=== PATIENT | male | born 1955 | race Caucasian/White ===

== ENCOUNTER 2019-03-13 04:02 | Inpatient (IN) | payer MEDICARE, OTHER, MEDICAID ==
[2019-03-13] MEDS ORDERED: Sodium Chloride 0.9% 10 ML Syringe FLUSH PRN (04:18)
[2019-03-13] MEDS ORDERED: Albuterol/Ipratropium 3.0-0.5 MG/3 ML Neb Soln NEB ONE (04:19)
--- NOTE | 2019-03-13 04:29 | EDM.PDOC ---
<Shay Mckenna Nilton - Last Filed: 03/13/19 06:17> ED HPI GENERAL MEDICAL PROBLEM - General Chief Complaint: Respiratory Problem Stated Complaint: [facility] Time Seen by Provider: 03/13/19 04:15 Source of Information: Reports: Patient, EMS, Long-Term Records, RN Notes Reviewed - History of Present Illness INITIAL COMMENTS - FREE TEXT/NARRATIVE: 63-year-old male has been brought by [facility] for evaluation of cough and difficulty breathing. He states he began becoming more short of breath than usual about a week ago. He has been coughing more than usual as well for about a week. His cough and breathing has worsened over the last 1-2 days and especially since last evening. He developed more severe respiratory distress early this morning and also noted to be dropping his oxygen level and increasing his heart rate. At that point EMS was called to transport patient here to the ED. On arrival to the ED he is on oxygen 6 L nasal cannula, still feeling short of breath. He states his cough is frequently productive of yellowish-green phlegm. He has no chest pain other than the sensation of difficulty breathing. No abdominal pain or vomiting. Patient will chills but no definite fever. He is insulin-dependent diabetic. He also does have history of hypertension and morbid obesity. - Related Data Allergies Allergy/AdvReac Type Severity Reaction Status Date / Time No Known Allergies Allergy Verified 03/13/19 04:15 Home Meds: Home Meds Aspirin 81 mg PO DAILY 11/08/15 [History] FLUoxetine [PROzac] 40 mg PO DAILY 11/08/15 [History] Lisinopril 20 mg PO DAILY 11/08/15 [History] Metoprolol Succinate [Toprol XL] 25 mg PO DAILY 11/08/15 [History] Rosuvastatin [Crestor] 10 mg PO DAILY 11/08/15 [History] metFORMIN HCl [Metformin HCl ER] 750 mg PO DAILY 11/08/15 [History] Exenatide Microspheres [Bydureon Pen] 2 mg SUBCUT WEEKLY 03/13/19 [History] FLUoxetine HCl [Fluoxetine HCl] 60 mg PO DAILY 03/13/19 [History] Furosemide [Lasix] 40 mg PO DAILY 03/13/19 [History] Insulin Aspart [NovoLOG] 25 unit SUBCUT TIDAC 03/13/19 [History] Insulin Glargine,Hum.Rec.Anlog [Blake Chavarria] 105 units SUBCUT DAILY [History] Insulin Lispro [Humalog Kwikpen U-100] 12 units SUBCUT DAILY 03/13/19 [History] Potassium Chloride [K-Tab ER] 20 meq PO DAILY 03/13/19 [History] busPIRone HCl [busPIRone] 30 mg PO BEDTIME 03/13/19 [History] Past Medical History HEENT History: Reports: Cataract Cardiovascular History: Reports: Hypertension Respiratory History: Reports: Sleep Apnea Genitourinary History: Reports: Urinary Incontinence Endocrine/Metabolic History: Reports: Diabetes, Type II, Obesity/BMI 30+ Dermatologic History: Reports: Cellulitis - Past Surgical History HEENT Surgical History: Reports: Cataract Surgery Social & Family History - Family History Family Medical History: Unobtainable Other HEENT Family History: Patient unsure of family medical history ED ROS GENERAL - Review of Systems Review Of Systems: See Below Constitutional: Reports: Chills. Denies: Fever HEENT: Denies: Rhinitis, Throat Pain Respiratory: Reports: Shortness of Breath, Wheezing, Cough, Sputum Cardiovascular: Denies: Chest Pain GI/Abdominal: Denies: Abdominal Pain, Vomiting Musculoskeletal: Reports: No Symptoms Skin: Denies: Rash Neurological: Reports: Dizziness ED EXAM, GENERAL - Physical Exam Exam: See Below General Appearance: Alert, Moderate Distress Eye Exam: Bilateral Eye: PERRL Throat/Mouth: Normal Inspection Head: Atraumatic Neck: Supple Respiratory/Chest: Respiratory Distress (Moderate tachypnea), Decreased Breath Sounds (Rapid shallow respirations). No: Rhonchi, Wheezing Cardiovascular: Tachycardia GI/Abdominal: Distended (Quite markedly obese). No: Guarding, Tender Back Exam: Normal Inspection Extremities: Pedal Edema (Trace bilateral) Neurological: Alert, Oriented, No Motor/Sensory Deficits Skin Exam: Warm, Dry, Normal Color EKG INTERPRETATION EKG Date: 03/13/19 Rhythm: Other (Sinus tachycardia) Rate (Beats/Min): 115 [place]: Normal P-Wave: Present QRS: Normal ST-T: Normal Course - Vital Signs Last Recorded V/S: Last Vital Signs Temp 36.4 C 03/13/19 04:11 Pulse 99 03/13/19 05:16 Resp 33 H 03/13/19 04:11 BP 102/62 03/13/19 05:16 Pulse Ox 94 L 03/13/19 04:19 - Orders/Labs/Meds Orders: Active Orders 24 hr Category Date Time Status EKG 12 Lead [EKG Documentation Completion] [] STAT Care 03/13/19 04:18 Active Oxygen Therapy [RC] ASDIRECTED Care 03/13/19 04:18 Active Peripheral IV Care [RC] . DIRECTED Care 03/13/19 04:18 Active RT Aerosol Therapy [RC] ASDIRECTED Care 03/13/19 04:19 Active CULTURE BLOOD [BC] Stat Lab 03/13/19 04:25 Received CULTURE BLOOD [BC] Stat Lab 03/13/19 05:10 Received CULTURE SPUTUM + SMEAR [] Stat Lab 03/13/19 05:50 Received Piperacillin/Tazobactam [Piperacil-Tazobact] 4.5 gm Med 03/13/19 04:53 Active Sodium Chloride 0.9% [Normal Saline] 100 ml IV ONETIME Sodium Chloride 0.9% [Saline Flush] Med 03/13/19 04:18 Active 10 ml FLUSH ASDIRECTED PRN Peripheral IV Insertion Adult [OM.PC] Stat Oth 03/13/19 04:18 Ordered Medication Orders Piperacillin Sod/Tazobactam (Sod 4.5 gm/ Sodium Chloride) 100 mls @ 25 mls/hr IV ONETIME ONE Stop: 03/13/19 08:52 Last Admin: 03/13/19 06:44 Dose: 25 mls/hr Sodium Chloride (Saline Flush) 10 ml FLUSH ASDIRECTED PRN PRN Reason: Keep Vein Open Last Admin: 03/13/19 04:33 Dose: 10 ml Labs: Laboratory Tests 03/13/19 03/13/19 03/13/19 Range/Units 04:25 04:25 04:25 WBC 11.45 H (4.23-9.07) K/mm3 RBC 5.26 (4.63-6.08) M/mm3 Hgb 14.7 (13.7-17.5) gm/L Hct 46.9 (40.1-51.0) % MCV 89.2 (79.0-92.2) fl MCH 27.9 (25.7-32.2) pg MCHC 31.3 L (32.2-35.5) g/dl RDW Std Deviation 49.7 H (35.1-43.9) fL Plt Count 205 D (163-337) K/mm3 MPV 11.2 (9.4-12.3) fl Neutrophils % (Manual) 64 H (40-60) % Band Neutrophils % 6 (0-10) % Lymphocytes % (Manual) 15 L (20-40) % Atypical Lymphs % 0 % Monocytes % (Manual) 15 H (2-10) % Eosinophils % (Manual) 0 L (0.8-7.0) % Basophils % (Manual) 0 L (0.2-1.2) Toxic Granulation 1+ slight Platelet Estimate Adequate Plt Morphology Comment See note Hypochromasia 1+ slight Anisocytosis 1+ slight RBC Morph Comment Not Reportable Sodium 140 (136-145) mEq/L Potassium 4.5 (3.5-5.1) mEq/L Chloride 104 (98-107) mEq/L Carbon Dioxide 29 (21-32) mEq/L Anion Gap 11.5 (5-15) BUN 23 H (7-18) mg/dL Creatinine 0.9 (0.7-1.3) mg/dL Est Cr Clr Drug Dosing TNP Estimated GFR (MDRD) > 60 (>60) mL/min BUN/Creatinine Ratio 25.6 H (14-18) Glucose 182 H (80-115) mg/dL Lactic Acid (0.4-2.0) mmol/L Calcium 8.9 (8.5-10.1) mg/dL Total Bilirubin 0.6 (0.2-1.0) mg/dL AST 11 L (15-37) U/L ALT 20 (16-63) U/L Alkaline Phosphatase 99 (46-116) U/L C-Reactive Protein 18.6 H* (<1.0) mg/dL NT-Pro-B Natriuret Pep (0-125) pg/mL Total Protein 7.1 (6.4-8.2) g/dl Albumin 3.1 L (3.4-5.0) g/dl Globulin 4.0 gm/dL Albumin/Globulin Ratio 0.8 L (1-2) 03/13/19 03/13/19 Range/Units 04:25 04:25 WBC (4.23-9.07) K/mm3 RBC (4.63-6.08) M/mm3 Hgb (13.7-17.5) gm/L Hct (40.1-51.0) % MCV (79.0-92.2) fl MCH (25.7-32.2) pg MCHC (32.2-35.5) g/dl RDW Std Deviation (35.1-43.9) fL Plt Count (163-337) K/mm3 MPV (9.4-12.3) fl Neutrophils % (Manual) (40-60) % Band Neutrophils % (0-10) % Lymphocytes % (Manual) (20-40) % Atypical Lymphs % % Monocytes % (Manual) (2-10) % Eosinophils % (Manual) (0.8-7.0) % Basophils % (Manual) (0.2-1.2) Toxic Granulation Platelet Estimate Plt Morphology Comment Hypochromasia Anisocytosis RBC Morph Comment Sodium (136-145) mEq/L Potassium (3.5-5.1) mEq/L Chloride (98-107) mEq/L Carbon Dioxide (21-32) mEq/L Anion Gap (5-15) BUN (7-18) mg/dL Creatinine (0.7-1.3) mg/dL Est Cr Clr Drug Dosing Estimated GFR (MDRD) (>60) mL/min BUN/Creatinine Ratio (14-18) Glucose (80-115) mg/dL Lactic Acid 1.3 (0.4-2.0) mmol/L Calcium (8.5-10.1) mg/dL Total Bilirubin (0.2-1.0) mg/dL AST (15-37) U/L ALT (16-63) U/L Alkaline Phosphatase (46-116) U/L C-Reactive Protein (<1.0) mg/dL NT-Pro-B Natriuret Pep 147 H (0-125) pg/mL Total Protein (6.4-8.2) g/dl Albumin (3.4-5.0) g/dl Globulin gm/dL Albumin/Globulin Ratio (1-2) Meds: Medications Generic Name Dose Route Start Last Admin Trade Name Freq PRN Reason Stop Dose Admin Piperacillin Sod/Tazobactam 100 mls @ 25 mls/hr 03/13/19 04:53 03/13/19 06:44 Sod 4.5 gm/ Sodium Chloride IV 03/13/19 08:52 25 mls/hr ONETIME ONE Administration Sodium Chloride 10 ml 03/13/19 04:18 03/13/19 04:33 Saline Flush FLUSH 10 ml ASDIRECTED PRN Administration Keep Vein Open Discontinued Medications Generic Name Dose Route Start Last Admin Trade Name Freq PRN Reason Stop Dose Admin Albuterol/Ipratropium 3 ml 03/13/19 04:19 03/13/19 04:25 Duoneb 3.0-0.5 Mg/3 Ml NEB 03/13/19 04:20 3 ml ONETIME ONE Administration Levofloxacin/Dextrose 750 mg/ 150 mls @ 100 mls/hr 03/13/19 04:54 03/13/19 05 :13 Premix IV 03/13/19 06:23 100 mls/hr ONETIME ONE Administration Lisinopril 20 mg 03/13/19 05:03 03/13/19 05:15 Prinivil PO 03/13/19 05:04 20 mg ONETIME ONE Administration Metoprolol Succinate 50 mg 03/13/19 05:04 03/13/19 05:16 Toprol Xl PO 03/13/19 05:05 50 mg ONETIME ONE Administration - Re-Assessments/Exams Free Text/Narrative Re-Assessment/Exam: 03/13/19 05:20. CXR shows probable infiltrate L lower lobe, mild pulmonary jessica. WBC 11,450. 64 seg, 6 band. pro BNP only 147. Have had lab draw blood cultures 2. Levaquin 750 mg IV and Zosyn 4.5 g IV has been ordered. 03/13/19 06:15 C reactive protein 18.6. antibiotics are infusing. Duoneb was done on arrival. Will give an albuterol neb at this time. Awaiting more appropriate time for admission, will transfer care to Dr Thurman at this time. Departure - Departure Disposition: Admitted As Inpatient 66 Clinical Impression: Hypoxemia Pneumonia Qualifiers: Pneumonia type: due to unspecified organism Laterality: left Lung location: lower lobe of lung Qualified Code(s): J18.1 - Lobar pneumonia, unspecified organism - Discharge Information Referrals: Samuel Hoyos MD [Primary Care Provider] - <Harjeet Thurman - Last Filed: 03/13/19 07:18> Course - Re-Assessments/Exams Free Text/Narrative Re-Assessment/Exam: 03/13/19 06:37 Assuming the care of the patient from Dr. Colleen Mckenna, for change of shift. Dr. Mckenna feels that the patient has pneumonia, and would like the patient to be admitted. I will be contacting the Hospitalist around 07:00 to make such arrangements. I examined the patient about 15 minutes ago, finding him to be seated on the side of his gurney, smiling at me. He did not appear to be in any respiratory distress. His oxygen saturation was 93% on 5 L of oxygen per nasal cannula. The patient told me that he does not ordinarily wear supplemental oxygen. On my examination, I did not hear any crackles, rhonchi, or wheezes, although the patient's lung sounds were generally diminished throughout. I note that the patient's CBC is remarkable for a WBC count elevated at 11.45 with 6% bandemia, and his CRP is elevated at 18.6. Both of these are consistent with a bacterial infection. I reviewed the portable chest x-ray, which appears to demonstrate cardiomegaly with possible mild pulmonary vascular congestion versus bilateral interstitial infiltrates. No pleural effusions are seen on this AP view. There may be some pericardiac fat at the right base. There is some hyperinflation and bilateral diaphragmatic flattening, suggestive of COPD. The patient's BNP returned relatively normal at 147, decreasing the likelihood of CHF, however, it is possible that the patient has diastolic CHF leading to both cardiomegaly and pulmonary edema, without an elevated BNP. Only an echocardiogram could make this determination, however. 03/13/19 07:[address] Quinn at 07:12. He accepted the patient to the medical -surgical floor, but requested that I order an ABG. Departure - Departure Time of Disposition: 07:17 Condition: Good - Discharge Information *PRESCRIPTION DRUG MONITORING PROGRAM REVIEWED*: Not Applicable *COPY OF PRESCRIPTION DRUG MONITORING REPORT IN PATIENT YESI: Not Applicable
[2019-03-13] MEDS ORDERED: Piperacillin/Tazobactam 4.5 GM in Sodium Chloride 0.9% 100 ML IV ONE (04:53)
[2019-03-13] MEDS ORDERED: Levofloxacin/Dextrose 5%-Water 750 MG in Premix Bag 1 BAG IV ONE (04:54)
[2019-03-13] MEDS ORDERED: Lisinopril 20 MG Tab PO ONE (05:03)
[2019-03-13] MEDS ORDERED: Metoprolol Succinate 50 MG Tab.ER PO ONE (05:04)
--- NOTE | 2019-03-13 07:06 | CR ---
Chest: Portable view of the chest was obtained. Comparison: Prior chest x-ray of 11/09/15. Heart is enlarged. Upper mediastinum is within normal limits. Slight chronic pulmonary vascular congestion is noted. Minimal atelectasis is seen within the left midlung. Impression: 1. Cardiomegaly and mild chronic pulmonary vascular congestion. Diagnostic code #3
[2019-03-13] MEDS ORDERED: Acetaminophen 325 MG Tab PO PRN (11:10)
[2019-03-13] MEDS ORDERED: Ondansetron 4 MG Tab.DIS PO PRN (11:10)
[2019-03-13] MEDS ORDERED: Non-Formulary Medication 1 Each (Exenatide Microspheres [Bydureon Pen] 2 MG) SUBCUT SCH (11:15)
[2019-03-13] MEDS: guaiFENesin 600 MG Tab.ER PO PRN (12:07)
[2019-03-13] MEDS: Insulin Lispro 100 Units/ML 3 ML Vial SUBCUT SCH ×4 (12:08→21:00)
[2019-03-13] MEDS: Piperacillin/Tazobactam 4.5 GM in Sodium Chloride 0.9% 100 ML IV SCH ×3 (13:21→21:30)
--- NOTE | 2019-03-13 14:14 | PCM.HP ---
H&P History of Present Illness - General Date of Service: 03/13/19 Admit Problem/Dx: Admission Diagnosis/Problem Admission Diagnosis/Problem Pneumonia Source of Information: Patient, Provider - History of Present Illness Initial Comments - Free Text/Narative: 63-year-old type I diabetic with morbid obesity presented to the emergency room with a 1-1/2 week history of productive cough of green sputum. He's had worsening shortness of breath over the last week. He lives at [facility] for the last year and 4 months because of not being able to perform ADLs. Patient denies any fever or chills. This morning at the [facility] was found to be more short of breath than usual. As his restaurant distress worsened this morning his oxygen saturations dropped into the 80s. He was transported to the emergency room via EMS on 6 L nasal cannula. In the emergency room he was started on antibiotics and given a breathing treatment. Chest x-ray showed a questionable left lower lobe infiltrate with mild pulmonary congestion. C-reactive protein was 18.6, white blood cell count 11, 450 with 64% segs and 6 bands. ProBNP was only 147. He was given Levaquin 750 mg IV and Zosyn 4.5 g IV and blood cultures were drawn. Patient was decreased to 5 L of oxygen per nasal cannula with oxygen saturations of 93% or higher. - Related Data Allergies/Adverse Reactions: Allergies Allergy/AdvReac Type Severity Reaction Status Date / Time No Known Allergies Allergy Verified 03/13/19 04:15 Home Medications: Home Meds Aspirin 81 mg PO DAILY 11/08/15 [History] FLUoxetine [PROzac] 60 mg PO DAILY 11/08/15 [History] Lisinopril 20 mg PO DAILY 11/08/15 [History] Metoprolol Succinate [Toprol XL] 25 mg PO DAILY 11/08/15 [History] Rosuvastatin [Crestor] 10 mg PO DAILY 11/08/15 [History] metFORMIN HCl [Metformin HCl ER] 750 mg PO DAILY 11/08/15 [History] Exenatide Microspheres [Bydureon Pen] 2 mg SUBCUT WEEKLY 03/13/19 [History] FLUoxetine HCl [Fluoxetine HCl] 60 mg PO DAILY 03/13/19 [History] Furosemide [Lasix] 40 mg PO DAILY 03/13/19 [History] Insulin Aspart [NovoLOG] 25 unit SUBCUT TIDAC 03/13/19 [History] Insulin Glargine,Hum.Rec.Anlog [Touantoineo Solostar] 105 units SUBCUT DAILY [History] Insulin Lispro [Humalog Kwikpen U-100] 25 units SUBCUT DAILY 03/13/19 [History] Nystatin 1 applic TOP BID PRN 03/13/19 [History] Potassium Chloride [K-Tab ER] 20 meq PO DAILY 03/13/19 [History] Pramoxine HCl/Calamine [Calamine Medicated Lotion] 1 applic TOP BID PRN [History] Triamcinolone Acetonide [Triamcinolone Acetonide 0.1% Crm] 1 applic TOP BID PRN 03/13/19 [History] busPIRone HCl [busPIRone] 30 mg PO BEDTIME 03/13/19 [History] guaiFENesin [Mucinex] 600 mg PO BID PRN 03/13/19 [History] Past Medical History HEENT History: Reports: Cataract Other HEENT History: Wears glasses Cardiovascular History: Reports: High Cholesterol, Hypertension Other Cardiovascular History: Cardiomegaly Respiratory History: Reports: Sleep Apnea Other Respiratory History: uses CPAP Genitourinary History: Reports: Urinary Incontinence Psychiatric History: Reports: Anxiety, Depression, Developmental Delay Endocrine/Metabolic History: Reports: Diabetes, Type II, Obesity/BMI 30+ Dermatologic History: Reports: Cellulitis, Other (See Below) Other Dermatologic History: xerosis cutis - Past Surgical History HEENT Surgical History: Reports: Cataract Surgery Cardiovascular Surgical History: Reports: None Respiratory Surgical History: Reports: None Male Surgical History: Reports: None Neurological Surgical History: Reports: None Dermatological Surgical History: Reports: None Social & Family History - Family History Family Medical History: Noncontributory Other HEENT Family History: Patient unsure of family medical history - Tobacco Use Smoking Status *Q: Never Smoker Second Hand Smoke Exposure: No - Recreational Drug Use Recreational Drug Use: No H&P Review of Systems - Review of Systems: Review Of Systems: ROS reveals no pertinent complaints other than HPI. Exam - Exam Exam: See Below - Vital Signs Vital Signs: Last Vital Signs Temp 98.1 F 03/13/19 08:28 Pulse 84 03/13/19 08:28 Resp 26 H 03/13/19 08:28 BP 104/65 03/13/19 08:28 Pulse Ox 94 L 03/13/19 11:10 Weight: 355 lb 12.8 oz - Exam Quality Assessment: Supplemental Oxygen General: Alert, Oriented, Other (Morbidly obese) HEENT: Conjunctiva Clear, Mucosa Moist & [place], Nares Patent, Posterior Pharynx Clear Neck: Supple, Trachea Midline Lungs: Normal Respiratory Effort, Decreased Breath Sounds (Due to body habitus) Cardiovascular: Regular Rate, Regular Rhythm GI/Abdominal Exam: Normal Bowel Sounds, Soft, Non-Tender, No Distention Extremities: Normal Inspection, Normal Range of Motion, No Pedal Edema, Normal Capillary Refill Skin: Warm, Dry, Intact Neurological: Cranial Nerves Intact Neuro Extensive - Mental Status: Alert, Oriented x3 Neuro Extensive - Motor, Sensory, Reflexes: CN II-XII Intact Psychiatric: Alert, Normal Affect, Normal Mood - Patient Data Lab Results Last 24 hrs: Laboratory Results - last 24 hr 03/13/19 03/13/19 03/13/19 Range/Units 04:25 04:25 04:25 WBC 11.45 H (4.23-9.07) K/mm3 RBC 5.26 (4.63-6.08) M/mm3 Hgb 14.7 (13.7-17.5) gm/L Hct 46.9 (40.1-51.0) % MCV 89.2 (79.0-92.2) fl MCH 27.9 (25.7-32.2) pg MCHC 31.3 L (32.2-35.5) g/dl RDW Std Deviation 49.7 H (35.1-43.9) fL Plt Count 205 D (163-337) K/mm3 MPV 11.2 (9.4-12.3) fl Neutrophils % (Manual) 64 H (40-60) % Band Neutrophils % 6 (0-10) % Lymphocytes % (Manual) 15 L (20-40) % Atypical Lymphs % 0 % Monocytes % (Manual) 15 H (2-10) % Eosinophils % (Manual) 0 L (0.8-7.0) % Basophils % (Manual) 0 L (0.2-1.2) Toxic Granulation 1+ slight Platelet Estimate Adequate Plt Morphology Comment See note Hypochromasia 1+ slight Anisocytosis 1+ slight RBC Morph Comment Not Reportable Puncture Site ABG pH (7.35-7.45) ABG pCO2 (35.0-45.0) mmHg ABG pO2 (80.0-100.0) mmHg ABG HCO3 (22.0-26.0) meq/L ABG O2 Saturation (96.0-97.0) % ABG Base Excess (-2-2.0) Cheo Test A-a Gradient mmHg O2 Delivery Device Oxygen Flow Rate FiO2 (21.00-100.00) % Sodium 140 (136-145) mEq/L Potassium 4.5 (3.5-5.1) mEq/L Chloride 104 (98-107) mEq/L Carbon Dioxide 29 (21-32) mEq/L Anion Gap 11.5 (5-15) BUN 23 H (7-18) mg/dL Creatinine 0.9 (0.7-1.3) mg/dL Est Cr Clr Drug Dosing TNP Estimated GFR (MDRD) > 60 (>60) mL/min BUN/Creatinine Ratio 25.6 H (14-18) Glucose 182 H (80-115) mg/dL POC Glucose (80-115) mg/dL Lactic Acid (0.4-2.0) mmol/L Calcium 8.9 (8.5-10.1) mg/dL Total Bilirubin 0.6 (0.2-1.0) mg/dL AST 11 L (15-37) U/L ALT 20 (16-63) U/L Alkaline Phosphatase 99 (46-116) U/L C-Reactive Protein 18.6 H* (<1.0) mg/dL NT-Pro-B Natriuret Pep (0-125) pg/mL Total Protein 7.1 (6.4-8.2) g/dl Albumin 3.1 L (3.4-5.0) g/dl Globulin 4.0 gm/dL Albumin/Globulin Ratio 0.8 L (1-2) MRSA (PCR) 03/13/19 03/13/19 03/13/19 Range/Units 04:25 04:25 08:16 WBC (4.23-9.07) K/mm3 RBC (4.63-6.08) M/mm3 Hgb (13.7-17.5) gm/L Hct (40.1-51.0) % MCV (79.0-92.2) fl MCH (25.7-32.2) pg MCHC (32.2-35.5) g/dl RDW Std Deviation (35.1-43.9) fL Plt Count (163-337) K/mm3 MPV (9.4-12.3) fl Neutrophils % (Manual) (40-60) % Band Neutrophils % (0-10) % Lymphocytes % (Manual) (20-40) % Atypical Lymphs % % Monocytes % (Manual) (2-10) % Eosinophils % (Manual) (0.8-7.0) % Basophils % (Manual) (0.2-1.2) Toxic Granulation Platelet Estimate Plt Morphology Comment Hypochromasia Anisocytosis RBC Morph Comment Puncture Site Lt radial ABG pH 7.37 (7.35-7.45) ABG pCO2 48.1 H (35.0-45.0) mmHg ABG pO2 77.0 L (80.0-100.0) mmHg ABG HCO3 27.2 H (22.0-26.0) meq/L ABG O2 Saturation 93.0 L (96.0-97.0) % ABG Base Excess 1.7 (-2-2.0) Cheo Test Positive A-a Gradient 119 mmHg O2 Delivery Device Nasal cannula Oxygen Flow Rate 5.0 FiO2 40.00 (21.00-100.00) % Sodium (136-145) mEq/L Potassium (3.5-5.1) mEq/L Chloride (98-107) mEq/L Carbon Dioxide (21-32) mEq/L Anion Gap (5-15) BUN (7-18) mg/dL Creatinine (0.7-1.3) mg/dL Est Cr Clr Drug Dosing Estimated GFR (MDRD) (>60) mL/min BUN/Creatinine Ratio (14-18) Glucose (80-115) mg/dL POC Glucose (80-115) mg/dL Lactic Acid 1.3 (0.4-2.0) mmol/L Calcium (8.5-10.1) mg/dL Total Bilirubin (0.2-1.0) mg/dL AST (15-37) U/L ALT (16-63) U/L Alkaline Phosphatase (46-116) U/L C-Reactive Protein (<1.0) mg/dL NT-Pro-B Natriuret Pep 147 H (0-125) pg/mL Total Protein (6.4-8.2) g/dl Albumin (3.4-5.0) g/dl Globulin gm/dL Albumin/Globulin Ratio (1-2) MRSA (PCR) 03/13/19 03/13/19 Range/Units 08:40 11:00 WBC (4.23-9.07) K/mm3 RBC (4.63-6.08) M/mm3 Hgb (13.7-17.5) gm/L Hct (40.1-51.0) % MCV (79.0-92.2) fl MCH (25.7-32.2) pg MCHC (32.2-35.5) g/dl RDW Std Deviation (35.1-43.9) fL Plt Count (163-337) K/mm3 MPV (9.4-12.3) fl Neutrophils % (Manual) (40-60) % Band Neutrophils % (0-10) % Lymphocytes % (Manual) (20-40) % Atypical Lymphs % % Monocytes % (Manual) (2-10) % Eosinophils % (Manual) (0.8-7.0) % Basophils % (Manual) (0.2-1.2) Toxic Granulation Platelet Estimate Plt Morphology Comment Hypochromasia Anisocytosis RBC Morph Comment Puncture Site ABG pH (7.35-7.45) ABG pCO2 (35.0-45.0) mmHg ABG pO2 (80.0-100.0) mmHg ABG HCO3 (22.0-26.0) meq/L ABG O2 Saturation (96.0-97.0) % ABG Base Excess (-2-2.0) Cheo Test A-a Gradient mmHg O2 Delivery Device Oxygen Flow Rate FiO2 (21.00-100.00) % Sodium (136-145) mEq/L Potassium (3.5-5.1) mEq/L Chloride (98-107) mEq/L Carbon Dioxide (21-32) mEq/L Anion Gap (5-15) BUN (7-18) mg/dL Creatinine (0.7-1.3) mg/dL Est Cr Clr Drug Dosing Estimated GFR (MDRD) (>60) mL/min BUN/Creatinine Ratio (14-18) Glucose (80-115) mg/dL POC Glucose 161 H (80-115) mg/dL Lactic Acid (0.4-2.0) mmol/L Calcium (8.5-10.1) mg/dL Total Bilirubin (0.2-1.0) mg/dL AST (15-37) U/L ALT (16-63) U/L Alkaline Phosphatase (46-116) U/L C-Reactive Protein (<1.0) mg/dL NT-Pro-B Natriuret Pep (0-125) pg/mL Total Protein (6.4-8.2) g/dl Albumin (3.4-5.0) g/dl Globulin gm/dL Albumin/Globulin Ratio (1-2) MRSA (PCR) Negative Result Diagrams: 03/13/19 04:25 03/13/19 04:25 Kyle Results Last 24 hrs: Microbiology 03/13/19 05:50 Gram Stain - Final Sputum - Expectorated - Problem List (1) Hypoxemia SNOMED Code(s): 927856790 ICD Code: R09.02 - HYPOXEMIA Status: Acute Current Visit: Yes (2) Pneumonia SNOMED Code(s): 037925141 ICD Code: J18.9 - PNEUMONIA, UNSPECIFIED ORGANISM Status: Acute Current Visit: Yes Qualifiers: Pneumonia type: due to unspecified organism Laterality: left Lung location: lower lobe of lung Qualified Code(s): J18.1 - Lobar pneumonia, unspecified organism (3) Respiratory failure with hypoxia SNOMED Code(s): 92108645657435363 ICD Code: J96.91 - RESPIRATORY FAILURE, UNSPECIFIED WITH HYPOXIA Status: Acute Current Visit: No Qualifiers: Chronicity: acute Qualified Code(s): J96.01 - Acute respiratory failure with hypoxia (4) Diabetes SNOMED Code(s): 62128510 ICD Code: E11.9 - TYPE 2 DIABETES MELLITUS WITHOUT COMPLICATIONS Status: Chronic Current Visit: No Qualifiers: Diabetes mellitus type: type 2 Diabetes mellitus complication status: with skin complications Diabetes mellitus complication detail: with dermatitis Qualified Code(s): E11.620 - Type 2 diabetes mellitus with diabetic dermatitis (5) Morbid obesity SNOMED Code(s): 033947129 ICD Code: E66.01 - MORBID (SEVERE) OBESITY DUE TO EXCESS CALORIES Status: Chronic Current Visit: No Problem List Initiated/Reviewed/Updated: Yes Orders Last 24hrs: Active Orders 24 hr Category Date Time Status Admission Status [Patient Status] [ADT] Routine ADT 03/13/19 07:32 Active Oxygen Therapy [RC] ASDIRECTED Care 03/13/19 04:18 Active Oxygen Therapy [RC] PRN Care 03/13/19 11:10 Active Peripheral IV Care [RC] . DIRECTED Care 03/13/19 04:18 Active RT Aerosol Therapy [RC] ASDIRECTED Care 03/13/19 11:12 Active Up ad Lo [RC] ASDIRECTED Care 03/13/19 11:10 Active VTE/DVT Education [RC] PER UNIT ROUTINE Care 03/13/19 11:10 Active Vital Signs [RC] Q4H Care 03/13/19 11:10 Active OT Evaluation and Treatment [CONS] Routine Cons 03/13/19 11:20 Active PT Evaluation and Treatment [CONS] Routine Cons 03/13/19 11:20 Active Regular Diet [DIET] Diet 03/13/19 Breakfast Active CBC WITH AUTO DIFF [HEME] AM Lab 03/14/19 05:11 Ordered COMPREHENSIVE METABOLIC PN,CMP [CHEM] AM Lab 03/14/19 05:11 Ordered CULTURE BLOOD [BC] Stat Lab 03/13/19 04:25 Received CULTURE BLOOD [BC] Stat Lab 03/13/19 05:10 Received CULTURE SPUTUM + SMEAR [RM] Stat Lab 03/13/19 05:50 Results LEGIONELLA ANTIGEN [MREF] Routine Lab 03/13/19 11:20 Ordered MAGNESIUM [CHEM] AM Lab 03/14/19 05:11 Ordered STREP PNEUMONIAE ANTIGEN [MREF] Routine Lab 03/13/19 11:20 Ordered Acetaminophen [Tylenol] Med 03/13/19 11:10 Active 650 mg PO Q4H PRN Albuterol/Ipratropium [DuoNeb 3.0-0.5 MG/3 ML] Med 03/13/19 11:10 Active 3 ml NEB Q4H PRN Aspirin Med 03/14/19 09:00 Active 81 mg PO DAILY Enoxaparin [Lovenox] Med 03/14/19 09:00 Active 40 mg SUBCUT DAILY FLUoxetine [PROzac] Med 03/14/19 09:00 Active 60 mg PO DAILY Furosemide [Lasix] Med 03/14/19 09:00 Active 40 mg PO DAILY Insulin Glarg,Human.Rec.Analog [LantUS] Med 03/13/19 21:00 Ordered 60 unit SUBCUT BEDTIME Insulin Lispro [HumaLOG] Med 03/13/19 17:00 Ordered 20 unit SUBCUT TIDAC Insulin Lispro [HumaLOG] Med 03/13/19 11:00 Active See Protocol SUBCUT QIDACANDBED Lisinopril [Prinivil] Med 03/14/19 09:00 Active 20 mg PO DAILY Metoprolol Succinate [Toprol XL] Med 03/14/19 09:00 Active 25 mg PO DAILY Ondansetron [Zofran ODT] Med 03/13/19 11:10 Active 4 mg PO Q4H PRN Piperacillin/Tazobactam [Piperacil-Tazobact] 4.5 gm Med 03/13/19 14:30 Active Sodium Chloride 0.9% [Normal Saline] 100 ml IV Q8H Potassium Chloride [Klor-Con M20] Med 03/14/19 09:00 Active 20 meq PO DAILY Rosuvastatin [Crestor] Med 03/14/19 09:00 Active 10 mg PO DAILY Sodium Chloride 0.9% [Saline Flush] Med 03/13/19 04:18 Active 10 ml FLUSH ASDIRECTED PRN busPIRone [Buspar] Med 03/13/19 21:00 Active 30 mg PO BEDTIME guaiFENesin [Mucinex] Med 03/13/19 11:12 Active 600 mg PO BID PRN levoFLOXacin [Levaquin] Med 03/14/19 09:00 Active 750 mg PO Q24H metFORMIN [Glucophage] Med 03/14/19 09:00 Active 750 mg PO DAILY Peripheral IV Insertion Adult [OM.PC] Stat Oth 03/13/19 04:18 Ordered Resuscitation Status Routine Resus Stat 03/13/19 08:38 Ordered Medication Orders Acetaminophen (Tylenol) 650 mg PO Q4H PRN PRN Reason: Pain (Mild 1-3)/fever Albuterol/Ipratropium (Duoneb 3.0-0.5 Mg/3 Ml) 3 ml NEB Q4H PRN PRN Reason: Shortness Of Breath/wheezing Aspirin (Aspirin) 81 mg PO DAILY LUZ ELENA Buspirone HCl (Buspar) 30 mg PO BEDTIME LUZ ELENA Enoxaparin Sodium (Lovenox) 40 mg SUBCUT DAILY [facility] Fluoxetine HCl (Prozac) 60 mg PO DAILY [facility] Furosemide (Lasix) 40 mg PO DAILY LUZ ELENA Guaifenesin (Mucinex) 600 mg PO BID PRN PRN Reason: Cough Last Admin: 03/13/19 12:07 Dose: 600 mg Piperacillin Sod/Tazobactam (Sod 4.5 gm/ Sodium Chloride) 100 mls @ 25 mls/hr IV Q8H LUZ ELENA Last Admin: 03/13/19 13:42 Dose: Admin: 03/13/19 13:21 Dose: 25 mls/hr Insulin Glargine (Lantus) 60 unit SUBCUT BEDTIME [facility] Insulin Human Lispro (Humalog) 0 unit SUBCUT QIDACANDBED [facility]; Protocol Last Admin: 03/13/19 12:08 Dose: 2 units Insulin Human Lispro (Humalog) 20 unit SUBCUT TIDAC [facility] Levofloxacin (Levaquin) 750 mg PO Q24H [facility] Lisinopril (Prinivil) 20 mg PO DAILY [facility] Metformin HCl (Glucophage) 750 mg PO DAILY [facility] Metoprolol Succinate (Toprol Xl) 25 mg PO DAILY [facility] Ondansetron HCl (Zofran Odt) 4 mg PO Q4H PRN PRN Reason: nausea, able to take PO Potassium Chloride (Klor-Con M20) 20 meq PO DAILY [facility]Z ELENA Rosuvastatin Calcium (Crestor) 10 mg PO DAILY [facility] Sodium Chloride (Saline Flush) 10 ml FLUSH ASDIRECTED PRN PRN Reason: Keep Vein Open Last Admin: 03/13/19 04:33 Dose: 10 ml Assessment/Plan Comment:: Pneumonia * White count of 14,000 with elevated C-reactive protein of 18.6 and 6% bandemia * Continue Levaquin 750 mg daily and Zosyn 4.5 mg every 6. * Incentive spirometry and albuterol/ipratropium bromide every 4 hours when necessary * Follow CBC and C-reactive protein in the morning Diabetes * From the patient's home medications appears he is very insulin resistant. * Decrease his home insulin by 20%. * Follow fingerstick blood sugars very closely secondary to Levaquin hypoglycemic potential Hypoxemia * FiO2 to keep oxygen saturations above 90%. * ABG did demonstrate slight elevation of his PCO2 at 48 and decreasing his PaO2 of 77%. * Continue home CPAP Order physical therapy and occupational therapy to keep him ambulating. VTE prophylaxis with Lovenox Anticipated late of stay 3 days.
[2019-03-13] MEDS: Albuterol/Ipratropium 3.0-0.5 MG/3 ML Neb Soln NEB PRN (14:15)
[2019-03-13] MEDS ORDERED: Insulin Lispro 100 Units/ML 3 ML Vial SUBCUT SCH (17:00)
[2019-03-13] MEDS: busPIRone 15 MG Tab PO SCH (20:59)
[2019-03-13] MEDS ORDERED: Insulin Glarg,Human.Rec.Analog 100 UNIT/ML ML SUBCUT SCH ×2 (21:00)
[2019-03-14] MEDS: guaiFENesin 600 MG Tab.ER PO PRN ×2 (01:21→08:06)
[2019-03-14] MEDS: Piperacillin/Tazobactam 4.5 GM in Sodium Chloride 0.9% 100 ML IV SCH ×3 (06:53→23:39)
[2019-03-14] MEDS: Insulin Lispro 100 Units/ML 3 ML Vial SUBCUT SCH ×8 (06:54→21:14)
[2019-03-14] MEDS: Potassium Chloride 20 MEQ Tab.ER PO SCH (08:06)
[2019-03-14] MEDS: Furosemide 40 MG Tab PO SCH (08:06)
[2019-03-14] MEDS: Aspirin 81 MG Tab.Chew PO SCH (08:06)
[2019-03-14] MEDS: FLUoxetine 20 MG Cap PO SCH (08:06)
[2019-03-14] MEDS: Metoprolol Succinate 25 MG Tab.ER PO SCH (08:07)
[2019-03-14] MEDS: metFORMIN 500 MG Tab PO SCH (08:07)
[2019-03-14] MEDS: Lisinopril 20 MG Tab PO SCH (08:07)
[2019-03-14] MEDS: Enoxaparin 40 MG/0.4 ML Syringe SUBCUT SCH (08:08)
[2019-03-14] MEDS: Rosuvastatin 10 MG Tab PO SCH (08:08)
[2019-03-14] MEDS: Levofloxacin 750 MG Tab PO SCH (08:08)
[2019-03-14] MEDS ORDERED: Insulin Glarg,Human.Rec.Analog 100 UNIT/ML ML SUBCUT SCH (09:00)
--- NOTE | 2019-03-14 10:40 | CR ---
Chest: Portable view of the chest is obtained. Comparison: Previous chest x-ray of 03/13/19. Heart is mildly enlarged. Pulmonary vessels are mildly congested which appear stable from previous exam. Very slight areas of atelectasis are seen within the right mid and lower lung. Lungs otherwise are clear. Bony structures are grossly intact. Pressure: 1. Mild areas of atelectasis within right mid and lower lung. 2. Stable cardiomegaly and mild chronic pulmonary vascular congestion. Diagnostic code #3
--- NOTE | 2019-03-14 13:16 | PCM.PN ---
- General Info Date of Service: 03/14/19 Admission Dx/Problem (Free Text): Admission Diagnosis/Problem Admission Diagnosis/Problem Pneumonia Subjective Update: March 14, 2019 Patient had an uneventful night. He is afebrile and has been weaned to 4 L nasal cannula from 5. He is on 2-1/2 L at home both of the day and at night. White count decreased to 9000. Functional Status: Reports: Pain Controlled - Review of Systems General: Reports: No Symptoms HEENT: Reports: No Symptoms Pulmonary: Reports: Shortness of Breath Cardiovascular: Denies: Chest Pain, Dyspnea on Exertion Gastrointestinal: Denies: Abdominal Pain - Patient Data Vitals - Most Recent: Last Vital Signs Temp 98.2 F 03/14/19 11:42 Pulse 78 03/14/19 11:42 Resp 16 03/14/19 11:42 BP 132/98 H 03/14/19 11:42 Pulse Ox 93 L 03/14/19 11:42 Weight - Most Recent: 350 lb 12.8 oz I&O - Last 24 Hours: Intake & Output 03/13/19 03/14/19 03/14/19 22:59 06:59 14:59 Intake Total 800 1148 180 Output Total 700 400 Balance 100 748 180 Lab Results Last 24 Hours: Laboratory Results - last 24 hr 03/13/19 03/13/19 03/14/19 Range/Units 17:15 20:47 05:20 WBC 9.29 H (4.23-9.07) K/mm3 RBC 5.04 (4.63-6.08) M/mm3 Hgb 14.4 (13.7-17.5) gm/L Hct 45.3 (40.1-51.0) % MCV 89.9 (79.0-92.2) fl MCH 28.6 (25.7-32.2) pg MCHC 31.8 L (32.2-35.5) g/dl RDW Std Deviation 49.2 H (35.1-43.9) fL Plt Count 180 (163-337) K/mm3 MPV 11.7 (9.4-12.3) fl Neut % (Auto) 68.5 H (34.0-67.9) % Lymph % (Auto) 15.4 L (21.8-53.1) % [place] % (Auto) 14.5 H (5.3-12.2) % Eos % (Auto) 1.2 (0.8-7.0) Baso % (Auto) 0.1 (0.1-1.2) % Neut # (Auto) 6.36 H (1.78-5.38) K/mm3 Lymph # (Auto) 1.43 (1.32-3.57) K/mm3 [place] # (Auto) 1.35 H (0.30-0.82) K/mm3 Eos # (Auto) 0.11 (0.04-0.54) K/mm3 Baso # (Auto) 0.01 (0.01-0.08) K/mm3 Sodium (136-145) mEq/L Potassium (3.5-5.1) mEq/L Chloride (98-107) mEq/L Carbon Dioxide (21-32) mEq/L Anion Gap (5-15) BUN (7-18) mg/dL Creatinine (0.7-1.3) mg/dL Est Cr Clr Drug Dosing mL/min Estimated GFR (MDRD) (>60) mL/min BUN/Creatinine Ratio (14-18) Glucose (80-115) mg/dL POC Glucose 128 H 169 H (80-115) mg/dL Calcium (8.5-10.1) mg/dL Magnesium (1.8-2.4) mg/dl Total Bilirubin (0.2-1.0) mg/dL AST (15-37) U/L ALT (16-63) U/L Alkaline Phosphatase (46-116) U/L Total Protein (6.4-8.2) g/dl Albumin (3.4-5.0) g/dl Globulin gm/dL Albumin/Globulin Ratio (1-2) 03/14/19 03/14/19 03/14/19 Range/Units 05:20 05:47 11:06 WBC (4.23-9.07) K/mm3 RBC (4.63-6.08) M/mm3 Hgb (13.7-17.5) gm/L Hct (40.1-51.0) % MCV (79.0-92.2) fl MCH (25.7-32.2) pg MCHC (32.2-35.5) g/dl RDW Std Deviation (35.1-43.9) fL Plt Count (163-337) K/mm3 MPV (9.4-12.3) fl Neut % (Auto) (34.0-67.9) % Lymph % (Auto) (21.8-53.1) % [place] % (Auto) (5.3-12.2) % Eos % (Auto) (0.8-7.0) Baso % (Auto) (0.1-1.2) % Neut # (Auto) (1.78-5.38) K/mm3 Lymph # (Auto) (1.32-3.57) K/mm3 [place] # (Auto) (0.30-0.82) K/mm3 Eos # (Auto) (0.04-0.54) K/mm3 Baso # (Auto) (0.01-0.08) K/mm3 Sodium 143 (136-145) mEq/L Potassium 4.1 (3.5-5.1) mEq/L Chloride 105 (98-107) mEq/L Carbon Dioxide 30 (21-32) mEq/L Anion Gap 12.1 (5-15) BUN 27 H (7-18) mg/dL Creatinine 0.8 (0.7-1.3) mg/dL Est Cr Clr Drug Dosing 97.59 mL/min Estimated GFR (MDRD) > 60 (>60) mL/min BUN/Creatinine Ratio 33.8 H (14-18) Glucose 101 (80-115) mg/dL POC Glucose 126 H 111 (80-115) mg/dL Calcium 8.8 (8.5-10.1) mg/dL Magnesium 2.2 (1.8-2.4) mg/dl Total Bilirubin 0.6 (0.2-1.0) mg/dL AST 10 L (15-37) U/L ALT 17 (16-63) U/L Alkaline Phosphatase 84 (46-116) U/L Total Protein 6.5 (6.4-8.2) g/dl Albumin 2.6 L (3.4-5.0) g/dl Globulin 3.9 gm/dL Albumin/Globulin Ratio 0.7 L (1-2) Kyle Results Last 24 Hours: Microbiology 03/13/19 05:50 Gram Stain - Final Sputum - Expectorated Sputum Culture - Preliminary 03/13/19 05:10 Aerobic Blood Culture - Preliminary Blood NO GROWTH AFTER 1 DAY Anaerobic Blood Culture - Preliminary NO GROWTH AFTER 1 DAY 03/13/19 04:25 Aerobic Blood Culture - Preliminary Blood NO GROWTH AFTER 1 DAY Anaerobic Blood Culture - Preliminary NO GROWTH AFTER 1 DAY Med Orders - Current: Current Medications Acetaminophen (Tylenol) 650 mg PO Q4H PRN PRN Reason: Pain (Mild 1-3)/fever Albuterol/Ipratropium (Duoneb 3.0-0.5 Mg/3 Ml) 3 ml NEB Q4H PRN PRN Reason: Shortness Of Breath/wheezing Last Admin: 03/13/19 14:15 Dose: 3 ml Aspirin (Aspirin) 81 mg PO DAILY [facility] Last Admin: 03/14/19 08:06 Dose: 81 mg Buspirone HCl (Buspar) 30 mg PO BEDTIME [facility] Last Admin: 03/13/19 20:59 Dose: 30 mg Enoxaparin Sodium (Lovenox) 40 mg SUBCUT DAILY [facility] Last Admin: 03/14/19 08:08 Dose: 40 mg Fluoxetine HCl (Prozac) 60 mg PO DAILY [facility] Last Admin: 03/14/19 08:06 Dose: 60 mg Furosemide (Lasix) 40 mg PO DAILY [facility] Last Admin: 03/14/19 08:06 Dose: 40 mg Guaifenesin (Mucinex) 600 mg PO BID PRN PRN Reason: Cough Last Admin: 03/14/19 08:06 Dose: 600 mg Piperacillin Sod/Tazobactam (Sod 4.5 gm/ Sodium Chloride) 100 mls @ 25 mls/hr IV Q8H [facility] Last Admin: 03/14/19 06:53 Dose: 25 mls/hr Insulin Glargine (Lantus) 60 unit SUBCUT BEDTIME [facility] Last Admin: 03/13/19 20:59 Dose: 60 units Insulin Human Lispro (Humalog) 0 unit SUBCUT QIDACANDBED [facility]; Protocol Last Admin: 03/14/19 11:32 Dose: Not Given Insulin Human Lispro (Humalog) 20 unit SUBCUT TIDAC [facility] Last Admin: 03/14/19 11:32 Dose: 20 units Levofloxacin (Levaquin) 750 mg PO Q24H [facility] Last Admin: 03/14/19 08:08 Dose: 750 mg Lisinopril (Prinivil) 20 mg PO DAILY [facility] Last Admin: 03/14/19 08:07 Dose: 20 mg Metformin HCl (Glucophage) 750 mg PO DAILY [facility] Last Admin: 03/14/19 08:07 Dose: 750 mg Metoprolol Succinate (Toprol Xl) 25 mg PO DAILY [facility] Last Admin: 03/14/19 08:07 Dose: 25 mg Ondansetron HCl (Zofran Odt) 4 mg PO Q4H PRN PRN Reason: nausea, able to take PO Potassium Chloride (Klor-Con M20) 20 meq PO DAILY [facility] Last Admin: 03/14/19 08:06 Dose: 20 meq Rosuvastatin Calcium (Crestor) 10 mg PO DAILY [facility] Last Admin: 03/14/19 08:08 Dose: 10 mg Sodium Chloride (Saline Flush) 10 ml FLUSH ASDIRECTED PRN PRN Reason: Keep Vein Open Last Admin: 03/13/19 04:33 Dose: 10 ml Discontinued Medications Albuterol/Ipratropium (Duoneb 3.0-0.5 Mg/3 Ml) 3 ml NEB ONETIME ONE Stop: 03/13/19 04:20 Last Admin: 03/13/19 04:25 Dose: 3 ml Piperacillin Sod/Tazobactam (Sod 4.5 gm/ Sodium Chloride) 100 mls @ 25 mls/hr IV ONETIME ONE Stop: 03/13/19 08:52 Last Admin: 03/13/19 06:44 Dose: 25 mls/hr Levofloxacin/Dextrose 750 mg/ (Premix) 150 mls @ 100 mls/hr IV ONETIME ONE Stop: 03/13/19 06:23 Last Admin: 03/13/19 05:13 Dose: 100 mls/hr Insulin Glargine (Lantus) 84 unit SUBCUT DAILY [facility] Insulin Glargine (Lantus) 80 unit SUBCUT BEDTIME [facility] Insulin Human Lispro (Humalog) 25 unit SUBCUT TIDAC [facility] Lisinopril (Prinivil) 20 mg PO ONETIME ONE Stop: 03/13/19 05:04 Last Admin: 03/13/19 05:15 Dose: 20 mg Metoprolol Succinate (Toprol Xl) 50 mg PO ONETIME ONE Stop: 03/13/19 05:05 Last Admin: 03/13/19 05:16 Dose: 50 mg Non-Formulary Medication (Exenatide Microspheres [Bydureon Pen]) 2 mg SUBCUT WEEKLY [facility] - Exam Quality Assessment: Supplemental Oxygen General: Alert, Oriented HEENT: Pupils Equal Neck: Supple Lungs: Normal Respiratory Effort, Decreased Breath Sounds. No: Rales Cardiovascular: Regular Rate, Regular Rhythm GI/Abdominal Exam: Normal Bowel Sounds, Soft, Non-Tender, No Distention Extremities: Non-Tender, Pedal Edema Skin: Warm, Dry, Intact - Problem List & Annotations (1) Hypoxemia SNOMED Code(s): 387350847 Code(s): R09.02 - HYPOXEMIA Status: Acute Current Visit: Yes (2) Pneumonia SNOMED Code(s): 815502278 Code(s): J18.9 - PNEUMONIA, UNSPECIFIED ORGANISM Status: Acute Current Visit: Yes Qualifiers: Pneumonia type: due to unspecified organism Laterality: left Lung location: lower lobe of lung Qualified Code(s): J18.1 - Lobar pneumonia, unspecified organism (3) Respiratory failure with hypoxia SNOMED Code(s): 98297736909565529 Code(s): J96.91 - RESPIRATORY FAILURE, UNSPECIFIED WITH HYPOXIA Status: Acute Current Visit: No Qualifiers: Chronicity: acute Qualified Code(s): J96.01 - Acute respiratory failure with hypoxia (4) Diabetes SNOMED Code(s): 05774225 Code(s): E11.9 - TYPE 2 DIABETES MELLITUS WITHOUT COMPLICATIONS Status: Chronic Current Visit: No Qualifiers: Diabetes mellitus type: type 2 Diabetes mellitus complication status: with skin complications Diabetes mellitus complication detail: with dermatitis Qualified Code(s): E11.620 - Type 2 diabetes mellitus with diabetic dermatitis (5) Morbid obesity SNOMED Code(s): 977138877 Code(s): E66.01 - MORBID (SEVERE) OBESITY DUE TO EXCESS CALORIES Status: Chronic Current Visit: No - Problem List Review Problem List Initiated/Reviewed/Updated: Yes - My Orders Last 24 Hours: My Active Orders 03/13/19 14:21 RT Incentive Spirometry [RC] ASDIRECTED 03/13/19 14:30 Piperacillin/Tazobactam [Piperacil-Tazobact] 4.5 gm Sodium Chloride 0.9% [ Normal Saline] 100 ml IV Q8H 03/13/19 14:45 RESPIRATORY PANEL Routine 03/13/19 16:03 LEGIONELLA ANTIGEN [MREF] Routine STREP PNEUMONIAE ANTIGEN [MREF] Routine 03/13/19 17:00 Insulin Lispro [HumaLOG] 20 unit SUBCUT TIDAC 03/13/19 21:00 Insulin Glarg,Human.Rec.Analog [LantUS] 60 unit SUBCUT BEDTIME busPIRone [Buspar] 30 mg PO BEDTIME 03/13/19 23:34 RT BiPAP/CPAP [RC] ASDIRECTED 03/14/19 09:00 Aspirin 81 mg PO DAILY Enoxaparin [Lovenox] 40 mg SUBCUT DAILY FLUoxetine [PROzac] 60 mg PO DAILY Furosemide [Lasix] 40 mg PO DAILY Lisinopril [Prinivil] 20 mg PO DAILY Metoprolol Succinate [Toprol XL] 25 mg PO DAILY Potassium Chloride [Klor-Con M20] 20 meq PO DAILY Rosuvastatin [Crestor] 10 mg PO DAILY levoFLOXacin [Levaquin] 750 mg PO Q24H metFORMIN [Glucophage] 750 mg PO DAILY 03/15/19 05:11 C-REACTIVE PROTEIN [CHEM] AM CBC WITH AUTO DIFF [HEME] AM CMP [COMPREHENSIVE METABOLIC PN,CMP] [CHEM] AM MAGNESIUM [CHEM] AM - Plan Plan:: Pneumonia * White count decreased to 9000. * Continue Levaquin 750 mg daily and Zosyn 4.5 mg every 6. * Incentive spirometry and albuterol/ipratropium bromide every 4 hours when necessary * Follow CBC and C-reactive protein in the morning Diabetes * From the patient's home medications appears he is very insulin resistant. * Decrease his home insulin by 20%. * Blood sugars are well-controlled * Follow fingerstick blood sugars very closely secondary to Levaquin hypoglycemic potential Hypoxemia * FiO2 to keep oxygen saturations above 90%. * ABG on admission did demonstrate slight elevation of his PCO2 at 48 and decreasing his PaO2 of 77%. * Continue home CPAP Order physical therapy and occupational therapy to keep him ambulating. VTE prophylaxis with Lovenox Anticipated late of stay 3 days.
[2019-03-14] MEDS: busPIRone 15 MG Tab PO SCH (20:55)
[2019-03-14] MEDS: Insulin Glarg,Human.Rec.Analog 100 UNIT/ML ML SUBCUT SCH (22:28)
[2019-03-15] MEDS: Piperacillin/Tazobactam 4.5 GM in Sodium Chloride 0.9% 100 ML IV SCH ×3 (06:14→22:38)
[2019-03-15] MEDS: Insulin Lispro 100 Units/ML 3 ML Vial SUBCUT SCH ×6 (08:36→18:13)
[2019-03-15] MEDS: Metoprolol Succinate 25 MG Tab.ER PO SCH (08:37)
[2019-03-15] MEDS: FLUoxetine 20 MG Cap PO SCH (08:38)
[2019-03-15] MEDS: Levofloxacin 750 MG Tab PO SCH (08:38)
[2019-03-15] MEDS: Potassium Chloride 20 MEQ Tab.ER PO SCH (08:38)
[2019-03-15] MEDS: metFORMIN 500 MG Tab PO SCH (08:39)
[2019-03-15] MEDS: Rosuvastatin 10 MG Tab PO SCH (08:39)
[2019-03-15] MEDS: Furosemide 40 MG Tab PO SCH (08:39)
[2019-03-15] MEDS: Enoxaparin 40 MG/0.4 ML Syringe SUBCUT SCH (08:45)
[2019-03-15] MEDS: Lisinopril 20 MG Tab PO SCH (08:45)
[2019-03-15] MEDS: Aspirin 81 MG Tab.Chew PO SCH (08:46)
--- NOTE | 2019-03-15 09:36 | PCM.PN ---
- General Info Date of Service: 03/15/19 Admission Dx/Problem (Free Text): Admission Diagnosis/Problem Admission Diagnosis/Problem Pneumonia Subjective Update: March 14, 2019 Patient had an uneventful night. He is afebrile and has been weaned to 4 L nasal cannula from 5. He is on 2-1/2 L at home both of the day and at night. White count decreased to 9000. March 15, 2019 Patient had an uneventful night. He is still on 4 L, but this morning on 4 L he was 99%. Nursing will wean FiO2 today. His baseline is 2.5 liters per minute. Patient was afebrile overnight. White count is 9000. He did have one episode of hypoglycemia down to 60. Patient had his insulin decreased. Functional Status: Reports: Pain Controlled - Review of Systems General: Reports: No Symptoms HEENT: Reports: No Symptoms Pulmonary: Reports: Shortness of Breath, Cough Cardiovascular: Reports: No Symptoms, Edema. Denies: Chest Pain Gastrointestinal: Reports: No Symptoms - Patient Data Vitals - Most Recent: Last Vital Signs Temp 98.4 F 03/15/19 07:17 Pulse 85 03/15/19 08:37 Resp 22 H 03/15/19 07:17 BP 116/65 03/15/19 08:45 Pulse Ox 90 L 03/15/19 03:00 Weight - Most Recent: 350 lb 12.8 oz I&O - Last 24 Hours: Intake & Output 03/14/19 03/15/19 03/15/19 22:59 06:59 14:59 Intake Total 1080 700 Output Total 200 Balance 880 700 Lab Results Last 24 Hours: Laboratory Results - last 24 hr 03/13/19 03/14/19 03/14/19 Range/Units 14:45 11:06 16:53 WBC (4.23-9.07) K/mm3 RBC (4.63-6.08) M/mm3 Hgb (13.7-17.5) gm/L Hct (40.1-51.0) % MCV (79.0-92.2) fl MCH (25.7-32.2) pg MCHC (32.2-35.5) g/dl RDW Std Deviation (35.1-43.9) fL Plt Count (163-337) K/mm3 MPV (9.4-12.3) fl Neut % (Auto) (34.0-67.9) % Lymph % (Auto) (21.8-53.1) % [place] % (Auto) (5.3-12.2) % Eos % (Auto) (0.8-7.0) Baso % (Auto) (0.1-1.2) % Neut # (Auto) (1.78-5.38) K/mm3 Lymph # (Auto) (1.32-3.57) K/mm3 [place] # (Auto) (0.30-0.82) K/mm3 Eos # (Auto) (0.04-0.54) K/mm3 Baso # (Auto) (0.01-0.08) K/mm3 Manual Slide Review Sodium (136-145) mEq/L Potassium (3.5-5.1) mEq/L Chloride (98-107) mEq/L Carbon Dioxide (21-32) mEq/L Anion Gap (5-15) BUN (7-18) mg/dL Creatinine (0.7-1.3) mg/dL Est Cr Clr Drug Dosing mL/min Estimated GFR (MDRD) (>60) mL/min BUN/Creatinine Ratio (14-18) Glucose (80-115) mg/dL POC Glucose 111 91 (80-115) mg/dL Calcium (8.5-10.1) mg/dL Magnesium (1.8-2.4) mg/dl Total Bilirubin (0.2-1.0) mg/dL AST (15-37) U/L ALT (16-63) U/L Alkaline Phosphatase (46-116) U/L C-Reactive Protein (<1.0) mg/dL Total Protein (6.4-8.2) g/dl Albumin (3.4-5.0) g/dl Globulin gm/dL Albumin/Globulin Ratio (1-2) Adenovirus (PCR) Not detected (Not Detected) B. pertussis DNA (PCR) Not detected (Not Detected) B.parapertussis DNA PCR Not detected (Not Detected) C. pneumoniae DNA (PCR) Not detected (Not Detected) Coronavirus (PCR) Not detected (Not Detected) Human Metapneumovir PCR Not detected (Not Detected) Influenza A (RT-PCR) Not detected (Not Detected) Influenza B (RT-PCR) Not detected (Not Detected) M. pneumoniae (PCR) Not detected (Not Detected) Parainfluen 1,2,3,4 PCR Not detected (Not Detected) RSV (PCR) Not detected (Not Detected) Entero/Rhino (PCR) Not detected (Not Detected) 03/14/19 03/14/19 03/14/19 Range/Units 20:50 21:19 22:27 WBC (4.23-9.07) K/mm3 RBC (4.63-6.08) M/mm3 Hgb (13.7-17.5) gm/L Hct (40.1-51.0) % MCV (79.0-92.2) fl MCH (25.7-32.2) pg MCHC (32.2-35.5) g/dl RDW Std Deviation (35.1-43.9) fL Plt Count (163-337) K/mm3 MPV (9.4-12.3) fl Neut % (Auto) (34.0-67.9) % Lymph % (Auto) (21.8-53.1) % [place] % (Auto) (5.3-12.2) % Eos % (Auto) (0.8-7.0) Baso % (Auto) (0.1-1.2) % Neut # (Auto) (1.78-5.38) K/mm3 Lymph # (Auto) (1.32-3.57) K/mm3 [place] # (Auto) (0.30-0.82) K/mm3 Eos # (Auto) (0.04-0.54) K/mm3 Baso # (Auto) (0.01-0.08) K/mm3 Manual Slide Review Sodium (136-145) mEq/L Potassium (3.5-5.1) mEq/L Chloride (98-107) mEq/L Carbon Dioxide (21-32) mEq/L Anion Gap (5-15) BUN (7-18) mg/dL Creatinine (0.7-1.3) mg/dL Est Cr Clr Drug Dosing mL/min Estimated GFR (MDRD) (>60) mL/min BUN/Creatinine Ratio (14-18) Glucose (80-115) mg/dL POC Glucose 66 L 81 133 H (80-115) mg/dL Calcium (8.5-10.1) mg/dL Magnesium (1.8-2.4) mg/dl Total Bilirubin (0.2-1.0) mg/dL AST (15-37) U/L ALT (16-63) U/L Alkaline Phosphatase (46-116) U/L C-Reactive Protein (<1.0) mg/dL Total Protein (6.4-8.2) g/dl Albumin (3.4-5.0) g/dl Globulin gm/dL Albumin/Globulin Ratio (1-2) Adenovirus (PCR) (Not Detected) B. pertussis DNA (PCR) (Not Detected) B.parapertussis DNA PCR (Not Detected) C. pneumoniae DNA (PCR) (Not Detected) Coronavirus (PCR) (Not Detected) Human Metapneumovir PCR (Not Detected) Influenza A (RT-PCR) (Not Detected) Influenza B (RT-PCR) (Not Detected) M. pneumoniae (PCR) (Not Detected) Parainfluen 1,2,3,4 PCR (Not Detected) RSV (PCR) (Not Detected) Entero/Rhino (PCR) (Not Detected) 03/15/19 03/15/19 03/15/19 Range/Units 05:00 05:00 06:17 WBC 8.96 (4.23-9.07) K/mm3 RBC 4.86 (4.63-6.08) M/mm3 Hgb 13.8 (13.7-17.5) gm/L Hct 44.1 (40.1-51.0) % MCV 90.7 (79.0-92.2) fl MCH 28.4 (25.7-32.2) pg MCHC 31.3 L (32.2-35.5) g/dl RDW Std Deviation 49.9 H (35.1-43.9) fL Plt Count 228 (163-337) K/mm3 MPV 11.3 (9.4-12.3) fl Neut % (Auto) 65.7 (34.0-67.9) % Lymph % (Auto) 15.8 L (21.8-53.1) % [place] % (Auto) 16.1 H (5.3-12.2) % Eos % (Auto) 1.9 (0.8-7.0) Baso % (Auto) 0.2 (0.1-1.2) % Neut # (Auto) 5.88 H (1.78-5.38) K/mm3 Lymph # (Auto) 1.42 (1.32-3.57) K/mm3 [place] # (Auto) 1.44 H (0.30-0.82) K/mm3 Eos # (Auto) 0.17 (0.04-0.54) K/mm3 Baso # (Auto) 0.02 (0.01-0.08) K/mm3 Manual Slide Review Normal smear Sodium 141 (136-145) mEq/L Potassium 4.2 (3.5-5.1) mEq/L Chloride 103 (98-107) mEq/L Carbon Dioxide 28 (21-32) mEq/L Anion Gap 14.2 (5-15) BUN 27 H (7-18) mg/dL Creatinine 0.8 (0.7-1.3) mg/dL Est Cr Clr Drug Dosing 97.59 mL/min Estimated GFR (MDRD) > 60 (>60) mL/min BUN/Creatinine Ratio 33.8 H (14-18) Glucose 97 (80-115) mg/dL POC Glucose 133 H (80-115) mg/dL Calcium 9.1 (8.5-10.1) mg/dL Magnesium 2.0 (1.8-2.4) mg/dl Total Bilirubin 0.5 (0.2-1.0) mg/dL AST 15 (15-37) U/L ALT 21 (16-63) U/L Alkaline Phosphatase 87 (46-116) U/L C-Reactive Protein 11.1 H* (<1.0) mg/dL Total Protein 6.8 (6.4-8.2) g/dl Albumin 2.6 L (3.4-5.0) g/dl Globulin 4.2 gm/dL Albumin/Globulin Ratio 0.6 L (1-2) Adenovirus (PCR) (Not Detected) B. pertussis DNA (PCR) (Not Detected) B.parapertussis DNA PCR (Not Detected) C. pneumoniae DNA (PCR) (Not Detected) Coronavirus (PCR) (Not Detected) Human Metapneumovir PCR (Not Detected) Influenza A (RT-PCR) (Not Detected) Influenza B (RT-PCR) (Not Detected) M. pneumoniae (PCR) (Not Detected) Parainfluen 1,2,3,4 PCR (Not Detected) RSV (PCR) (Not Detected) Entero/Rhino (PCR) (Not Detected) Kyle Results Last 24 Hours: Microbiology 03/13/19 05:10 Aerobic Blood Culture - Preliminary Blood NO GROWTH AFTER 2 DAYS Anaerobic Blood Culture - Preliminary NO GROWTH AFTER 2 DAYS 03/13/19 04:25 Aerobic Blood Culture - Preliminary Blood NO GROWTH AFTER 2 DAYS Anaerobic Blood Culture - Preliminary NO GROWTH AFTER 2 DAYS 03/13/19 05:50 Gram Stain - Final Sputum - Expectorated Sputum Culture - Preliminary Med Orders - Current: Current Medications Acetaminophen (Tylenol) 650 mg PO Q4H PRN PRN Reason: Pain (Mild 1-3)/fever Albuterol/Ipratropium (Duoneb 3.0-0.5 Mg/3 Ml) 3 ml NEB Q4H PRN PRN Reason: Shortness Of Breath/wheezing Last Admin: 03/13/19 14:15 Dose: 3 ml Aspirin (Aspirin) 81 mg PO DAILY [facility] Last Admin: 03/15/19 08:46 Dose: 81 mg Buspirone HCl (Buspar) 30 mg PO BEDTIME [facility] Last Admin: 03/14/19 20:55 Dose: 30 mg Enoxaparin Sodium (Lovenox) 40 mg SUBCUT DAILY [facility] Last Admin: 03/15/19 08:45 Dose: 40 mg Fluoxetine HCl (Prozac) 60 mg PO DAILY [facility] Last Admin: 03/15/19 08:38 Dose: 60 mg Furosemide (Lasix) 40 mg PO DAILY [facility] Last Admin: 03/15/19 08:39 Dose: 40 mg Guaifenesin (Mucinex) 600 mg PO BID PRN PRN Reason: Cough Last Admin: 03/14/19 08:06 Dose: 600 mg Piperacillin Sod/Tazobactam (Sod 4.5 gm/ Sodium Chloride) 100 mls @ 25 mls/hr IV Q8H [facility] Last Admin: 03/15/19 06:14 Dose: 25 mls/hr Insulin Glargine (Lantus) 50 unit SUBCUT BEDTIME [facility] Last Admin: 03/14/19 22:28 Dose: 50 units Insulin Human Lispro (Humalog) 15 unit SUBCUT TIDAC [facility] Last Admin: 03/15/19 08:36 Dose: 15 units Insulin Human Lispro (Humalog) 0 unit SUBCUT QIDACANDBED [facility]; Protocol Last Admin: 03/15/19 08:37 Dose: Not Given Levofloxacin (Levaquin) 750 mg PO Q24H [facility] Last Admin: 03/15/19 08:38 Dose: 750 mg Lisinopril (Prinivil) 20 mg PO DAILY [facility] Last Admin: 03/15/19 08:45 Dose: 20 mg Metformin HCl (Glucophage) 750 mg PO DAILY [facility] Last Admin: 03/15/19 08:39 Dose: 750 mg Metoprolol Succinate (Toprol Xl) 25 mg PO DAILY [facility] Last Admin: 03/15/19 08:37 Dose: 25 mg Ondansetron HCl (Zofran Odt) 4 mg PO Q4H PRN PRN Reason: nausea, able to take PO Potassium Chloride (Klor-Con M20) 20 meq PO DAILY [facility] Last Admin: 03/15/19 08:38 Dose: 20 meq Rosuvastatin Calcium (Crestor) 10 mg PO DAILY [facility] Last Admin: 03/15/19 08:39 Dose: 10 mg Sodium Chloride (Saline Flush) 10 ml FLUSH ASDIRECTED PRN PRN Reason: Keep Vein Open Last Admin: 03/13/19 04:33 Dose: 10 ml Discontinued Medications Albuterol/Ipratropium (Duoneb 3.0-0.5 Mg/3 Ml) 3 ml NEB ONETIME ONE Stop: 03/13/19 04:20 Last Admin: 03/13/19 04:25 Dose: 3 ml Piperacillin Sod/Tazobactam (Sod 4.5 gm/ Sodium Chloride) 100 mls @ 25 mls/hr IV ONETIME ONE Stop: 03/13/19 08:52 Last Admin: 03/13/19 06:44 Dose: 25 mls/hr Levofloxacin/Dextrose 750 mg/ (Premix) 150 mls @ 100 mls/hr IV ONETIME ONE Stop: 03/13/19 06:23 Last Admin: 03/13/19 05:13 Dose: 100 mls/hr Insulin Glargine (Lantus) 84 unit SUBCUT DAILY [facility] Insulin Glargine (Lantus) 80 unit SUBCUT BEDTIME [facility] Insulin Glargine (Lantus) 60 unit SUBCUT BEDTIME [facility] Last Admin: 03/13/19 20:59 Dose: 60 units Insulin Human Lispro (Humalog) 0 unit SUBCUT QIDACANDBED [facility]; Protocol Last Admin: 03/14/19 17:09 Dose: Not Given Insulin Human Lispro (Humalog) 25 unit SUBCUT TIDAC [facility] Insulin Human Lispro (Humalog) 20 unit SUBCUT TIDAC [facility] Last Admin: 03/14/19 17:09 Dose: Not Given Lisinopril (Prinivil) 20 mg PO ONETIME ONE Stop: 03/13/19 05:04 Last Admin: 03/13/19 05:15 Dose: 20 mg Metoprolol Succinate (Toprol Xl) 50 mg PO ONETIME ONE Stop: 03/13/19 05:05 Last Admin: 03/13/19 05:16 Dose: 50 mg Non-Formulary Medication (Exenatide Microspheres [Bydureon Pen]) 2 mg SUBCUT WEEKLY [facility] - Exam Quality Assessment: Supplemental Oxygen General: Alert, Oriented HEENT: Pupils Equal, Pupils Reactive Neck: Supple Lungs: Normal Respiratory Effort, Decreased Breath Sounds Cardiovascular: Regular Rate, Regular Rhythm GI/Abdominal Exam: Normal Bowel Sounds, Soft, Non-Tender, No Distention Extremities: Pedal Edema Skin: Warm, Dry, Intact Neurological: No New Focal Deficit Psy/Mental Status: Alert, Normal Affect, Normal Mood - Problem List & Annotations (1) Hypoxemia SNOMED Code(s): 248796957 Code(s): R09.02 - HYPOXEMIA Status: Acute Current Visit: Yes (2) Pneumonia SNOMED Code(s): 575108324 Code(s): J18.9 - PNEUMONIA, UNSPECIFIED ORGANISM Status: Acute Current Visit: Yes Qualifiers: Pneumonia type: due to unspecified organism Laterality: left Lung location: lower lobe of lung Qualified Code(s): J18.1 - Lobar pneumonia, unspecified organism (3) Respiratory failure with hypoxia SNOMED Code(s): 52580369320053057 Code(s): J96.91 - RESPIRATORY FAILURE, UNSPECIFIED WITH HYPOXIA Status: Acute Current Visit: No Qualifiers: Chronicity: acute Qualified Code(s): J96.01 - Acute respiratory failure with hypoxia (4) Diabetes SNOMED Code(s): 24384856 Code(s): E11.9 - TYPE 2 DIABETES MELLITUS WITHOUT COMPLICATIONS Status: Chronic Current Visit: No Qualifiers: Diabetes mellitus type: type 2 Diabetes mellitus complication status: with skin complications Diabetes mellitus complication detail: with dermatitis Qualified Code(s): E11.620 - Type 2 diabetes mellitus with diabetic dermatitis (5) Morbid obesity SNOMED Code(s): 120020936 Code(s): E66.01 - MORBID (SEVERE) OBESITY DUE TO EXCESS CALORIES Status: Chronic Current Visit: No - Problem List Review Problem List Initiated/Reviewed/Updated: Yes - My Orders Last 24 Hours: My Active Orders 03/14/19 09:00 Aspirin 81 mg PO DAILY Enoxaparin [Lovenox] 40 mg SUBCUT DAILY FLUoxetine [PROzac] 60 mg PO DAILY Furosemide [Lasix] 40 mg PO DAILY Lisinopril [Prinivil] 20 mg PO DAILY Metoprolol Succinate [Toprol XL] 25 mg PO DAILY Potassium Chloride [Klor-Con M20] 20 meq PO DAILY Rosuvastatin [Crestor] 10 mg PO DAILY levoFLOXacin [Levaquin] 750 mg PO Q24H metFORMIN [Glucophage] 750 mg PO DAILY 03/14/19 21:00 Insulin Glarg,Human.Rec.Analog [LantUS] 50 unit SUBCUT BEDTIME 03/14/19 22:00 Insulin Lispro [HumaLOG] See Protocol SUBCUT QIDACANDBED 03/15/19 07:00 Insulin Lispro [HumaLOG] 15 unit SUBCUT TIDAC - Plan Plan:: Pneumonia * White count decreased to 9000. * Continue Levaquin 750 mg daily and Zosyn 4.5 mg every 6. * Incentive spirometry and albuterol/ipratropium bromide every 4 hours when necessary * Follow CBC and C-reactive protein in the morning Diabetes * From the patient's home medications appears he is very insulin resistant. * One episode of hypoglycemia last night * Decrease both basal and prandial insulin * Follow fingerstick blood sugars very closely secondary to Levaquin hypoglycemic potential Hypoxemia * FiO2 to keep oxygen saturations above 90%. * Baseline FiO2 is 2.5 L * ABG on admission did demonstrate slight elevation of his PCO2 at 48 and decreasing his PaO2 of 77%. * Continue home CPAP Order physical therapy and occupational therapy to keep him ambulating. VTE prophylaxis with Lovenox Anticipated late of stay 3 days.
[2019-03-15] MEDS: Albuterol/Ipratropium 3.0-0.5 MG/3 ML Neb Soln NEB PRN (16:21)
[2019-03-15] MEDS: Sodium Chloride 0.9% 100 ML ONE ×2 (18:13→18:15)
[2019-03-15] MEDS: Insulin Glarg,Human.Rec.Analog 100 UNIT/ML ML SUBCUT SCH (21:30)
[2019-03-15] MEDS: busPIRone 15 MG Tab PO SCH (21:31)
[2019-03-15] MEDS: guaiFENesin 600 MG Tab.ER PO PRN (21:31)
[2019-03-16] MEDS: Insulin Lispro 100 Units/ML 3 ML Vial SUBCUT SCH ×8 (00:06→21:33)
[2019-03-16 07:31] LABS: HEMOGLOBIN A1C 7.3 % (4.50-6.20)
[2019-03-16] MEDS: Rosuvastatin 10 MG Tab PO SCH (08:44)
[2019-03-16] MEDS: Furosemide 40 MG Tab PO SCH (08:48)
[2019-03-16] MEDS: Potassium Chloride 20 MEQ Tab.ER PO SCH (08:49)
[2019-03-16] MEDS: Aspirin 81 MG Tab.Chew PO SCH (08:50)
[2019-03-16] MEDS: FLUoxetine 20 MG Cap PO SCH (08:51)
[2019-03-16] MEDS: Levofloxacin 750 MG Tab PO SCH (08:51)
[2019-03-16] MEDS: metFORMIN 500 MG Tab PO SCH (08:51)
[2019-03-16] MEDS: Enoxaparin 40 MG/0.4 ML Syringe SUBCUT SCH (08:52)
[2019-03-16] MEDS: Metoprolol Succinate 25 MG Tab.ER PO SCH (08:56)
[2019-03-16] MEDS: Lisinopril 20 MG Tab PO SCH (08:57)
[2019-03-16] MEDS: Piperacillin/Tazobactam 4.5 GM in Sodium Chloride 0.9% 100 ML IV SCH (09:27)
--- NOTE | 2019-03-16 12:44 | PCM.PN ---
- General Info Date of Service: 03/16/19 Admission Dx/Problem (Free Text): Admission Diagnosis/Problem Admission Diagnosis/Problem Pneumonia Subjective Update: March 14, 2019 Patient had an uneventful night. He is afebrile and has been weaned to 4 L nasal cannula from 5. He is on 2-1/2 L at home both of the day and at night. White count decreased to 9000. March 15, 2019 Patient had an uneventful night. He is still on 4 L, but this morning on 4 L he was 99%. Nursing will wean FiO2 today. His baseline is 2.5 liters per minute. Patient was afebrile overnight. White count is 9000. He did have one episode of hypoglycemia down to 60. Patient had his insulin decreased. Functional Status: Reports: Pain Controlled - Review of Systems General: Reports: No Symptoms HEENT: Reports: No Symptoms Pulmonary: Reports: Shortness of Breath, Cough Cardiovascular: Reports: No Symptoms Gastrointestinal: Reports: No Symptoms Neurological: Reports: No Symptoms - Patient Data Vitals - Most Recent: Last Vital Signs Temp 98.8 F 03/16/19 08:49 Pulse 88 03/16/19 08:56 Resp 18 03/16/19 08:49 BP 116/67 03/16/19 08:57 Pulse Ox 92 L 03/16/19 08:49 Weight - Most Recent: 348 lb 14.4 oz I&O - Last 24 Hours: Intake & Output 03/15/19 03/16/19 03/16/19 22:59 06:59 14:59 Intake Total 1500 1117 180 Output Total 600 Balance 1500 517 180 Lab Results Last 24 Hours: Laboratory Results - last 24 hr 03/15/19 03/15/19 03/16/19 Range/Units 17:00 21:18 05:25 WBC 7.35 (4.23-9.07) K/mm3 RBC 4.99 (4.63-6.08) M/mm3 Hgb 14.2 (13.7-17.5) gm/L Hct 44.7 (40.1-51.0) % MCV 89.6 (79.0-92.2) fl MCH 28.5 (25.7-32.2) pg MCHC 31.8 L (32.2-35.5) g/dl RDW Std Deviation 49.0 H (35.1-43.9) fL Plt Count 233 (163-337) K/mm3 MPV 11.3 (9.4-12.3) fl Neut % (Auto) 66.3 (34.0-67.9) % Lymph % (Auto) 18.2 L (21.8-53.1) % [place] % (Auto) 13.2 H (5.3-12.2) % Eos % (Auto) 1.9 (0.8-7.0) Baso % (Auto) 0.4 (0.1-1.2) % Neut # (Auto) 4.87 (1.78-5.38) K/mm3 Lymph # (Auto) 1.34 (1.32-3.57) K/mm3 [place] # (Auto) 0.97 H (0.30-0.82) K/mm3 Eos # (Auto) 0.14 (0.04-0.54) K/mm3 Baso # (Auto) 0.03 (0.01-0.08) K/mm3 Sodium (136-145) mEq/L Potassium (3.5-5.1) mEq/L Chloride (98-107) mEq/L Carbon Dioxide (21-32) mEq/L Anion Gap (5-15) BUN (7-18) mg/dL Creatinine (0.7-1.3) mg/dL Est Cr Clr Drug Dosing mL/min Estimated GFR (MDRD) (>60) mL/min BUN/Creatinine Ratio (14-18) Glucose (80-115) mg/dL POC Glucose 131 H 157 H (80-115) mg/dL Hemoglobin A1c (4.50-6.20) % Calcium (8.5-10.1) mg/dL Magnesium (1.8-2.4) mg/dl Total Bilirubin (0.2-1.0) mg/dL AST (15-37) U/L ALT (16-63) U/L Alkaline Phosphatase (46-116) U/L C-Reactive Protein (<1.0) mg/dL Total Protein (6.4-8.2) g/dl Albumin (3.4-5.0) g/dl Globulin gm/dL Albumin/Globulin Ratio (1-2) Triglycerides (<150) mg/dL Cholesterol (<200) mg/dL LDL Cholesterol Direct (<100) mg/dL HDL Cholesterol (40-59) mg/dL 03/16/19 03/16/19 03/16/19 Range/Units 05:25 05:25 06:30 WBC (4.23-9.07) K/mm3 RBC (4.63-6.08) M/mm3 Hgb (13.7-17.5) gm/L Hct (40.1-51.0) % MCV (79.0-92.2) fl MCH (25.7-32.2) pg MCHC (32.2-35.5) g/dl RDW Std Deviation (35.1-43.9) fL Plt Count (163-337) K/mm3 MPV (9.4-12.3) fl Neut % (Auto) (34.0-67.9) % Lymph % (Auto) (21.8-53.1) % [place] % (Auto) (5.3-12.2) % Eos % (Auto) (0.8-7.0) Baso % (Auto) (0.1-1.2) % Neut # (Auto) (1.78-5.38) K/mm3 Lymph # (Auto) (1.32-3.57) K/mm3 [place] # (Auto) (0.30-0.82) K/mm3 Eos # (Auto) (0.04-0.54) K/mm3 Baso # (Auto) (0.01-0.08) K/mm3 Sodium 142 (136-145) mEq/L Potassium 4.2 (3.5-5.1) mEq/L Chloride 105 (98-107) mEq/L Carbon Dioxide 29 (21-32) mEq/L Anion Gap 12.2 (5-15) BUN 24 H (7-18) mg/dL Creatinine 0.8 (0.7-1.3) mg/dL Est Cr Clr Drug Dosing 97.59 mL/min Estimated GFR (MDRD) > 60 (>60) mL/min BUN/Creatinine Ratio 30.0 H (14-18) Glucose 117 H (80-115) mg/dL POC Glucose 121 H (80-115) mg/dL Hemoglobin A1c 7.30 H (4.50-6.20) % Calcium 9.0 (8.5-10.1) mg/dL Magnesium 1.8 (1.8-2.4) mg/dl Total Bilirubin 0.4 (0.2-1.0) mg/dL AST 14 L (15-37) U/L ALT 20 (16-63) U/L Alkaline Phosphatase 81 (46-116) U/L C-Reactive Protein 5.5 H* (<1.0) mg/dL Total Protein 6.6 (6.4-8.2) g/dl Albumin 2.6 L (3.4-5.0) g/dl Globulin 4.0 gm/dL Albumin/Globulin Ratio 0.7 L (1-2) Triglycerides 66 (<150) mg/dL Cholesterol 129 (<200) mg/dL LDL Cholesterol Direct 81 (<100) mg/dL HDL Cholesterol 35.0 L (40-59) mg/dL 03/16/19 Range/Units 11:18 WBC (4.23-9.07) K/mm3 RBC (4.63-6.08) M/mm3 Hgb (13.7-17.5) gm/L Hct (40.1-51.0) % MCV (79.0-92.2) fl MCH (25.7-32.2) pg MCHC (32.2-35.5) g/dl RDW Std Deviation (35.1-43.9) fL Plt Count (163-337) K/mm3 MPV (9.4-12.3) fl Neut % (Auto) (34.0-67.9) % Lymph % (Auto) (21.8-53.1) % [place] % (Auto) (5.3-12.2) % Eos % (Auto) (0.8-7.0) Baso % (Auto) (0.1-1.2) % Neut # (Auto) (1.78-5.38) K/mm3 Lymph # (Auto) (1.32-3.57) K/mm3 [place] # (Auto) (0.30-0.82) K/mm3 Eos # (Auto) (0.04-0.54) K/mm3 Baso # (Auto) (0.01-0.08) K/mm3 Sodium (136-145) mEq/L Potassium (3.5-5.1) mEq/L Chloride (98-107) mEq/L Carbon Dioxide (21-32) mEq/L Anion Gap (5-15) BUN (7-18) mg/dL Creatinine (0.7-1.3) mg/dL Est Cr Clr Drug Dosing mL/min Estimated GFR (MDRD) (>60) mL/min BUN/Creatinine Ratio (14-18) Glucose (80-115) mg/dL POC Glucose 118 H (80-115) mg/dL Hemoglobin A1c (4.50-6.20) % Calcium (8.5-10.1) mg/dL Magnesium (1.8-2.4) mg/dl Total Bilirubin (0.2-1.0) mg/dL AST (15-37) U/L ALT (16-63) U/L Alkaline Phosphatase (46-116) U/L C-Reactive Protein (<1.0) mg/dL Total Protein (6.4-8.2) g/dl Albumin (3.4-5.0) g/dl Globulin gm/dL Albumin/Globulin Ratio (1-2) Triglycerides (<150) mg/dL Cholesterol (<200) mg/dL LDL Cholesterol Direct (<100) mg/dL HDL Cholesterol (40-59) mg/dL Kyle Results Last 24 Hours: Microbiology 03/13/19 05:50 Gram Stain - Final Sputum - Expectorated Sputum Culture - Final Haemophilus Influenzae Blessing Albicans 03/13/19 05:10 Aerobic Blood Culture - Preliminary Blood NO GROWTH AFTER 3 DAYS Anaerobic Blood Culture - Preliminary NO GROWTH AFTER 3 DAYS 03/13/19 04:25 Aerobic Blood Culture - Preliminary Blood NO GROWTH AFTER 3 DAYS Anaerobic Blood Culture - Preliminary NO GROWTH AFTER 3 DAYS Med Orders - Current: Current Medications Acetaminophen (Tylenol) 650 mg PO Q4H PRN PRN Reason: Pain (Mild 1-3)/fever Albuterol/Ipratropium (Duoneb 3.0-0.5 Mg/3 Ml) 3 ml NEB Q4H PRN PRN Reason: Shortness Of Breath/wheezing Last Admin: 03/15/19 16:21 Dose: 3 ml Aspirin (Aspirin) 81 mg PO DAILY [facility] Last Admin: 03/16/19 08:50 Dose: 81 mg Buspirone HCl (Buspar) 30 mg PO BEDTIME [facility] Last Admin: 03/15/19 21:31 Dose: 30 mg Enoxaparin Sodium (Lovenox) 40 mg SUBCUT DAILY [facility] Last Admin: 03/16/19 08:52 Dose: 40 mg Fluoxetine HCl (Prozac) 60 mg PO DAILY [facility] Last Admin: 03/16/19 08:51 Dose: 60 mg Furosemide (Lasix) 40 mg PO DAILY [facility] Last Admin: 03/16/19 08:48 Dose: 40 mg Guaifenesin (Mucinex) 600 mg PO BID PRN PRN Reason: Cough Last Admin: 03/15/19 21:31 Dose: 600 mg Insulin Glargine (Lantus) 50 unit SUBCUT BEDTIME [facility] Last Admin: 03/15/19 21:30 Dose: 50 units Insulin Human Lispro (Humalog) 15 unit SUBCUT TIDAC [facility] Last Admin: 03/16/19 12:22 Dose: 15 units Insulin Human Lispro (Humalog) 0 unit SUBCUT QIDACANDBED [facility]; Protocol Last Admin: 03/16/19 11:24 Dose: Not Given Levofloxacin (Levaquin) 750 mg PO Q24H [facility] Stop: 03/17/19 11:00 Last Admin: 03/16/19 08:51 Dose: 750 mg Lisinopril (Prinivil) 20 mg PO DAILY [facility] Last Admin: 03/16/19 08:57 Dose: 20 mg Metformin HCl (Glucophage) 750 mg PO DAILY [facility] Last Admin: 03/16/19 08:51 Dose: 750 mg Metoprolol Succinate (Toprol Xl) 25 mg PO DAILY [facility] Last Admin: 03/16/19 08:56 Dose: 25 mg Nystatin (Nystatin Oral Syringe) 500,000 unit PO QID [facility] Ondansetron HCl (Zofran Odt) 4 mg PO Q4H PRN PRN Reason: nausea, able to take PO Potassium Chloride (Klor-Con M20) 20 meq PO DAILY [facility] Last Admin: 03/16/19 08:49 Dose: 20 meq Rosuvastatin Calcium (Crestor) 10 mg PO DAILY [facility] Last Admin: 03/16/19 08:44 Dose: 10 mg Sodium Chloride (Saline Flush) 10 ml FLUSH ASDIRECTED PRN PRN Reason: Keep Vein Open Last Admin: 03/13/19 04:33 Dose: 10 ml Discontinued Medications Albuterol/Ipratropium (Duoneb 3.0-0.5 Mg/3 Ml) 3 ml NEB ONETIME ONE Stop: 03/13/19 04:20 Last Admin: 03/13/19 04:25 Dose: 3 ml Piperacillin Sod/Tazobactam (Sod 4.5 gm/ Sodium Chloride) 100 mls @ 25 mls/hr IV ONETIME ONE Stop: 03/13/19 08:52 Last Admin: 03/13/19 06:44 Dose: 25 mls/hr Levofloxacin/Dextrose 750 mg/ (Premix) 150 mls @ 100 mls/hr IV ONETIME ONE Stop: 03/13/19 06:23 Last Admin: 03/13/19 05:13 Dose: 100 mls/hr Piperacillin Sod/Tazobactam (Sod 4.5 gm/ Sodium Chloride) 100 mls @ 25 mls/hr IV Q8H [facility] Last Admin: 03/16/19 09:27 Dose: Not Given Sodium Chloride (Normal Saline) Confirm Administered Dose 100 mls @ as directed .ROUTE .STK-MED ONE Stop: 03/15/19 15:40 Last Admin: 03/15/19 18:15 Dose: Not Given Insulin Glargine (Lantus) 84 unit SUBCUT DAILY [facility] Insulin Glargine (Lantus) 80 unit SUBCUT BEDTIME [facility] Insulin Glargine (Lantus) 60 unit SUBCUT BEDTIME [facility] Last Admin: 03/13/19 20:59 Dose: 60 units Insulin Human Lispro (Humalog) 0 unit SUBCUT QIDACANDBED [facility]; Protocol Last Admin: 03/14/19 17:09 Dose: Not Given Insulin Human Lispro (Humalog) 25 unit SUBCUT TIDAC [facility] Insulin Human Lispro (Humalog) 20 unit SUBCUT TIDAC [facility] Last Admin: 03/14/19 17:09 Dose: Not Given Lisinopril (Prinivil) 20 mg PO ONETIME ONE Stop: 03/13/19 05:04 Last Admin: 03/13/19 05:15 Dose: 20 mg Metoprolol Succinate (Toprol Xl) 50 mg PO ONETIME ONE Stop: 03/13/19 05:05 Last Admin: 03/13/19 05:16 Dose: 50 mg Non-Formulary Medication (Exenatide Microspheres [Bydureon Pen]) 2 mg SUBCUT WEEKLY [facility] - Exam Quality Assessment: Supplemental Oxygen General: Alert, Oriented HEENT: Pupils Equal, Pupils Reactive Lungs: Clear to Auscultation, Normal Respiratory Effort Cardiovascular: Regular Rate, Regular Rhythm GI/Abdominal Exam: Normal Bowel Sounds, Soft, Non-Tender, No Organomegaly, No Mass Extremities: Normal Inspection, Pedal Edema Skin: Warm, Dry, Intact - Problem List & Annotations (1) Hypoxemia SNOMED Code(s): 525839690 Code(s): R09.02 - HYPOXEMIA Status: Acute Current Visit: Yes (2) Pneumonia SNOMED Code(s): 467907254 Code(s): J18.9 - PNEUMONIA, UNSPECIFIED ORGANISM Status: Acute Current Visit: Yes Qualifiers: Pneumonia type: due to Haemophilus influenzae Laterality: left Lung location: lower lobe of lung Qualified Code(s): J14 - Pneumonia due to Hemophilus influenzae (3) Respiratory failure with hypoxia SNOMED Code(s): 48441453260819738 Code(s): J96.91 - RESPIRATORY FAILURE, UNSPECIFIED WITH HYPOXIA Status: Acute Current Visit: No Qualifiers: Chronicity: acute Qualified Code(s): J96.01 - Acute respiratory failure with hypoxia (4) Diabetes SNOMED Code(s): 86950287 Code(s): E11.9 - TYPE 2 DIABETES MELLITUS WITHOUT COMPLICATIONS Status: Chronic Current Visit: No Qualifiers: Diabetes mellitus type: type 2 Diabetes mellitus complication status: with skin complications Diabetes mellitus complication detail: with dermatitis Qualified Code(s): E11.620 - Type 2 diabetes mellitus with diabetic dermatitis (5) Morbid obesity SNOMED Code(s): 637170097 Code(s): E66.01 - MORBID (SEVERE) OBESITY DUE TO EXCESS CALORIES Status: Chronic Current Visit: No - Problem List Review Problem List Initiated/Reviewed/Updated: Yes - My Orders Last 24 Hours: My Active Orders 03/16/19 13:00 Nystatin [Nystatin Oral Syringe] 500,000 unit PO QID - Plan Plan:: Pneumonia due to Haemophilus * sputum culture came back growing Haemophilus influenza sensitive to Levaquin. * Sputum also demonstrated Blessing albicans * White count decreased to 7000 * Continue Levaquin 750 mg daily and stop Zosyn . * Incentive spirometry and albuterol/ipratropium bromide every 4 hours when necessary * nystatin swish and swallow for oral yeast. Diabetes * From the patient's home medications appears he is very insulin resistant. * No episodes of hypoglycemia over last 24 hours * Decrease both basal and prandial insulin yesterday * Follow fingerstick blood sugars very closely secondary to Levaquin hypoglycemic potential Hypoxemia * FiO2 to keep oxygen saturations above 90%. * Baseline FiO2 is 2.5 L * ABG on admission did demonstrate slight elevation of his PCO2 at 48 and decreasing his PaO2 of 77%. * Continue home CPAP Order physical therapy and occupational therapy to keep him ambulating.. Length of stay greater than 96 hours. This is 2/2 slow resolution of his hypoxemia and now due to the residential not having oxygen or a bariatric walker. They should have both on Tuesday, March 19, 2019.
[2019-03-16] MEDS: Nystatin Susp 100,000 Unit/ML 5 ML Oral Syringe PO SCH ×3 (13:25→21:33)
[2019-03-16] MEDS: busPIRone 15 MG Tab PO SCH (21:31)
[2019-03-16] MEDS: Insulin Glarg,Human.Rec.Analog 100 UNIT/ML ML SUBCUT SCH (21:32)
[2019-03-17] MEDS: Metoprolol Succinate 25 MG Tab.ER PO SCH (08:10)
[2019-03-17] MEDS: Levofloxacin 750 MG Tab PO SCH (08:10)
[2019-03-17] MEDS: Rosuvastatin 10 MG Tab PO SCH (08:10)
[2019-03-17] MEDS: Furosemide 40 MG Tab PO SCH (08:10)
[2019-03-17] MEDS: Lisinopril 20 MG Tab PO SCH (08:10)
[2019-03-17] MEDS: FLUoxetine 20 MG Cap PO SCH (08:10)
[2019-03-17] MEDS: metFORMIN 500 MG Tab PO SCH (08:11)
[2019-03-17] MEDS: Insulin Lispro 100 Units/ML 3 ML Vial SUBCUT SCH ×7 (08:11→21:10)
[2019-03-17] MEDS: Aspirin 81 MG Tab.Chew PO SCH (08:11)
[2019-03-17] MEDS: Nystatin Susp 100,000 Unit/ML 5 ML Oral Syringe PO SCH ×4 (08:11→21:09)
[2019-03-17] MEDS: Potassium Chloride 20 MEQ Tab.ER PO SCH (08:11)
[2019-03-17] MEDS: Enoxaparin 40 MG/0.4 ML Syringe SUBCUT SCH (08:12)
--- NOTE | 2019-03-17 10:00 | PCM.PN ---
- General Info Date of Service: 03/17/19 Admission Dx/Problem (Free Text): Admission Diagnosis/Problem Admission Diagnosis/Problem Pneumonia Subjective Update: March 14, 2019 Patient had an uneventful night. He is afebrile and has been weaned to 4 L nasal cannula from 5. He is on 2-1/2 L at home both of the day and at night. White count decreased to 9000. March 15, 2019 Patient had an uneventful night. He is still on 4 L, but this morning on 4 L he was 99%. Nursing will wean FiO2 today. His baseline is 2.5 liters per minute. Patient was afebrile overnight. White count is 9000. He did have one episode of hypoglycemia down to 60. Patient had his insulin decreased. March 17, 2019 Patient has been weaned to 2 L nasal cannula. Blood sugars have been stable and patient is doing well overall. Patient is unable to return to [facility] because of availability of oxygen and bariatric walker. Functional Status: Reports: Pain Controlled - Review of Systems General: Reports: No Symptoms. Denies: Fever HEENT: Reports: No Symptoms Pulmonary: Reports: No Symptoms. Denies: Shortness of Breath, Cough Cardiovascular: Reports: No Symptoms. Denies: Chest Pain, Dyspnea on Exertion Gastrointestinal: Reports: No Symptoms - Patient Data Vitals - Most Recent: Last Vital Signs Temp 98.1 F 03/17/19 07:58 Pulse 83 03/17/19 08:10 Resp 20 03/17/19 07:58 BP 130/61 03/17/19 08:10 Pulse Ox 92 L 03/17/19 07:58 Weight - Most Recent: 348 lb 1.6 oz I&O - Last 24 Hours: Intake & Output 03/16/19 03/17/19 03/17/19 22:59 06:59 14:59 Intake Total 1020 400 Output Total 1400 700 Balance -380 -300 Lab Results Last 24 Hours: Laboratory Results - last 24 hr 03/16/19 03/16/19 03/16/19 Range/Units 11:18 16:50 20:20 POC Glucose 118 H 147 H 158 H (80-115) mg/dL Kyle Results Last 24 Hours: Microbiology 03/13/19 05:10 Aerobic Blood Culture - Preliminary Blood NO GROWTH AFTER 4 DAYS Anaerobic Blood Culture - Preliminary NO GROWTH AFTER 4 DAYS 03/13/19 04:25 Aerobic Blood Culture - Preliminary Blood NO GROWTH AFTER 4 DAYS Anaerobic Blood Culture - Preliminary NO GROWTH AFTER 4 DAYS 03/13/19 05:50 Gram Stain - Final Sputum - Expectorated Sputum Culture - Final Haemophilus Influenzae Blessing Albicans Med Orders - Current: Current Medications Acetaminophen (Tylenol) 650 mg PO Q4H PRN PRN Reason: Pain (Mild 1-3)/fever Albuterol/Ipratropium (Duoneb 3.0-0.5 Mg/3 Ml) 3 ml NEB Q4H PRN PRN Reason: Shortness Of Breath/wheezing Last Admin: 03/15/19 16:21 Dose: 3 ml Aspirin (Aspirin) 81 mg PO DAILY [facility] Last Admin: 03/17/19 08:11 Dose: 81 mg Buspirone HCl (Buspar) 30 mg PO BEDTIME [facility] Last Admin: 03/16/19 21:31 Dose: 30 mg Enoxaparin Sodium (Lovenox) 40 mg SUBCUT DAILY [facility] Last Admin: 03/17/19 08:12 Dose: 40 mg Fluoxetine HCl (Prozac) 60 mg PO DAILY [facility] Last Admin: 03/17/19 08:10 Dose: 60 mg Furosemide (Lasix) 40 mg PO DAILY [facility] Last Admin: 03/17/19 08:10 Dose: 40 mg Guaifenesin (Mucinex) 600 mg PO BID PRN PRN Reason: Cough Last Admin: 03/15/19 21:31 Dose: 600 mg Insulin Glargine (Lantus) 50 unit SUBCUT BEDTIME [facility] Last Admin: 03/16/19 21:32 Dose: 50 units Insulin Human Lispro (Humalog) 15 unit SUBCUT TIDAC [facility] Last Admin: 03/17/19 08:11 Dose: 15 units Insulin Human Lispro (Humalog) 0 unit SUBCUT QIDACANDBED [facility]; Protocol Last Admin: 03/17/19 08:12 Dose: Not Given Levofloxacin (Levaquin) 750 mg PO Q24H [facility] Stop: 03/17/19 11:00 Last Admin: 03/17/19 08:10 Dose: 750 mg Lisinopril (Prinivil) 20 mg PO DAILY [facility] Last Admin: 03/17/19 08:10 Dose: 20 mg Metformin HCl (Glucophage) 750 mg PO DAILY [facility] Last Admin: 03/17/19 08:11 Dose: 750 mg Metoprolol Succinate (Toprol Xl) 25 mg PO DAILY [facility] Last Admin: 03/17/19 08:10 Dose: 25 mg Nystatin (Nystatin Oral Syringe) 500,000 unit PO QID [facility] Last Admin: 03/17/19 08:11 Dose: 500,000 unit Ondansetron HCl (Zofran Odt) 4 mg PO Q4H PRN PRN Reason: nausea, able to take PO Potassium Chloride (Klor-Con M20) 20 meq PO DAILY [facility] Last Admin: 03/17/19 08:11 Dose: 20 meq Rosuvastatin Calcium (Crestor) 10 mg PO DAILY [facility] Last Admin: 03/17/19 08:10 Dose: 10 mg Sodium Chloride (Saline Flush) 10 ml FLUSH ASDIRECTED PRN PRN Reason: Keep Vein Open Last Admin: 03/13/19 04:33 Dose: 10 ml Discontinued Medications Albuterol/Ipratropium (Duoneb 3.0-0.5 Mg/3 Ml) 3 ml NEB ONETIME ONE Stop: 03/13/19 04:20 Last Admin: 03/13/19 04:25 Dose: 3 ml Piperacillin Sod/Tazobactam (Sod 4.5 gm/ Sodium Chloride) 100 mls @ 25 mls/hr IV ONETIME ONE Stop: 03/13/19 08:52 Last Admin: 03/13/19 06:44 Dose: 25 mls/hr Levofloxacin/Dextrose 750 mg/ (Premix) 150 mls @ 100 mls/hr IV ONETIME ONE Stop: 03/13/19 06:23 Last Admin: 03/13/19 05:13 Dose: 100 mls/hr Piperacillin Sod/Tazobactam (Sod 4.5 gm/ Sodium Chloride) 100 mls @ 25 mls/hr IV Q8H [facility] Last Admin: 03/16/19 09:27 Dose: Not Given Sodium Chloride (Normal Saline) Confirm Administered Dose 100 mls @ as directed .ROUTE .STK-MED ONE Stop: 03/15/19 15:40 Last Admin: 03/15/19 18:15 Dose: Not Given Insulin Glargine (Lantus) 84 unit SUBCUT DAILY [facility] Insulin Glargine (Lantus) 80 unit SUBCUT BEDTIME [facility] Insulin Glargine (Lantus) 60 unit SUBCUT BEDTIME [facility] Last Admin: 03/13/19 20:59 Dose: 60 units Insulin Human Lispro (Humalog) 0 unit SUBCUT QIDACANDBED [facility]; Protocol Last Admin: 03/14/19 17:09 Dose: Not Given Insulin Human Lispro (Humalog) 25 unit SUBCUT TIDAC [facility] Insulin Human Lispro (Humalog) 20 unit SUBCUT TIDAC [facility] Last Admin: 03/14/19 17:09 Dose: Not Given Lisinopril (Prinivil) 20 mg PO ONETIME ONE Stop: 03/13/19 05:04 Last Admin: 03/13/19 05:15 Dose: 20 mg Metoprolol Succinate (Toprol Xl) 50 mg PO ONETIME ONE Stop: 03/13/19 05:05 Last Admin: 03/13/19 05:16 Dose: 50 mg Non-Formulary Medication (Exenatide Microspheres [Bydureon Pen]) 2 mg SUBCUT WEEKLY [facility] - Exam Quality Assessment: Supplemental Oxygen General: Alert, Oriented HEENT: Pupils Equal, Pupils Reactive Neck: Supple Lungs: Clear to Auscultation, Normal Respiratory Effort Cardiovascular: Regular Rate, Regular Rhythm GI/Abdominal Exam: Normal Bowel Sounds, No Distention - Problem List & Annotations (1) Hypoxemia SNOMED Code(s): 175922644 Code(s): R09.02 - HYPOXEMIA Status: Acute Current Visit: Yes (2) Pneumonia SNOMED Code(s): 429520348 Code(s): J18.9 - PNEUMONIA, UNSPECIFIED ORGANISM Status: Acute Current Visit: Yes Qualifiers: Pneumonia type: due to Haemophilus influenzae Laterality: left Lung location: lower lobe of lung Qualified Code(s): J14 - Pneumonia due to Hemophilus influenzae (3) Respiratory failure with hypoxia SNOMED Code(s): 40972564895226198 Code(s): J96.91 - RESPIRATORY FAILURE, UNSPECIFIED WITH HYPOXIA Status: Acute Current Visit: No Qualifiers: Chronicity: acute Qualified Code(s): J96.01 - Acute respiratory failure with hypoxia (4) Diabetes SNOMED Code(s): 49497921 Code(s): E11.9 - TYPE 2 DIABETES MELLITUS WITHOUT COMPLICATIONS Status: Chronic Current Visit: No Qualifiers: Diabetes mellitus type: type 2 Diabetes mellitus complication status: with skin complications Diabetes mellitus complication detail: with dermatitis Qualified Code(s): E11.620 - Type 2 diabetes mellitus with diabetic dermatitis (5) Morbid obesity SNOMED Code(s): 408203295 Code(s): E66.01 - MORBID (SEVERE) OBESITY DUE TO EXCESS CALORIES Status: Chronic Current Visit: No - Problem List Review Problem List Initiated/Reviewed/Updated: Yes - My Orders Last 24 Hours: My Active Orders 03/16/19 13:00 Nystatin [Nystatin Oral Syringe] 500,000 unit PO QID 03/17/19 07:14 Blood Glucose Check, Bedside [RC] QIDACANDBED - Plan Plan:: Pneumonia due to Haemophilus * sputum culture came back growing Haemophilus influenza sensitive to Levaquin. * Finish last dose of Levaquin today. Adrián 5 total days. * Sputum also demonstrated Blessing albicans * White count decreased to 7000 * Incentive spirometry and albuterol/ipratropium bromide every 4 hours when necessary * nystatin swish and swallow for oral yeast. Diabetes * From the patient's home medications appears he is very insulin resistant. * No episodes of hypoglycemia over last 24 hours * Decrease both basal and prandial insulin yesterday * Follow fingerstick blood sugars very closely secondary to Levaquin hypoglycemic potential Hypoxemia * FiO2 to keep oxygen saturations above 90%. * Baseline FiO2 is 2.5 L * ABG on admission did demonstrate slight elevation of his PCO2 at 48 and decreasing his PaO2 of 77%. * Continue home CPAP Order physical therapy and occupational therapy to keep him ambulating.. Length of stay greater than 96 hours. This is 2/2 slow resolution of his hypoxemia and now due to the group home not having oxygen or a bariatric walker. They should have both on Tuesday, March 19, 2019.
[2019-03-17] MEDS ORDERED: Piperacillin/Tazobactam 4.5 GM in Sodium Chloride 0.9% 100 ML IV SCH (10:45)
[2019-03-17] MEDS: Piperacillin/Tazobactam 4.5 GM in Sodium Chloride 0.9% 100 ML IV SCH (17:25)
[2019-03-17] MEDS: Insulin Glarg,Human.Rec.Analog 100 UNIT/ML ML SUBCUT SCH (21:08)
[2019-03-17] MEDS: busPIRone 15 MG Tab PO SCH (21:08)
[2019-03-18] MEDS: Piperacillin/Tazobactam 4.5 GM in Sodium Chloride 0.9% 100 ML IV SCH ×4 (02:21→17:21)
[2019-03-18] MEDS: Insulin Lispro 100 Units/ML 3 ML Vial SUBCUT SCH ×7 (08:36→21:52)
[2019-03-18] MEDS: FLUoxetine 20 MG Cap PO SCH (10:52)
[2019-03-18] MEDS: metFORMIN 500 MG Tab PO SCH (10:53)
[2019-03-18] MEDS: Furosemide 40 MG Tab PO SCH (10:54)
[2019-03-18] MEDS: Aspirin 81 MG Tab.Chew PO SCH (10:54)
[2019-03-18] MEDS: Metoprolol Succinate 25 MG Tab.ER PO SCH (10:55)
[2019-03-18] MEDS: Potassium Chloride 20 MEQ Tab.ER PO SCH (10:55)
[2019-03-18] MEDS: Rosuvastatin 10 MG Tab PO SCH (10:55)
[2019-03-18] MEDS: Enoxaparin 40 MG/0.4 ML Syringe SUBCUT SCH (10:59)
[2019-03-18] MEDS: Nystatin Susp 100,000 Unit/ML 5 ML Oral Syringe PO SCH ×4 (10:59→20:44)
[2019-03-18] MEDS: Lisinopril 20 MG Tab PO SCH (10:59)
--- NOTE | 2019-03-18 11:48 | PCM.PN ---
- General Info Date of Service: 03/18/19 Admission Dx/Problem (Free Text): Admission Diagnosis/Problem Admission Diagnosis/Problem Pneumonia Subjective Update: March 14, 2019 Patient had an uneventful night. He is afebrile and has been weaned to 4 L nasal cannula from 5. He is on 2-1/2 L at home both of the day and at night. White count decreased to 9000. March 15, 2019 Patient had an uneventful night. He is still on 4 L, but this morning on 4 L he was 99%. Nursing will wean FiO2 today. His baseline is 2.5 liters per minute. Patient was afebrile overnight. White count is 9000. He did have one episode of hypoglycemia down to 60. Patient had his insulin decreased. March 17, 2019 Patient has been weaned to 2 L nasal cannula. Blood sugars have been stable and patient is doing well overall. Patient is unable to return to [facility] because of availability of oxygen and bariatric walker. March 18, 2019 Patient was afebrile overnight. White count went up slightly. Anaerobic branching gram-positive rods were obtained from his blood culture. Patient was restarted on Zosyn. Patient also has a small area on the right lower abdomen that is indurated and we started warm compresses. Functional Status: Reports: Pain Controlled - Review of Systems General: Reports: No Symptoms. Denies: Fever HEENT: Reports: No Symptoms Pulmonary: Reports: No Symptoms. Denies: Shortness of Breath, Cough Cardiovascular: Reports: No Symptoms. Denies: Chest Pain, Dyspnea on Exertion Gastrointestinal: Reports: No Symptoms. Denies: Abdominal Pain - Patient Data Vitals - Most Recent: Last Vital Signs Temp 98.2 F 03/18/19 02:17 Pulse 76 03/18/19 10:55 Resp 20 03/18/19 02:17 BP 117/64 03/18/19 10:59 Pulse Ox 90 L 03/18/19 09:50 Weight - Most Recent: 346 lb 4.8 oz I&O - Last 24 Hours: Intake & Output 03/17/19 03/18/19 03/18/19 22:59 06:59 14:59 Intake Total 960 900 100 Output Total 900 900 Balance 60 0 100 Lab Results Last 24 Hours: Laboratory Results - last 24 hr 06/15/19 06/15/19 06/15/19 Range/Units 07:21 11:53 17:11 WBC (4.23-9.07) K/mm3 RBC (4.63-6.08) M/mm3 Hgb (13.7-17.5) gm/L Hct (40.1-51.0) % MCV (79.0-92.2) fl MCH (25.7-32.2) pg MCHC (32.2-35.5) g/dl RDW Std Deviation (35.1-43.9) fL Plt Count (163-337) K/mm3 MPV (9.4-12.3) fl Neut % (Auto) (34.0-67.9) % Lymph % (Auto) (21.8-53.1) % Sanders % (Auto) (5.3-12.2) % Eos % (Auto) (0.8-7.0) Baso % (Auto) (0.1-1.2) % Neut # (Auto) (1.78-5.38) K/mm3 Lymph # (Auto) (1.32-3.57) K/mm3 Sanders # (Auto) (0.30-0.82) K/mm3 Eos # (Auto) (0.04-0.54) K/mm3 Baso # (Auto) (0.01-0.08) K/mm3 Sodium (136-145) mEq/L Potassium (3.5-5.1) mEq/L Chloride (98-107) mEq/L Carbon Dioxide (21-32) mEq/L Anion Gap (5-15) BUN (7-18) mg/dL Creatinine (0.7-1.3) mg/dL Est Cr Clr Drug Dosing mL/min Estimated GFR (MDRD) (>60) mL/min BUN/Creatinine Ratio (14-18) Glucose (80-115) mg/dL POC Glucose 139 H 118 H 149 H (80-115) mg/dL Calcium (8.5-10.1) mg/dL C-Reactive Protein (<1.0) mg/dL 03/17/19 03/18/19 03/18/19 Range/Units 21:07 04:40 04:40 WBC 10.19 H (4.23-9.07) K/mm3 RBC 5.01 (4.63-6.08) M/mm3 Hgb 13.8 (13.7-17.5) gm/L Hct 44.8 (40.1-51.0) % MCV 89.4 (79.0-92.2) fl MCH 27.5 (25.7-32.2) pg MCHC 30.8 L (32.2-35.5) g/dl RDW Std Deviation 48.6 H (35.1-43.9) fL Plt Count 241 (163-337) K/mm3 MPV 11.1 (9.4-12.3) fl Neut % (Auto) 72.9 H (34.0-67.9) % Lymph % (Auto) 13.7 L (21.8-53.1) % Sanders % (Auto) 11.7 (5.3-12.2) % Eos % (Auto) 1.2 (0.8-7.0) Baso % (Auto) 0.2 (0.1-1.2) % Neut # (Auto) 7.43 H (1.78-5.38) K/mm3 Lymph # (Auto) 1.40 (1.32-3.57) K/mm3 Sanders # (Auto) 1.19 H (0.30-0.82) K/mm3 Eos # (Auto) 0.12 (0.04-0.54) K/mm3 Baso # (Auto) 0.02 (0.01-0.08) K/mm3 Sodium 142 (136-145) mEq/L Potassium 4.1 (3.5-5.1) mEq/L Chloride 104 (98-107) mEq/L Carbon Dioxide 31 (21-32) mEq/L Anion Gap 11.1 (5-15) BUN 18 (7-18) mg/dL Creatinine 0.7 (0.7-1.3) mg/dL Est Cr Clr Drug Dosing 111.53 mL/min Estimated GFR (MDRD) > 60 (>60) mL/min BUN/Creatinine Ratio 25.7 H (14-18) Glucose 137 H (80-115) mg/dL POC Glucose 161 H (80-115) mg/dL Calcium 9.7 (8.5-10.1) mg/dL C-Reactive Protein 2.2 H* (<1.0) mg/dL 03/18/19 Range/Units 07:15 WBC (4.23-9.07) K/mm3 RBC (4.63-6.08) M/mm3 Hgb (13.7-17.5) gm/L Hct (40.1-51.0) % MCV (79.0-92.2) fl MCH (25.7-32.2) pg MCHC (32.2-35.5) g/dl RDW Std Deviation (35.1-43.9) fL Plt Count (163-337) K/mm3 MPV (9.4-12.3) fl Neut % (Auto) (34.0-67.9) % Lymph % (Auto) (21.8-53.1) % Sanders % (Auto) (5.3-12.2) % Eos % (Auto) (0.8-7.0) Baso % (Auto) (0.1-1.2) % Neut # (Auto) (1.78-5.38) K/mm3 Lymph # (Auto) (1.32-3.57) K/mm3 Sanders # (Auto) (0.30-0.82) K/mm3 Eos # (Auto) (0.04-0.54) K/mm3 Baso # (Auto) (0.01-0.08) K/mm3 Sodium (136-145) mEq/L Potassium (3.5-5.1) mEq/L Chloride (98-107) mEq/L Carbon Dioxide (21-32) mEq/L Anion Gap (5-15) BUN (7-18) mg/dL Creatinine (0.7-1.3) mg/dL Est Cr Clr Drug Dosing mL/min Estimated GFR (MDRD) (>60) mL/min BUN/Creatinine Ratio (14-18) Glucose (80-115) mg/dL POC Glucose 140 H (80-115) mg/dL Calcium (8.5-10.1) mg/dL C-Reactive Protein (<1.0) mg/dL Kyle Results Last 24 Hours: Microbiology 03/13/19 04:25 Aerobic Blood Culture - Preliminary Blood NO GROWTH AFTER 5 DAYS Anaerobic Blood Culture - Preliminary Gram Positive Rods 03/13/19 05:10 Aerobic Blood Culture - Preliminary Blood NO GROWTH AFTER 5 DAYS Anaerobic Blood Culture - Preliminary NO GROWTH AFTER 5 DAYS Med Orders - Current: Current Medications Acetaminophen (Tylenol) 650 mg PO Q4H PRN PRN Reason: Pain (Mild 1-3)/fever Albuterol/Ipratropium (Duoneb 3.0-0.5 Mg/3 Ml) 3 ml NEB Q4H PRN PRN Reason: Shortness Of Breath/wheezing Last Admin: 03/15/19 16:21 Dose: 3 ml Aspirin (Aspirin) [address] [facility] Last Admin: 03/18/19 10:54 Dose: 81 mg Buspirone HCl (Buspar) [address] [facility] Last Admin: 03/17/19 21:08 Dose: 30 mg Enoxaparin Sodium (Lovenox) [address] [facility] Last Admin: 03/18/19 10:59 Dose: 40 mg Fluoxetine HCl (Prozac) [address] [facility] Last Admin: 03/18/19 10:52 Dose: 60 mg Furosemide (Lasix) [address] [facility] Last Admin: 03/18/19 10:54 Dose: 40 mg Guaifenesin (Mucinex) 600 mg PO BID PRN PRN Reason: Cough Last Admin: 03/15/19 21:31 Dose: 600 mg Piperacillin Sod/Tazobactam (Sod 4.5 gm/ Sodium Chloride) 100 mls @ 25 mls/hr IV Q6H [facility] Last Admin: 03/18/19 07:19 Dose: 25 mls/hr Insulin Glargine (Lantus) [address] [facility] Last Admin: 03/17/19 21:08 Dose: 50 units Insulin Human Lispro (Humalog) [address] [facility] Last Admin: 03/18/19 11:00 Dose: 15 units Insulin Human Lispro (Humalog) [address] [facility]; Protocol Last Admin: 03/18/19 11:04 Dose: Not Given Lisinopril (Prinivil) [address] [facility] Last Admin: 03/18/19 10:59 Dose: 20 mg Metformin HCl (Glucophage) [address] [facility] Last Admin: 03/18/19 10:53 Dose: 750 mg Metoprolol Succinate (Toprol Xl) [address] [facility] Last Admin: 03/18/19 10:55 Dose: 25 mg Nystatin (Nystatin Oral Syringe) 500,[address] [facility] Last Admin: 03/18/19 10:59 Dose: 500,000 unit Ondansetron HCl (Zofran Odt) 4 mg PO Q4H PRN PRN Reason: nausea, able to take PO Potassium Chloride (Klor-Con M20) [address] [facility] Last Admin: 03/18/19 10:55 Dose: 20 meq Rosuvastatin Calcium (Crestor) [address] [facility] Last Admin: 03/18/19 10:55 Dose: 10 mg Sodium Chloride (Saline Flush) 10 ml FLUSH ASDIRECTED PRN PRN Reason: Keep Vein Open Last Admin: 03/13/19 04:33 Dose: 10 ml Discontinued Medications Albuterol/Ipratropium (Duoneb 3.0-0.5 Mg/3 Ml) 3 ml NEB ONETIME ONE Stop: 03/13/19 04:20 Last Admin: 03/13/19 04:25 Dose: 3 ml Piperacillin Sod/Tazobactam (Sod 4.5 gm/ Sodium Chloride) 100 mls @ 25 mls/hr IV ONETIME ONE Stop: 03/13/19 08:52 Last Admin: 03/13/19 06:44 Dose: 25 mls/hr Levofloxacin/Dextrose 750 mg/ (Premix) 150 mls @ 100 mls/hr IV ONETIME ONE Stop: 03/13/19 06:23 Last Admin: 03/13/19 05:13 Dose: 100 mls/hr Piperacillin Sod/Tazobactam (Sod 4.5 gm/ Sodium Chloride) 100 mls @ 25 mls/hr IV Q8H [facility] Last Admin: 03/16/19 09:27 Dose: Not Given Sodium Chloride (Normal Saline) Confirm Administered Dose 100 mls @ as directed .ROUTE .STK-MED ONE Stop: 03/15/19 15:40 Last Admin: 03/15/19 18:15 Dose: Not Given Piperacillin Sod/Tazobactam (Sod 4.5 gm/ Sodium Chloride) 100 mls @ 25 mls/hr IV Q6H [facility] Last Admin: 03/17/19 12:04 Dose: 25 mls/hr Insulin Glargine (Lantus) [address] [facility] Insulin Glargine (Lantus) [address] [facility] Insulin Glargine (Lantus) [address] [facility] Last Admin: 03/13/19 20:59 Dose: 60 units Insulin Human Lispro (Humalog) [address] [facility]; Protocol Last Admin: 03/14/19 17:09 Dose: Not Given Insulin Human Lispro (Humalog) [address] [facility] Insulin Human Lispro (Humalog) [address] [facility] Last Admin: 03/14/19 17:09 Dose: Not Given Levofloxacin (Levaquin) [address] [facility] Stop: 03/17/19 11:00 Last Admin: 03/17/19 08:10 Dose: 750 mg Lisinopril (Prinivil) 20 mg PO ONETIME ONE Stop: 03/13/19 05:04 Last Admin: 03/13/19 05:15 Dose: 20 mg Metoprolol Succinate (Toprol Xl) 50 mg PO ONETIME ONE Stop: 03/13/19 05:05 Last Admin: 03/13/19 05:16 Dose: 50 mg Non-Formulary Medication (Exenatide Microspheres [Bydureon Pen]) [address] [facility] - Exam Quality Assessment: Supplemental Oxygen General: Alert, Oriented HEENT: Pupils Equal, Pupils Reactive Neck: Supple Lungs: Clear to Auscultation, Normal Respiratory Effort Cardiovascular: Regular Rate, Regular Rhythm GI/Abdominal Exam: Normal Bowel Sounds, Soft, Non-Tender, No Distention, Other ( Small circular area on the right lower abdomen that is slightly red and indurated. Nontender.) Extremities: Normal Capillary Refill, Pedal Edema Skin: Warm, Dry, Intact Neurological: No New Focal Deficit Psy/Mental Status: Alert, Normal Affect, Normal Mood - Problem List & Annotations (1) Hypoxemia SNOMED Code(s): 438818813 Code(s): R09.02 - HYPOXEMIA Status: Acute Current Visit: Yes (2) Pneumonia SNOMED Code(s): 575600762 Code(s): J18.9 - PNEUMONIA, UNSPECIFIED ORGANISM Status: Acute Current Visit: Yes Qualifiers: Pneumonia type: due to Haemophilus influenzae Laterality: left Lung location: lower lobe of lung Qualified Code(s): J14 - Pneumonia due to Hemophilus influenzae (3) Respiratory failure with hypoxia SNOMED Code(s): 29827788611813220 Code(s): J96.91 - RESPIRATORY FAILURE, UNSPECIFIED WITH HYPOXIA Status: Acute Current Visit: No Qualifiers: Chronicity: acute Qualified Code(s): J96.01 - Acute respiratory failure with hypoxia (4) Diabetes SNOMED Code(s): 95439751 Code(s): E11.9 - TYPE 2 DIABETES MELLITUS WITHOUT COMPLICATIONS Status: Chronic Current Visit: No Qualifiers: Diabetes mellitus type: type 2 Diabetes mellitus complication status: with skin complications Diabetes mellitus complication detail: with dermatitis Qualified Code(s): E11.620 - Type 2 diabetes mellitus with diabetic dermatitis (5) Morbid obesity SNOMED Code(s): 736377199 Code(s): E66.01 - MORBID (SEVERE) OBESITY DUE TO EXCESS CALORIES Status: Chronic Current Visit: No - Problem List Review Problem List Initiated/Reviewed/Updated: Yes - My Orders Last 24 Hours: My Active Orders 03/17/19 18:00 Piperacillin/Tazobactam [Piperacil-Tazobact] 4.5 gm Sodium Chloride 0.9% [ Normal Saline] 100 ml IV Q6H 03/17/19 21:00 Communication Order [RC] DAILY - Plan Plan:: Anaerobic bacteremia * Restart Zosyn * Await sensitivity results and final cultures * Follow CBC and C-reactive protein * CBC did increase to 10,000, but C-reactive protein continues to decrease. Pneumonia due to Haemophilus * sputum culture came back growing Haemophilus influenza sensitive to Levaquin. * Finished 5 days of Levaquin. Last dose last night. * Sputum also demonstrated Blessing albicans * White count increased to 10,000 * Incentive spirometry and albuterol/ipratropium bromide every 4 hours when necessary * nystatin swish and swallow for oral yeast. Diabetes * From the patient's home medications appears he is very insulin resistant. * No episodes of hypoglycemia over last 24 hours * Decrease both basal and prandial insulin yesterday * Follow fingerstick blood sugars very closely secondary to Levaquin hypoglycemic potential Hypoxemia * FiO2 to keep oxygen saturations above 90%. * Baseline FiO2 is 2.5 L * ABG on admission did demonstrate slight elevation of his PCO2 at 48 and decreasing his PaO2 of 77%. * Continue home CPAP New area of induration right lower abdomen * Continue warm compresses and no injections into that area. * Follow up in the morning. Order physical therapy and occupational therapy to keep him ambulating.. Length of stay greater than 96 hours. This is 2/2 slow resolution of his hypoxemia and now due to the snf not having oxygen or a bariatric walker. Now patient has positive blood cultures for anaerobic gram-positive rods.
[2019-03-18] MEDS: Insulin Glarg,Human.Rec.Analog 100 UNIT/ML ML SUBCUT SCH (20:44)
[2019-03-18] MEDS: busPIRone 15 MG Tab PO SCH (20:44)
[2019-03-19] MEDS: Piperacillin/Tazobactam 4.5 GM in Sodium Chloride 0.9% 100 ML IV SCH ×4 (00:30→20:18)
[2019-03-19] MEDS: Insulin Lispro 100 Units/ML 3 ML Vial SUBCUT SCH ×7 (08:10→21:23)
[2019-03-19] MEDS: Enoxaparin 40 MG/0.4 ML Syringe SUBCUT SCH (08:55)
[2019-03-19] MEDS: metFORMIN 500 MG Tab PO SCH (08:56)
[2019-03-19] MEDS: Potassium Chloride 20 MEQ Tab.ER PO SCH (08:56)
[2019-03-19] MEDS: FLUoxetine 20 MG Cap PO SCH (08:58)
[2019-03-19] MEDS: Aspirin 81 MG Tab.Chew PO SCH (08:59)
[2019-03-19] MEDS: Lisinopril 20 MG Tab PO SCH (08:59)
[2019-03-19] MEDS: Metoprolol Succinate 25 MG Tab.ER PO SCH (09:01)
[2019-03-19] MEDS: Rosuvastatin 10 MG Tab PO SCH (09:01)
[2019-03-19] MEDS: Furosemide 40 MG Tab PO SCH (09:02)
[2019-03-19] MEDS: Nystatin Susp 100,000 Unit/ML 5 ML Oral Syringe PO SCH ×4 (09:03→20:17)
--- NOTE | 2019-03-19 12:32 | PCM.PN ---
- General Info Date of Service: 03/19/19 Admission Dx/Problem (Free Text): Admission Diagnosis/Problem Admission Diagnosis/Problem Pneumonia Subjective Update: March 14, 2019 Patient had an uneventful night. He is afebrile and has been weaned to 4 L nasal cannula from 5. He is on 2-1/2 L at home both of the day and at night. White count decreased to 9000. March 15, 2019 Patient had an uneventful night. He is still on 4 L, but this morning on 4 L he was 99%. Nursing will wean FiO2 today. His baseline is 2.5 liters per minute. Patient was afebrile overnight. White count is 9000. He did have one episode of hypoglycemia down to 60. Patient had his insulin decreased. March 17, 2019 Patient has been weaned to 2 L nasal cannula. Blood sugars have been stable and patient is doing well overall. Patient is unable to return to [facility] because of availability of oxygen and bariatric walker. March 18, 2019 Patient was afebrile overnight. White count went up slightly. Anaerobic branching gram-positive rods were obtained from his blood culture. Patient was restarted on Zosyn. Patient also has a small area on the right lower abdomen that is indurated and we started warm compresses. March 19, 2019 Patient continues to be afebrile. White count has increased slightly again to 11 ,000. Culture and sensitivity has not been finished. Patient is continuing on Zosyn and O2. Functional Status: Reports: Pain Controlled - Review of Systems General: Reports: No Symptoms HEENT: Reports: No Symptoms Pulmonary: Reports: No Symptoms. Denies: Shortness of Breath, Cough Cardiovascular: Reports: No Symptoms Gastrointestinal: Reports: No Symptoms - Patient Data Vitals - Most Recent: Last Vital Signs Temp 98.4 F 03/19/19 08:08 Pulse 78 03/19/19 09:01 Resp 24 H 03/19/19 08:08 BP 123/94 H 03/19/19 09:01 Pulse Ox 95 03/19/19 08:08 Weight - Most Recent: 343 lb 9.6 oz I&O - Last 24 Hours: Intake & Output 03/18/19 03/19/19 03/19/19 22:59 06:59 14:59 Intake Total 1240 520 180 Balance 1240 520 180 Lab Results Last 24 Hours: Laboratory Results - last 24 hr 03/18/19 03/18/19 03/18/19 Range/Units 10:40 17:06 20:36 WBC (4.23-9.07) K/mm3 RBC (4.63-6.08) M/mm3 Hgb (13.7-17.5) gm/L Hct (40.1-51.0) % MCV (79.0-92.2) fl MCH (25.7-32.2) pg MCHC (32.2-35.5) g/dl RDW Std Deviation (35.1-43.9) fL Plt Count (163-337) K/mm3 MPV (9.4-12.3) fl Neut % (Auto) (34.0-67.9) % Lymph % (Auto) (21.8-53.1) % [place] % (Auto) (5.3-12.2) % Eos % (Auto) (0.8-7.0) Baso % (Auto) (0.1-1.2) % Neut # (Auto) (1.78-5.38) K/mm3 Lymph # (Auto) (1.32-3.57) K/mm3 [place]ry # (Auto) (0.30-0.82) K/mm3 Eos # (Auto) (0.04-0.54) K/mm3 Baso # (Auto) (0.01-0.08) K/mm3 POC Glucose 150 H 133 H 133 H (80-115) mg/dL C-Reactive Protein (<1.0) mg/dL 03/19/19 03/19/19 03/19/19 Range/Units 04:45 04:45 06:07 WBC 11.05 H (4.23-9.07) K/mm3 RBC 5.05 (4.63-6.08) M/mm3 Hgb 14.2 (13.7-17.5) gm/L Hct 44.8 (40.1-51.0) % MCV 88.7 (79.0-92.2) fl MCH 28.1 (25.7-32.2) pg MCHC 31.7 L (32.2-35.5) g/dl RDW Std Deviation 47.8 H (35.1-43.9) fL Plt Count 249 (163-337) K/mm3 MPV 11.0 (9.4-12.3) fl Neut % (Auto) 73.5 H (34.0-67.9) % Lymph % (Auto) 14.8 L (21.8-53.1) % [place] % (Auto) 10.0 (5.3-12.2) % Eos % (Auto) 1.2 (0.8-7.0) Baso % (Auto) 0.2 (0.1-1.2) % Neut # (Auto) 8.13 H (1.78-5.38) K/mm3 Lymph # (Auto) 1.63 (1.32-3.57) K/mm3 [place] # (Auto) 1.11 H (0.30-0.82) K/mm3 Eos # (Auto) 0.13 (0.04-0.54) K/mm3 Baso # (Auto) 0.02 (0.01-0.08) K/mm3 POC Glucose 140 H (80-115) mg/dL C-Reactive Protein 1.8 H* (<1.0) mg/dL 03/19/19 Range/Units 11:21 WBC (4.23-9.07) K/mm3 RBC (4.63-6.08) M/mm3 Hgb (13.7-17.5) gm/L Hct (40.1-51.0) % MCV (79.0-92.2) fl MCH (25.7-32.2) pg MCHC (32.2-35.5) g/dl RDW Std Deviation (35.1-43.9) fL Plt Count (163-337) K/mm3 MPV (9.4-12.3) fl Neut % (Auto) (34.0-67.9) % Lymph % (Auto) (21.8-53.1) % [place] % (Auto) (5.3-12.2) % Eos % (Auto) (0.8-7.0) Baso % (Auto) (0.1-1.2) % Neut # (Auto) (1.78-5.38) K/mm3 Lymph # (Auto) (1.32-3.57) K/mm3 [place] # (Auto) (0.30-0.82) K/mm3 Eos # (Auto) (0.04-0.54) K/mm3 Baso # (Auto) (0.01-0.08) K/mm3 POC Glucose 107 (80-115) mg/dL C-Reactive Protein (<1.0) mg/dL Kyle Results Last 24 Hours: Microbiology 03/13/19 04:25 Aerobic Blood Culture - Preliminary Blood NO GROWTH AFTER 6 DAYS Anaerobic Blood Culture - Preliminary Gram Positive Rods 03/13/19 05:10 Aerobic Blood Culture - Preliminary Blood NO GROWTH AFTER 6 DAYS Anaerobic Blood Culture - Preliminary NO GROWTH AFTER 6 DAYS Med Orders - Current: Current Medications Acetaminophen (Tylenol) 650 mg PO Q4H PRN PRN Reason: Pain (Mild 1-3)/fever Albuterol/Ipratropium (Duoneb 3.0-0.5 Mg/3 Ml) 3 ml NEB Q4H PRN PRN Reason: Shortness Of Breath/wheezing Last Admin: 03/15/19 16:21 Dose: 3 ml Aspirin (Aspirin) 81 mg PO DAILY [facility] Last Admin: 03/19/19 08:59 Dose: 81 mg Buspirone HCl (Buspar) 30 mg PO BEDTIME [facility] Last Admin: 03/18/19 20:44 Dose: 30 mg Enoxaparin Sodium (Lovenox) 40 mg SUBCUT DAILY [facility] Last Admin: 03/19/19 08:55 Dose: 40 mg Fluoxetine HCl (Prozac) 60 mg PO DAILY [facility] Last Admin: 03/19/19 08:58 Dose: 60 mg Furosemide (Lasix) 40 mg PO DAILY [facility] Last Admin: 03/19/19 09:02 Dose: 40 mg Guaifenesin (Mucinex) 600 mg PO BID PRN PRN Reason: Cough Last Admin: 03/15/19 21:31 Dose: 600 mg Piperacillin Sod/Tazobactam (Sod 4.5 gm/ Sodium Chloride) 100 mls @ 25 mls/hr IV Q6H [facility] Last Admin: 03/19/19 12:21 Dose: 25 mls/hr Insulin Glargine (Lantus) 50 unit SUBCUT BEDTIME [facility] Last Admin: 03/18/19 20:44 Dose: 50 units Insulin Human Lispro (Humalog) 15 unit SUBCUT TIDAC [facility] Last Admin: 03/19/19 12:21 Dose: 15 units Insulin Human Lispro (Humalog) 0 unit SUBCUT QIDACANDBED [facility]; Protocol Last Admin: 03/19/19 12:22 Dose: Not Given Lisinopril (Prinivil) 20 mg PO DAILY [facility] Last Admin: 03/19/19 08:59 Dose: 20 mg Metformin HCl (Glucophage) 750 mg PO DAILY [facility] Last Admin: 03/19/19 08:56 Dose: 750 mg Metoprolol Succinate (Toprol Xl) 25 mg PO DAILY [facility] Last Admin: 03/19/19 09:01 Dose: 25 mg Nystatin (Nystatin Oral Syringe) 500,000 unit PO QID [facility] Last Admin: 03/19/19 12:22 Dose: 500,000 unit Ondansetron HCl (Zofran Odt) 4 mg PO Q4H PRN PRN Reason: nausea, able to take PO Potassium Chloride (Klor-Con M20) 20 meq PO DAILY [facility] Last Admin: 03/19/19 08:56 Dose: 20 meq Rosuvastatin Calcium (Crestor) 10 mg PO DAILY [facility] Last Admin: 03/19/19 09:01 Dose: 10 mg Sodium Chloride (Saline Flush) 10 ml FLUSH ASDIRECTED PRN PRN Reason: Keep Vein Open Last Admin: 03/13/19 04:33 Dose: 10 ml Discontinued Medications Albuterol/Ipratropium (Duoneb 3.0-0.5 Mg/3 Ml) 3 ml NEB ONETIME ONE Stop: 03/13/19 04:20 Last Admin: 03/13/19 04:25 Dose: 3 ml Piperacillin Sod/Tazobactam (Sod 4.5 gm/ Sodium Chloride) 100 mls @ 25 mls/hr IV ONETIME ONE Stop: 03/13/19 08:52 Last Admin: 03/13/19 06:44 Dose: 25 mls/hr Levofloxacin/Dextrose 750 mg/ (Premix) 150 mls @ 100 mls/hr IV ONETIME ONE Stop: 03/13/19 06:23 Last Admin: 03/13/19 05:13 Dose: 100 mls/hr Piperacillin Sod/Tazobactam (Sod 4.5 gm/ Sodium Chloride) 100 mls @ 25 mls/hr IV Q8H [facility] Last Admin: 03/16/19 09:27 Dose: Not Given Sodium Chloride (Normal Saline) Confirm Administered Dose 100 mls @ as directed .ROUTE .STK-MED ONE Stop: 03/15/19 15:40 Last Admin: 03/15/19 18:15 Dose: Not Given Piperacillin Sod/Tazobactam (Sod 4.5 gm/ Sodium Chloride) 100 mls @ 25 mls/hr IV Q6H [facility] Last Admin: 03/17/19 12:04 Dose: 25 mls/hr Insulin Glargine (Lantus) 84 unit SUBCUT DAILY [facility] Insulin Glargine (Lantus) 80 unit SUBCUT BEDTIME [facility] Insulin Glargine (Lantus) 60 unit SUBCUT BEDTIME [facility] Last Admin: 03/13/19 20:59 Dose: 60 units Insulin Human Lispro (Humalog) 0 unit SUBCUT QIDACANDBED [facility]; Protocol Last Admin: 03/14/19 17:09 Dose: Not Given Insulin Human Lispro (Humalog) 25 unit SUBCUT TIDAC [facility] Insulin Human Lispro (Humalog) 20 unit SUBCUT TIDAC [facility] Last Admin: 03/14/19 17:09 Dose: Not Given Levofloxacin (Levaquin) 750 mg PO Q24H [facility] Stop: 03/17/19 11:00 Last Admin: 03/17/19 08:10 Dose: 750 mg Lisinopril (Prinivil) 20 mg PO ONETIME ONE Stop: 03/13/19 05:04 Last Admin: 03/13/19 05:15 Dose: 20 mg Metoprolol Succinate (Toprol Xl) 50 mg PO ONETIME ONE Stop: 03/13/19 05:05 Last Admin: 03/13/19 05:16 Dose: 50 mg Non-Formulary Medication (Exenatide Microspheres [Bydureon Pen]) 2 mg SUBCUT WEEKLY [facility] - Exam Quality Assessment: Supplemental Oxygen General: Alert, Oriented HEENT: Pupils Equal, Pupils Reactive, EOMI, Mucous Membr. Moist/[place] Neck: Supple Lungs: Clear to Auscultation, Normal Respiratory Effort Cardiovascular: Regular Rate, Regular Rhythm GI/Abdominal Exam: Normal Bowel Sounds, Soft, Non-Tender, No Organomegaly, No Distention Extremities: Normal Inspection, Normal Range of Motion, Non-Tender, No Pedal Edema Skin: Warm, Other (quarter sized area of redness and induration of the right lower abdomen with no significant increased warmth) - Problem List & Annotations (1) Hypoxemia SNOMED Code(s): 003104852 Code(s): R09.02 - HYPOXEMIA Status: Acute Current Visit: Yes (2) Pneumonia SNOMED Code(s): 053581876 Code(s): J18.9 - PNEUMONIA, UNSPECIFIED ORGANISM Status: Acute Current Visit: Yes Qualifiers: Pneumonia type: due to Haemophilus influenzae Laterality: left Lung location: lower lobe of lung Qualified Code(s): J14 - Pneumonia due to Hemophilus influenzae (3) Respiratory failure with hypoxia SNOMED Code(s): 29401281921630980 Code(s): J96.91 - RESPIRATORY FAILURE, UNSPECIFIED WITH HYPOXIA Status: Acute Current Visit: No Qualifiers: Chronicity: acute Qualified Code(s): J96.01 - Acute respiratory failure with hypoxia (4) Diabetes SNOMED Code(s): 03927183 Code(s): E11.9 - TYPE 2 DIABETES MELLITUS WITHOUT COMPLICATIONS Status: Chronic Current Visit: No Qualifiers: Diabetes mellitus type: type 2 Diabetes mellitus complication status: with skin complications Diabetes mellitus complication detail: with dermatitis Qualified Code(s): E11.620 - Type 2 diabetes mellitus with diabetic dermatitis (5) Morbid obesity SNOMED Code(s): 120435488 Code(s): E66.01 - MORBID (SEVERE) OBESITY DUE TO EXCESS CALORIES Status: Chronic Current Visit: No - Problem List Review Problem List Initiated/Reviewed/Updated: Yes - Plan Plan:: Anaerobic bacteremia * Restart Zosyn * Await sensitivity results and final cultures * Follow CBC and C-reactive protein * CBC did increase to 11,000, but C-reactive protein continues to decrease , 1.8. Pneumonia due to Haemophilus * sputum culture came back growing Haemophilus influenza sensitive to Levaquin. * Finished 5 days of Levaquin. Last dose last night. * Sputum also demonstrated Blessing albicans * White count increased to 11,000 * Incentive spirometry and albuterol/ipratropium bromide every 4 hours when necessary * nystatin swish and swallow for oral yeast. Diabetes * From the patient's home medications appears he is very insulin resistant. * No episodes of hypoglycemia over last 24 hours * Decrease both basal and prandial insulin yesterday * Follow fingerstick blood sugars very closely secondary to Levaquin hypoglycemic potential Hypoxemia * FiO2 to keep oxygen saturations above 90%. * Baseline FiO2 is 2.5 L * ABG on admission did demonstrate slight elevation of his PCO2 at 48 and decreasing his PaO2 of 77%. * Continue home CPAP New area of induration right lower abdomen * Continue warm compresses and no injections into that area. * no significant change and is nontender Order physical therapy and occupational therapy to keep him ambulating.. Length of stay greater than 96 hours. This is 2/2 slow resolution of his hypoxemia and now due to the [facility] not having oxygen or a bariatric walker. Now patient has positive blood cultures for anaerobic gram-positive rods.
[2019-03-19] MEDS: busPIRone 15 MG Tab PO SCH (20:17)
[2019-03-19] MEDS: Insulin Glarg,Human.Rec.Analog 100 UNIT/ML ML SUBCUT SCH (21:29)
[2019-03-20] MEDS: Piperacillin/Tazobactam 4.5 GM in Sodium Chloride 0.9% 100 ML IV SCH (03:30)
[2019-03-20] MEDS: Insulin Lispro 100 Units/ML 3 ML Vial SUBCUT SCH ×4 (07:33→11:45)
[2019-03-20] MEDS: Enoxaparin 40 MG/0.4 ML Syringe SUBCUT SCH (09:01)
[2019-03-20] MEDS: metFORMIN 500 MG Tab PO SCH (09:02)
[2019-03-20] MEDS: Potassium Chloride 20 MEQ Tab.ER PO SCH (09:02)
[2019-03-20] MEDS: FLUoxetine 20 MG Cap PO SCH (09:03)
[2019-03-20] MEDS: Rosuvastatin 10 MG Tab PO SCH (09:04)
[2019-03-20] MEDS: Furosemide 40 MG Tab PO SCH (09:04)
[2019-03-20] MEDS: Lisinopril 20 MG Tab PO SCH (09:04)
[2019-03-20] MEDS: Aspirin 81 MG Tab.Chew PO SCH (09:05)
[2019-03-20] MEDS: Metoprolol Succinate 25 MG Tab.ER PO SCH (09:05)
[2019-03-20 09:06] VITALS: BP 120/67
[2019-03-20] MEDS: Nystatin Susp 100,000 Unit/ML 5 ML Oral Syringe PO SCH ×2 (09:06→12:00)
--- NOTE | 2019-03-20 10:29 | PCM.DCSUM1 ---
Discharge Summary - Hospital Course HPI Initial Comments: 63-year-old insulin dependant type 2 diabetic with morbid obesity presented to the emergency room with a 1-1/2 week history of productive cough of green sputum. He's had worsening shortness of breath over the last week. He lives at [facility] for the last year and 4 months because of not being able to perform ADLs. Patient denies any fever or chills. This morning at the [facility] was found to be more short of breath than usual. As his restaurant distress worsened this morning his oxygen saturations dropped into the 80s. He was transported to the emergency room via EMS on 6 L nasal cannula. In the emergency room he was started on antibiotics and given a breathing treatment. Chest x-ray showed a questionable left lower lobe infiltrate with mild pulmonary congestion. C-reactive protein was 18.6, white blood cell count 11,450 with 64% segs and 6 bands. ProBNP was only 147. He was given Levaquin 750 mg IV and Zosyn 4.5 g IV and blood cultures were drawn. Patient was decreased to 5 L of oxygen per nasal cannula with oxygen saturations of 93% or higher. Diagnosis: Stroke: No - Discharge Data Discharge Date: 03/20/19 Discharge Disposition: DC/Tfer to SNF 03 Condition: Good - Discharge Diagnosis/Problem(s) (1) Hypoxemia SNOMED Code(s): 396098052 ICD Code: R09.02 - HYPOXEMIA Status: Acute Current Visit: Yes (2) Pneumonia SNOMED Code(s): 710319643 ICD Code: J18.9 - PNEUMONIA, UNSPECIFIED ORGANISM Status: Acute Current Visit: Yes Qualifiers: Pneumonia type: due to Haemophilus influenzae Laterality: left Lung location: lower lobe of lung Qualified Code(s): J14 - Pneumonia due to Hemophilus influenzae (3) Respiratory failure with hypoxia SNOMED Code(s): 79747595467427214 ICD Code: J96.91 - RESPIRATORY FAILURE, UNSPECIFIED WITH HYPOXIA Status: Acute Current Visit: No Qualifiers: Chronicity: acute Qualified Code(s): J96.01 - Acute respiratory failure with hypoxia (4) Diabetes SNOMED Code(s): 62316282 ICD Code: E11.9 - TYPE 2 DIABETES MELLITUS WITHOUT COMPLICATIONS Status: Chronic Current Visit: No Qualifiers: Diabetes mellitus type: type 2 Diabetes mellitus complication status: with skin complications Diabetes mellitus complication detail: with dermatitis Qualified Code(s): E11.620 - Type 2 diabetes mellitus with diabetic dermatitis (5) Morbid obesity SNOMED Code(s): 095118763 ICD Code: E66.01 - MORBID (SEVERE) OBESITY DUE TO EXCESS CALORIES Status: Chronic Current Visit: No - Patient Summary/Data Consults: Consultations 03/13/19 11:20 OT Evaluation and Treatment [CONS] Routine PT Evaluation and Treatment [CONS] Routine - Patient Instructions Diet: Diabetic Diet Driving: Do Not Drive Showering/Bathing: May Shower Notify Provider of: Fever Other/Special Instructions: You are going home on a lower dose of insulin than when you were admitted. You may need to increase your insulin dose (with the help of your provider) if your blood sugars go up. - Discharge Plan *PRESCRIPTION DRUG MONITORING PROGRAM REVIEWED*: Not Applicable *COPY OF PRESCRIPTION DRUG MONITORING REPORT IN PATIENT YESI: Not Applicable Prescriptions/Med Rec: Albuterol/Ipratropium [DuoNeb 3.0-0.5 MG/3 ML] 3 ml NEB Q4H PRN #120 neb PRN Reason: Shortness Of Breath/wheezing Nystatin [Nystatin Oral Syringe] 500,000 unit PO QID #20 syringe Home Medications: Home Meds Aspirin 81 mg PO DAILY 11/08/15 [History] FLUoxetine [PROzac] 60 mg PO DAILY 11/08/15 [History] Lisinopril 20 mg PO DAILY 11/08/15 [History] Metoprolol Succinate [Toprol XL] 25 mg PO DAILY 11/08/15 [History] Rosuvastatin [Crestor] 10 mg PO DAILY 11/08/15 [History] metFORMIN HCl [Metformin HCl ER] 750 mg PO DAILY 11/08/15 [History] Exenatide Microspheres [Bydureon Pen] 2 mg SUBCUT WEEKLY 03/13/19 [History] FLUoxetine HCl [Fluoxetine HCl] 60 mg PO DAILY 03/13/19 [History] Furosemide [Lasix] 40 mg PO DAILY 03/13/19 [History] Nystatin 1 applic TOP BID PRN 03/13/19 [History] Potassium Chloride [K-Tab ER] 20 meq PO DAILY 03/13/19 [History] Pramoxine HCl/Calamine [Calamine Medicated Lotion] 1 applic TOP BID PRN [History] Triamcinolone Acetonide [Triamcinolone Acetonide 0.1% Crm] 1 applic TOP BID PRN 03/13/19 [History] busPIRone HCl [busPIRone] 30 mg PO BEDTIME 03/13/19 [History] guaiFENesin [Mucinex] 600 mg PO BID PRN 03/13/19 [History] Albuterol/Ipratropium [DuoNeb 3.0-0.5 MG/3 ML] 3 ml NEB Q4H PRN #120 neb [Rx] Insulin Glarg,Human.Rec.Analog [Lantus] 50 unit SUBCUT BEDTIME ml 03/20/19 [Rx] Insulin Lispro [HumaLOG] 0 unit SUBCUT QIDACANDBED vial 03/20/19 [Rx] Insulin Lispro [HumaLOG] 15 unit SUBCUT TIDAC vial 03/20/19 [Rx] Nystatin [Nystatin Oral Syringe] 500,000 unit PO QID #20 syringe 03/20/19 [Rx] Patient Handouts: Bacteremia, Community-Acquired Pneumonia, Adult, [id number] Referrals: Samuel Hoyos MD [Primary Care Provider] - 03/27/19 4:30 pm (Please follow-up with Dr. Hoyos on March 27 at 4:30pm. ) - Discharge Summary/Plan Comment DC Time >30 min.: Yes Discharge Summary/Plan Comment: Admitted with H. influenza pneumonia with hypoxemia. He received 5 days for Levaquin and 8 days of Zosyn. Zosyn was stopped for approximately 12 hours and restarted secondary to positive blood cultures just over 96 hours. Final culture results were positive for Propionibacterium acnes, a likely sink contaminate. Zosyn will be stopped and he with return to [facility] on 2 L NC and as needed DuoNeb. - General Info Date of Service: 03/20/19 Admission Dx/Problem (Free Text: Admission Diagnosis/Problem Admission Diagnosis/Problem Pneumonia Subjective Update: March 14, 2019 Patient had an uneventful night. He is afebrile and has been weaned to 4 L nasal cannula from 5. He is on 2-1/2 L at home both of the day and at night. White count decreased to 9000. March 15, 2019 Patient had an uneventful night. He is still on 4 L, but this morning on 4 L he was 99%. Nursing will wean FiO2 today. His baseline is 2.5 liters per minute. Patient was afebrile overnight. White count is 9000. He did have one episode of hypoglycemia down to 60. Patient had his insulin decreased. March 17, 2019 Patient has been weaned to 2 L nasal cannula. Blood sugars have been stable and patient is doing well overall. Patient is unable to return to [facility] because of availability of oxygen and bariatric walker. March 18, 2019 Patient was afebrile overnight. White count went up slightly. Anaerobic branching gram-positive rods were obtained from his blood culture. Patient was restarted on Zosyn. Patient also has a small area on the right lower abdomen that is indurated and we started warm compresses. March 19, 2019 Patient continues to be afebrile. White count has increased slightly again to 11 ,000. Culture and sensitivity has not been finished. Patient is continuing on Zosyn and O2. March 20, 2019 Blood culture results returned with Propionibacterium acnes which is likely contaminant. IV Zosyn has been stopped. Patient continues to have improvement in symptoms, but continues to be oxygen dependent at 2 L nasal cannula. Patient denies any fever or chills and states he's feeling well. Functional Status: Reports: Pain Controlled - Review of Systems General: Reports: No Symptoms HEENT: Reports: No Symptoms Pulmonary: Reports: No Symptoms Cardiovascular: Reports: No Symptoms Gastrointestinal: Reports: No Symptoms Musculoskeletal: Reports: No Symptoms - Patient Data Vitals - Most Recent: Last Vital Signs Temp 97.5 F 03/20/19 08:59 Pulse 86 03/20/19 09:05 Resp 18 03/20/19 08:59 BP 120/67 03/20/19 09:05 Pulse Ox 95 03/20/19 08:59 Weight - Most Recent: 343 lb 1.6 oz I&O - Last 24 hours: Intake & Output 03/19/19 03/20/19 03/20/19 22:59 06:59 14:59 Intake Total 990 400 180 Balance 990 400 180 Lab Results - Last 24 hrs: Laboratory Results - last 24 hr 03/19/19 03/19/19 03/19/19 Range/Units 11:21 17:08 20:39 WBC (4.23-9.07) K/mm3 RBC (4.63-6.08) M/mm3 Hgb (13.7-17.5) gm/L Hct (40.1-51.0) % MCV (79.0-92.2) fl MCH (25.7-32.2) pg MCHC (32.2-35.5) g/dl RDW Std Deviation (35.1-43.9) fL Plt Count (163-337) K/mm3 MPV (9.4-12.3) fl Neut % (Auto) (34.0-67.9) % Lymph % (Auto) (21.8-53.1) % Trego % (Auto) (5.3-12.2) % Eos % (Auto) (0.8-7.0) Baso % (Auto) (0.1-1.2) % Neut # (Auto) (1.78-5.38) K/mm3 Lymph # (Auto) (1.32-3.57) K/mm3 Trego # (Auto) (0.30-0.82) K/mm3 Eos # (Auto) (0.04-0.54) K/mm3 Baso # (Auto) (0.01-0.08) K/mm3 Sodium (136-145) mEq/L Potassium (3.5-5.1) mEq/L Chloride (98-107) mEq/L Carbon Dioxide (21-32) mEq/L Anion Gap (5-15) BUN (7-18) mg/dL Creatinine (0.7-1.3) mg/dL Est Cr Clr Drug Dosing mL/min Estimated GFR (MDRD) (>60) mL/min BUN/Creatinine Ratio (14-18) Glucose (80-115) mg/dL POC Glucose 107 143 H 143 H (80-115) mg/dL Calcium (8.5-10.1) mg/dL Magnesium (1.8-2.4) mg/dl C-Reactive Protein (<1.0) mg/dL 03/20/19 03/20/19 Range/Units 05:38 05:38 WBC 10.00 H (4.23-9.07) K/mm3 RBC 5.09 (4.63-6.08) M/mm3 Hgb 14.2 (13.7-17.5) gm/L Hct 45.4 (40.1-51.0) % MCV 89.2 (79.0-92.2) fl MCH 27.9 (25.7-32.2) pg MCHC 31.3 L (32.2-35.5) g/dl RDW Std Deviation 48.2 H (35.1-43.9) fL Plt Count 253 (163-337) K/mm3 MPV 10.9 (9.4-12.3) fl Neut % (Auto) 71.5 H (34.0-67.9) % Lymph % (Auto) 16.4 L (21.8-53.1) % Trego % (Auto) 10.3 (5.3-12.2) % Eos % (Auto) 1.4 (0.8-7.0) Baso % (Auto) 0.2 (0.1-1.2) % Neut # (Auto) 7.15 H (1.78-5.38) K/mm3 Lymph # (Auto) 1.64 (1.32-3.57) K/mm3 Trego # (Auto) 1.03 H (0.30-0.82) K/mm3 Eos # (Auto) 0.14 (0.04-0.54) K/mm3 Baso # (Auto) 0.02 (0.01-0.08) K/mm3 Sodium 141 (136-145) mEq/L Potassium 4.3 (3.5-5.1) mEq/L Chloride 103 (98-107) mEq/L Carbon Dioxide 33 H (21-32) mEq/L Anion Gap 9.3 (5-15) BUN 18 (7-18) mg/dL Creatinine 0.8 (0.7-1.3) mg/dL Est Cr Clr Drug Dosing 97.59 mL/min Estimated GFR (MDRD) > 60 (>60) mL/min BUN/Creatinine Ratio 22.5 H (14-18) Glucose 125 H (80-115) mg/dL POC Glucose (80-115) mg/dL Calcium 9.3 (8.5-10.1) mg/dL Magnesium 2.0 (1.8-2.4) mg/dl C-Reactive Protein 1.7 H* (<1.0) mg/dL AYE Results - Last 24 hrs: Microbiology 03/13/19 05:10 Aerobic Blood Culture - Final Blood NO GROWTH AFTER 7 DAYS Anaerobic Blood Culture - Final NO GROWTH AFTER 7 DAYS 03/13/19 04:25 Aerobic Blood Culture - Final Blood NO GROWTH AFTER 7 DAYS Anaerobic Blood Culture - Preliminary Propionibacterium Acnes 03/13/19 16:03 Legionella Urinary Antigen - Final Urine 03/13/19 16:03 Streptococcus pneumoniae Antigen (M - Final Urine Med Orders - Current: Current Medications Acetaminophen (Tylenol) 650 mg PO Q4H PRN PRN Reason: Pain (Mild 1-3)/fever Albuterol/Ipratropium (Duoneb 3.0-0.5 Mg/3 Ml) 3 ml NEB Q4H PRN PRN Reason: Shortness Of Breath/wheezing Last Admin: 03/15/19 16:21 Dose: 3 ml Aspirin (Aspirin) 81 mg PO DAILY [facility] Last Admin: 03/20/19 09:05 Dose: 81 mg Buspirone HCl (Buspar) 30 mg PO BEDTIME [facility] Last Admin: 03/19/19 20:17 Dose: 30 mg Enoxaparin Sodium (Lovenox) 40 mg SUBCUT DAILY [facility] Last Admin: 03/20/19 09:01 Dose: 40 mg Fluoxetine HCl (Prozac) 60 mg PO DAILY [facility] Last Admin: 03/20/19 09:03 Dose: 60 mg Furosemide (Lasix) 40 mg PO DAILY [facility] Last Admin: 03/20/19 09:04 Dose: 40 mg Guaifenesin (Mucinex) 600 mg PO BID PRN PRN Reason: Cough Last Admin: 03/15/19 21:31 Dose: 600 mg Insulin Glargine (Lantus) 50 unit SUBCUT BEDTIME [facility] Last Admin: 03/19/19 21:29 Dose: 50 units Insulin Human Lispro (Humalog) 15 unit SUBCUT TIDAC [facility] Last Admin: 03/20/19 08:57 Dose: 15 units Insulin Human Lispro (Humalog) 0 unit SUBCUT QIDACANDBED [facility]; Protocol Last Admin: 03/20/19 07:33 Dose: Not Given Lisinopril (Prinivil) 20 mg PO DAILY [facility] Last Admin: 03/20/19 09:04 Dose: 20 mg Metformin HCl (Glucophage) 750 mg PO DAILY [facility] Last Admin: 03/20/19 09:02 Dose: 750 mg Metoprolol Succinate (Toprol Xl) 25 mg PO DAILY [facility] Last Admin: 03/20/19 09:05 Dose: 25 mg Nystatin (Nystatin Oral Syringe) 500,000 unit PO QID [facility] Last Admin: 03/20/19 09:06 Dose: 500,000 unit Ondansetron HCl (Zofran Odt) 4 mg PO Q4H PRN PRN Reason: nausea, able to take PO Potassium Chloride (Klor-Con M20) 20 meq PO DAILY [facility] Last Admin: 03/20/19 09:02 Dose: 20 meq Rosuvastatin Calcium (Crestor) 10 mg PO DAILY [facility] Last Admin: 03/20/19 09:04 Dose: 10 mg Sodium Chloride (Saline Flush) 10 ml FLUSH ASDIRECTED PRN PRN Reason: Keep Vein Open Last Admin: 03/13/19 04:33 Dose: 10 ml Discontinued Medications Albuterol/Ipratropium (Duoneb 3.0-0.5 Mg/3 Ml) 3 ml NEB ONETIME ONE Stop: 03/13/19 04:20 Last Admin: 03/13/19 04:25 Dose: 3 ml Piperacillin Sod/Tazobactam (Sod 4.5 gm/ Sodium Chloride) 100 mls @ 25 mls/hr IV ONETIME ONE Stop: 03/13/19 08:52 Last Admin: 03/13/19 06:44 Dose: 25 mls/hr Levofloxacin/Dextrose 750 mg/ (Premix) 150 mls @ 100 mls/hr IV ONETIME ONE Stop: 03/13/19 06:23 Last Admin: 03/13/19 05:13 Dose: 100 mls/hr Piperacillin Sod/Tazobactam (Sod 4.5 gm/ Sodium Chloride) 100 mls @ 25 mls/hr IV Q8H [facility] Last Admin: 03/16/19 09:27 Dose: Not Given Sodium Chloride (Normal Saline) Confirm Administered Dose 100 mls @ as directed .ROUTE .STK-MED ONE Stop: 03/15/19 15:40 Last Admin: 03/15/19 18:15 Dose: Not Given Piperacillin Sod/Tazobactam (Sod 4.5 gm/ Sodium Chloride) 100 mls @ 25 mls/hr IV Q6H [facility] Last Admin: 03/17/19 12:04 Dose: 25 mls/hr Piperacillin Sod/Tazobactam (Sod 4.5 gm/ Sodium Chloride) 100 mls @ 25 mls/hr IV Q6H [facility] Stop: 03/19/19 16:00 Last Admin: 03/19/19 12:21 Dose: 25 mls/hr Piperacillin Sod/Tazobactam (Sod 4.5 gm/ Sodium Chloride) 100 mls @ 25 mls/hr IV Q8H [facility] Last Admin: 03/20/19 03:30 Dose: 25 mls/hr Insulin Glargine (Lantus) 84 unit SUBCUT DAILY [facility] Insulin Glargine (Lantus) 80 unit SUBCUT BEDTIME [facility] Insulin Glargine (Lantus) 60 unit SUBCUT BEDTIME [facility] Last Admin: 03/13/19 20:59 Dose: 60 units Insulin Human Lispro (Humalog) 0 unit SUBCUT QIDACANDBED [facility]; Protocol Last Admin: 03/14/19 17:09 Dose: Not Given Insulin Human Lispro (Humalog) 25 unit SUBCUT TIDAC [facility] Insulin Human Lispro (Humalog) 20 unit SUBCUT TIDAC [facility] Last Admin: 03/14/19 17:09 Dose: Not Given Levofloxacin (Levaquin) 750 mg PO Q24H [facility] Stop: 03/17/19 11:00 Last Admin: 03/17/19 08:10 Dose: 750 mg Lisinopril (Prinivil) 20 mg PO ONETIME ONE Stop: 03/13/19 05:04 Last Admin: 03/13/19 05:15 Dose: 20 mg Metoprolol Succinate (Toprol Xl) 50 mg PO ONETIME ONE Stop: 03/13/19 05:05 Last Admin: 03/13/19 05:16 Dose: 50 mg Non-Formulary Medication (Exenatide Microspheres [Bydureon Pen]) 2 mg SUBCUT WEEKLY LUZ ELENA - Exam Quality Assessment: Reports: Supplemental Oxygen General: Reports: Alert, Oriented HEENT: Reports: Pupils Equal, Pupils Reactive Neck: Reports: Supple Lungs: Reports: Normal Respiratory Effort, Decreased Breath Sounds Cardiovascular: Reports: Regular Rate, Regular Rhythm GI/Abdominal Exam: Normal Bowel Sounds, Soft, Non-Tender, No Organomegaly, Other (morbidly obese) Extremities: Normal Inspection, Pedal Edema Skin: Reports: Warm, Dry, Intact Neurological: Reports: No New Focal Deficit Psy/Mental Status: Reports: Alert, Normal Affect, Normal Mood
== END 2019-03-20 12:54 | DRG 193 ==
LOC: JD.ED 04:02 → JD.MS 07:36
PROVIDERS: ADMIT Family Medicine; ATTEND Family Medicine
DX: J14 Pneumonia due to Hemophilus influenzae (principal); J96.01 Acute respiratory failure with hypoxia; Z68.42 Body mass index [BMI] 45.0-49.9, adult; R05 Cough; E78.00 Pure hypercholesterolemia, unspecified; R06.02 Shortness of breath; F41.9 Anxiety disorder, unspecified; R62.50 Unspecified lack of expected normal physiological development in childhood; F32.9 Major depressive disorder, single episode, unspecified; E11.620 Type 2 diabetes mellitus with diabetic dermatitis; E11.649 Type 2 diabetes mellitus with hypoglycemia without coma; E66.01 Morbid (severe) obesity due to excess calories; E11.9 Type 2 diabetes mellitus without complications; I10 Essential (primary) hypertension; Z98.49 Cataract extraction status, unspecified eye; Z79.4 Long term (current) use of insulin; Z79.82 Long term (current) use of aspirin; Z79.899 Other long term (current) drug therapy; G47.30 Sleep apnea, unspecified; R32 Unspecified urinary incontinence; R06.2 Wheezing; R42 Dizziness and giddiness; R06.82 Tachypnea, not elsewhere classified; R06.03 Acute respiratory distress; R60.9 Edema, unspecified; R09.02 Hypoxemia; J18.1 Lobar pneumonia, unspecified organism
CPT/HCPCS: 36415; 36600; 71045; 80053; 83605; 83880; 85007; 85027; 86140; 87040 ×2; 87070; 87076; 87077; 87106; 87184; 87205; 93005; 94640; 96365; 96367; 99285; A9270 ×2; J1956; J2543; J7030; 80048; 80061; 82803; 82962; 83036; 83735; 85025; 87486; 87581; 87632; 87641; 87798; 87899; 93010; 94760; 94761; 97116-GP; 97162-GP; 97165-GO; 97530-GP; 99283; J1650; J1815-GY; J7620-GY

== ENCOUNTER 2019-07-29 17:18 | Inpatient (IN) | payer MEDICARE, OTHER, MEDICAID ==
[~2019-07-29 17:18] MED LIST: Succinylcholine 200 MG/10 ML MDV ONE
--- NOTE | 2019-07-29 17:23 | EDM.PDOC ---
ED HPI GENERAL MEDICAL PROBLEM - General Chief Complaint: Respiratory Problem Stated Complaint: [facility] Time Seen by Provider: 07/29/19 17:23 Source of Information: Reports: Patient, EMS, Long Term Records History Limitations: Reports: No Limitations, Respiratory Distress - History of Present Illness INITIAL COMMENTS - FREE TEXT/NARRATIVE: 62-year-old very morbidly obese male presents the ED due to shortness of breath. Apparently he is a resident at the [facility] [place]. Staff identified that he had very low O2 sats this afternoon in spite of oxygen therapy. Sats were in the low 80s. He is normally on 2 L/m by nasal prongs. Patient was placed on a nonrebreather at 8-10 L/min en route to [place] per philosophy professor. They achieved O2 sats of around 89%. Patient is alert oriented and able to answer questions appropriately. He is in moderate respiratory distress. He has a history of congestive heart failure and sleep apnea. Type 2 diabets controlled with oral med s and insulin. He reports medications were changed around about 2 weeks ago but he doesn't know what was changed. He states some medicines were taken away and others were introduced. Very warm to palpation suggesting an underlying febrile illness. He states he started to develop shortness of breath last night and was up all night long due to dyspnea. Denies any obvious chills. Patient is a type II diabetic controlled with insulin and oral medications. He denies any sputum production. He is a full code Apparently is mentally challenged and could not look after himself on his own any longer and this is the primary reason that he was admitted to the [facility]. He is unmarried and his sister has power of lead former. Onset: Gradual Onset Date: 07/28/19 Duration: Hour(s): (Last evening became more short of breath which worsened overnight.), Getting Worse Location: Reports: Chest (Increasing dyspnea with associated hypoxia.) Quality: Reports: Other Severity: Severe (Shortness of breath) Improves with: Reports: Other (Improves with oxygen supplementation.) Worsens with: Reports: Movement Context: Reports: Other (Came on spontaneously.). Denies: Activity, Exercise, Lifting, Sick Contact, Trauma Associated Symptoms: Reports: Diaphoresis, Fever/Chills, Malaise. Denies: No Other Symptoms, Confusion, Chest Pain, Cough, cough w sputum Treatments PHOTO FINISHER: Reports: Other (see below) (None.) - Related Data Allergies Allergy/AdvReac Type Severity Reaction Status Date / Time No Known Allergies Allergy Verified 07/29/19 17:27 Home Meds: Home Meds Aspirin 81 mg PO DAILY 11/08/15 [History] FLUoxetine [PROzac] 60 mg PO DAILY 11/08/15 [History] Metoprolol Succinate [Toprol XL] 25 mg PO DAILY 11/08/15 [History] Rosuvastatin [Crestor] 10 mg PO DAILY 11/08/15 [History] metFORMIN HCl [Metformin HCl ER] 2,000 mg PO DAILY 11/08/15 [History] Furosemide [Lasix] 40 mg PO DAILY 03/13/19 [History] Nystatin 1 applic TOP BID PRN 03/13/19 [History] Potassium Chloride [K-Tab ER] 20 meq PO DAILY 03/13/19 [History] Triamcinolone Acetonide [Triamcinolone Acetonide 0.1% Crm] 1 applic TOP BID PRN 03/13/19 [History] busPIRone HCl [busPIRone] 30 mg PO BEDTIME 03/13/19 [History] Albuterol/Ipratropium [DuoNeb 3.0-0.5 MG/3 ML] 3 ml NEB Q4H PRN #120 neb [Rx] Insulin Lispro [HumaLOG] 0 unit SUBCUT QIDACANDBED vial 03/20/19 [Rx] Insulin Lispro [HumaLOG] 15 unit SUBCUT TIDAC vial 03/20/19 [Rx] Nystatin [Nystatin Oral Syringe] 500,000 unit PO QID #20 syringe 03/20/19 [Rx] Insulin Glarg,Human.Rec.Analog [Lantus] 55 unit SUBCUT BEDTIME 07/29/19 [History ] OXcarbazepine [Trileptal] 300 mg PO BID 07/29/19 [History] Past Medical History HEENT History: Reports: Cataract Other HEENT History: Wears glasses Cardiovascular History: Reports: Heart Failure, Hypertension Other Cardiovascular History: Cardiomegaly Respiratory History: Reports: COPD, Sleep Apnea Other Respiratory History: uses CPAP Genitourinary History: Reports: Urinary Incontinence Neurological History: Reports: Seizure (He is on Trileptal 300 mg twice a day.) Psychiatric History: Reports: Anxiety, Depression, Developmental Delay Endocrine/Metabolic History: Reports: Diabetes, Type II (Controlled with oral medications and insulin.), Obesity/BMI 30+ Dermatologic History: Reports: Cellulitis Other Dermatologic History: xerosis cutis - Past Surgical History HEENT Surgical History: Reports: Cataract Surgery Social & Family History - Family History Family Medical History: Unobtainable Other HEENT Family History: Patient unsure of family medical history - Living Situation & Occupation Living situation: Reports: Extended Care Facility (Lives in [facility].) Occupation: Disabled ED ROS GENERAL - Review of Systems Review Of Systems: See Below Constitutional: Reports: Fever (Patient definitely feels febrile to me. He was not aware of fever and denies any chills. Temperature), Malaise, Weakness ( is recorded at 37.7 but he feels warmer than this.), Fatigue, Decreased Appetite HEENT: Reports: No Symptoms Respiratory: Reports: Shortness of Breath, Other (Hypoxic with sats of 82% on room air.). Denies: Wheezing, Pleuritic Chest Pain, Cough, Sputum, Hemoptysis Cardiovascular: Reports: Blood Pressure Problem, Dyspnea on Exertion ( Chronically), Edema (Chronically in both lower extremities.), Lightheadedness, Orthopnea. Denies: Chest Pain, Claudication Endocrine: Reports: Fatigue, High Glucose GI/Abdominal: Reports: No Symptoms : Reports: Frequency, Incontinence (Apparently is incontinent of urine.) Musculoskeletal: Reports: Other (Cannot walk due to weakness in his lower extremities.) Skin: Reports: Other (Chronic venous stasis dermatitis both lower extremities with history of ulcers on both lower extremities.) Neurological: Reports: No Symptoms Psychiatric: Reports: No Symptoms Hematologic/Lymphatic: Reports: No Symptoms Immunologic: Reports: No Symptoms ED EXAM, GENERAL - Physical Exam Exam: See Below Exam Limited By: Respiratory Distress (Moderate spine Asif distress.) General Appearance: Alert, Moderate Distress, Other (He is able to talk and senses. He is alert and oriented.) Eye Exam: Bilateral Eye: Normal Inspection (No scleral icterus and no peripheral pallor.) Ears: Normal TMs Throat/Mouth: Other Head: Atraumatic, Normocephalic (Tongue is mildly dry and coated) Neck: Normal Inspection, Supple, Non-Tender, Full Range of Motion, Carotid Bruit. No: Lymphadenopathy (L), Lymphadenopathy (R) Respiratory/Chest: Respiratory Distress (Tachypnea 23 28/m. Sats of 82% on room air. Achieving 87% on 10 L.), Decreased Breath Sounds (He is morbidly obese which decreases ability to hear markedly decreased air entry to both lower lung bases.). No: Rhonchi, Wheezing ( respiratory sounds. I feel there are a few crackles in the left lung base. No wheezes identified.) Cardiovascular: Normal Peripheral Pulses, Regular Rate, Rhythm, No Gallop, No Murmur, No Rub. No: No Edema Peripheral Pulses: 1+: Posterior Tibial (L), Posterior Tibial (R), Dorsalis Pedis (L), Dorsalis Pedis (R) GI/Abdominal: Distended, Other (Mild tippy to percussion upper abdomen. Abdominal girth limits ability to palpate any solid organs are test for hernia.) Extremities: Pedal Edema (The skin of both lower extremities is showing signs of chronic venous insufficiency and stasis dermatitis. There are currently no open ulcerations or losing.) Neurological: Alert ( There is 1-2+ pitting edema to mid shaft of the tib-fib bilaterally.), Oriented, CN II-XII Intact, Normal Cognition Psychiatric: Normal Affect Skin Exam: Warm, Dry, Intact, Normal Color, No Rash, Other (Patient clinically is very warm to palpation.) EKG INTERPRETATION EKG Date: 07/29/19 Time: 17:35 Rhythm: Other Rate (Beats/Min): 87 [place]: LAD-Left [place] Deviation (Mild left axis deviation of -5) P-Wave: Variable (It is variable the only be that she can see P waves well is in lead 3 and they are inverted.) QRS: Other (Severe decreased voltage in both the limb and precordial leads with baseline irregularity makes it extremely difficult to ascertain the rhythm to be sinus. There is a Q-wave in V1 and near Q-wave in V2 consider old anteroseptal myocardial infarction.) ST-T: Other (Irregular and flattened in many leads. Particularly aVL V2) QT: Prolonged (Minimally prolonged) EKG Interpretation Comments: Abnormal ECG Course - Vital Signs Last Recorded V/S: Last Vital Signs Temp 36.8 C 07/29/19 17:54 Pulse 88 07/29/19 17:54 Resp 25 H 07/29/19 17:54 BP 127/87 07/29/19 17:54 Pulse Ox 100 07/29/19 17:54 - Orders/Labs/Meds Orders: Active Orders 24 hr Category Date Time Status Blood Glucose Check, Bedside [RC] ONETIME Care 07/29/19 17:26 Active EKG Documentation Completion [RC] STAT Care 07/29/19 17:24 Active Martinez Catheter Insertion [Insert Urinary Catheter] [OM. Care 07/29/19 17:45 Ordered PC] Q24H Oxygen Therapy [RC] ASDIRECTED Care 07/29/19 17:25 Active Peripheral IV Care [RC] . DIRECTED Care 07/29/19 17:27 Active RT BiPAP/CPAP [RC] ASDIRECTED Care 07/29/19 17:50 Active Urinary Catheter Assessment [RC] ASDIRECTED Care 07/29/19 17:46 Active Chest 1V Frontal [CR] Stat Exams 07/29/19 17:24 Taken CULTURE BLOOD [BC] Stat Lab 07/29/19 17:40 Received CULTURE BLOOD [BC] Stat Lab 07/29/19 17:58 Received Azithromycin [Zithromax] 1,000 mg Med 07/29/19 19:08 Active Sodium Chloride 0.9% [Normal Saline] 500 ml IV ONETIME Sodium Chloride 0.9% [Saline Flush] Med 07/29/19 17:27 Active 10 ml FLUSH ASDIRECTED PRN cefTRIAXone [Rocephin] 2 gm Med 07/29/19 19:15 Active Sodium Chloride 0.9% [Normal Saline] 100 ml IV Q24H Blood Culture x2 Reflex Set [OM.PC] Stat Oth 07/29/19 17:26 Ordered Peripheral IV Insertion Adult [OM.PC] Stat Oth 07/29/19 17:26 Ordered Medication Orders Azithromycin 1,000 mg/ Sodium (Chloride) 500 mls @ 250 mls/hr IV ONETIME ONE Stop: 07/29/19 21:07 Ceftriaxone Sodium 2 gm/ (Sodium Chloride) 100 mls @ 200 mls/hr IV Q24H LUZ ELENA Sodium Chloride (Saline Flush) 10 ml FLUSH ASDIRECTED PRN PRN Reason: Keep Vein Open Last Admin: 07/29/19 17:39 Dose: 10 ml Labs: Laboratory Tests 07/29/19 07/29/19 07/29/19 Range/Units 17:26 17:32 17:40 WBC 7.01 (4.23-9.07) K/mm3 RBC 5.15 (4.63-6.08) M/mm3 Hgb 14.6 (13.7-17.5) gm/dl Hct 46.5 (40.1-51.0) % MCV 90.3 (79.0-92.2) fl MCH 28.3 (25.7-32.2) pg MCHC 31.4 L (32.2-35.5) g/dl RDW Std Deviation 48.7 H (35.1-43.9) fL Plt Count 180 (163-337) K/mm3 MPV 11.3 (9.4-12.3) fl Neutrophils % (Manual) 60 (40-60) % Band Neutrophils % 0 (0-10) % Lymphocytes % (Manual) 35 (20-40) % Atypical Lymphs % 0 % Monocytes % (Manual) 3 (2-10) % Eosinophils % (Manual) 2 (0.8-7.0) % Basophils % (Manual) 0 L (0.2-1.2) Platelet Estimate Adequate Plt Morphology Comment Normal RBC Morph Comment Normal PT (9.7-12.0) SECONDS INR APTT (22-31) SECONDS Puncture Site Rt radial ABG pH 7.39 (7.35-7.45) ABG pCO2 51.3 H (35.0-45.0) mmHg ABG pO2 166.0 H* (80.0-100.0) mmHg ABG HCO3 30.3 H (22.0-26.0) meq/L ABG O2 Saturation 97.8 H (96.0-97.0) % ABG Base Excess 4.5 H (-2-2.0) Cheo Test Positive A-a Gradient 128 mmHg O2 Delivery Device Bipap FiO2 0.00 L (21.00-100.00) % PEEP 7.0 cmH20 Pressure Support 14.0 cmH2O Sodium (136-145) mEq/L Potassium (3.5-5.1) mEq/L Chloride (98-107) mEq/L Carbon Dioxide (21-32) mEq/L Anion Gap (5-15) BUN (7-18) mg/dL Creatinine (0.7-1.3) mg/dL Est Cr Clr Drug Dosing mL/min Estimated GFR (MDRD) (>60) mL/min BUN/Creatinine Ratio (14-18) Glucose (80-115) mg/dL POC Glucose 198 H (80-115) mg/dL Lactic Acid (0.4-2.0) mmol/L Calcium (8.5-10.1) mg/dL Magnesium (1.8-2.4) mg/dl Total Bilirubin (0.2-1.0) mg/dL AST (15-37) U/L ALT (16-63) U/L Alkaline Phosphatase (46-116) U/L CK-MB (CK-2) (0-3.6) ng/ml Troponin I (0.00-0.056) ng/mL C-Reactive Protein (<1.0) mg/dL NT-Pro-B Natriuret Pep (0-125) pg/mL Total Protein (6.4-8.2) g/dl Albumin (3.4-5.0) g/dl Globulin gm/dL Albumin/Globulin Ratio (1-2) Urine Color (Yellow) Urine Appearance (Clear) Urine pH (5.0-8.0) Ur Specific [place] (1.005-1.030) Urine Protein (Negative) Urine Glucose (UA) (Negative) Urine Ketones (Negative) Urine Occult Blood (Negative) Urine Nitrite (Negative) Urine Bilirubin (Negative) Urine Urobilinogen (0.2-1.0) Ur Leukocyte Esterase (Negative) Urine RBC (0-5) /hpf Urine WBC (0-5) /hpf Ur Squamous Epith Cells (0-5) /hpf Urine Bacteria (FEW) /hpf Urine Mucus (FEW) /hpf 07/29/19 07/29/19 07/29/19 Range/Units 17:40 17:40 17:40 WBC (4.23-9.07) K/mm3 RBC (4.63-6.08) M/mm3 Hgb (13.7-17.5) gm/dl Hct (40.1-51.0) % MCV (79.0-92.2) fl MCH (25.7-32.2) pg MCHC (32.2-35.5) g/dl RDW Std Deviation (35.1-43.9) fL Plt Count (163-337) K/mm3 MPV (9.4-12.3) fl Neutrophils % (Manual) (40-60) % Band Neutrophils % (0-10) % Lymphocytes % (Manual) (20-40) % Atypical Lymphs % % Monocytes % (Manual) (2-10) % Eosinophils % (Manual) (0.8-7.0) % Basophils % (Manual) (0.2-1.2) Platelet Estimate Plt Morphology Comment RBC Morph Comment PT (9.7-12.0) SECONDS INR APTT (22-31) SECONDS Puncture Site ABG pH (7.35-7.45) ABG pCO2 (35.0-45.0) mmHg ABG pO2 (80.0-100.0) mmHg ABG HCO3 (22.0-26.0) meq/L ABG O2 Saturation (96.0-97.0) % ABG Base Excess (-2-2.0) Cheo Test A-a Gradient mmHg O2 Delivery Device FiO2 (21.00-100.00) % PEEP cmH20 Pressure Support cmH2O Sodium 145 (136-145) mEq/L Potassium 4.5 (3.5-5.1) mEq/L Chloride 106 (98-107) mEq/L Carbon Dioxide 34 H (21-32) mEq/L Anion Gap 9.5 (5-15) BUN 20 H (7-18) mg/dL Creatinine 0.8 (0.7-1.3) mg/dL Est Cr Clr Drug Dosing 103.74 mL/min Estimated GFR (MDRD) > 60 (>60) mL/min BUN/Creatinine Ratio 25.0 H (14-18) Glucose 221 H (80-115) mg/dL POC Glucose (80-115) mg/dL Lactic Acid 1.8 (0.4-2.0) mmol/L Calcium 9.3 (8.5-10.1) mg/dL Magnesium 1.9 (1.8-2.4) mg/dl Total Bilirubin 0.3 (0.2-1.0) mg/dL AST 14 L (15-37) U/L ALT 36 (16-63) U/L Alkaline Phosphatase 94 (46-116) U/L CK-MB (CK-2) 1.8 (0-3.6) ng/ml Troponin I < 0.017 (0.00-0.056) ng/mL C-Reactive Protein 3.7 H* (<1.0) mg/dL NT-Pro-B Natriuret Pep 118 (0-125) pg/mL Total Protein 7.3 (6.4-8.2) g/dl Albumin 3.3 L (3.4-5.0) g/dl Globulin 4.0 gm/dL Albumin/Globulin Ratio 0.8 L (1-2) Urine Color (Yellow) Urine Appearance (Clear) Urine pH (5.0-8.0) Ur Specific [place] (1.005-1.030) Urine Protein (Negative) Urine Glucose (UA) (Negative) Urine Ketones (Negative) Urine Occult Blood (Negative) Urine Nitrite (Negative) Urine Bilirubin (Negative) Urine Urobilinogen (0.2-1.0) Ur Leukocyte Esterase (Negative) Urine RBC (0-5) /hpf Urine WBC (0-5) /hpf Ur Squamous Epith Cells (0-5) /hpf Urine Bacteria (FEW) /hpf Urine Mucus (FEW) /hpf 07/29/19 07/29/19 Range/Units 17:58 18:30 WBC (4.23-9.07) K/mm3 RBC (4.63-6.08) M/mm3 Hgb (13.7-17.5) gm/dl Hct (40.1-51.0) % MCV (79.0-92.2) fl MCH (25.7-32.2) pg MCHC (32.2-35.5) g/dl RDW Std Deviation (35.1-43.9) fL Plt Count (163-337) K/mm3 MPV (9.4-12.3) fl Neutrophils % (Manual) (40-60) % Band Neutrophils % (0-10) % Lymphocytes % (Manual) (20-40) % Atypical Lymphs % % Monocytes % (Manual) (2-10) % Eosinophils % (Manual) (0.8-7.0) % Basophils % (Manual) (0.2-1.2) Platelet Estimate Plt Morphology Comment RBC Morph Comment PT 10.7 (9.7-12.0) SECONDS INR 0.98 APTT 29 (22-31) SECONDS Puncture Site ABG pH (7.35-7.45) ABG pCO2 (35.0-45.0) mmHg ABG pO2 (80.0-100.0) mmHg ABG HCO3 (22.0-26.0) meq/L ABG O2 Saturation (96.0-97.0) % ABG Base Excess (-2-2.0) Cheo Test A-a Gradient mmHg O2 Delivery Device FiO2 (21.00-100.00) % PEEP cmH20 Pressure Support cmH2O Sodium (136-145) mEq/L Potassium (3.5-5.1) mEq/L Chloride (98-107) mEq/L Carbon Dioxide (21-32) mEq/L Anion Gap (5-15) BUN (7-18) mg/dL Creatinine (0.7-1.3) mg/dL Est Cr Clr Drug Dosing mL/min Estimated GFR (MDRD) (>60) mL/min BUN/Creatinine Ratio (14-18) Glucose (80-115) mg/dL POC Glucose (80-115) mg/dL Lactic Acid (0.4-2.0) mmol/L Calcium (8.5-10.1) mg/dL Magnesium (1.8-2.4) mg/dl Total Bilirubin (0.2-1.0) mg/dL AST (15-37) U/L ALT (16-63) U/L Alkaline Phosphatase (46-116) U/L CK-MB (CK-2) (0-3.6) ng/ml Troponin I (0.00-0.056) ng/mL C-Reactive Protein (<1.0) mg/dL NT-Pro-B Natriuret Pep (0-125) pg/mL Total Protein (6.4-8.2) g/dl Albumin (3.4-5.0) g/dl Globulin gm/dL Albumin/Globulin Ratio (1-2) Urine Color Yellow (Yellow) Urine Appearance Clear (Clear) Urine pH 6.0 (5.0-8.0) Ur Specific [place] 1.020 (1.005-1.030) Urine Protein Negative (Negative) Urine Glucose (UA) Negative (Negative) Urine Ketones Negative (Negative) Urine Occult Blood Trace-intact H (Negative) Urine Nitrite Negative (Negative) Urine Bilirubin Negative (Negative) Urine Urobilinogen 0.2 (0.2-1.0) Ur Leukocyte Esterase Negative (Negative) Urine RBC 5-10 H (0-5) /hpf Urine WBC 0-5 (0-5) /hpf Ur Squamous Epith Cells 0-5 (0-5) /hpf Urine Bacteria Occasional (FEW) /hpf Urine Mucus Rare (FEW) /hpf Meds: Medications Generic Name Dose Route Start Last Admin Trade Name Freq PRN Reason Stop Dose Admin Azithromycin 1,000 mg/ Sodium 500 mls @ 250 mls/hr 07/29/19 19:08 Chloride IV 07/29/19 21:07 ONETIME ONE Ceftriaxone Sodium 2 gm/ 100 mls @ 200 mls/hr 07/29/19 19:15 Sodium Chloride IV Q24H LUZ ELENA Sodium Chloride 10 ml 07/29/19 17:27 07/29/19 17:39 Saline Flush FLUSH 10 ml ASDIRECTED PRN Administration Keep Vein Open Discontinued Medications Generic Name Dose Route Start Last Admin Trade Name Freq PRN Reason Stop Dose Admin Acetaminophen 975 mg 07/29/19 17:28 07/29/19 17:39 Tylenol PO 07/29/19 17:29 975 mg NOW ONE Administration Furosemide 60 mg 07/29/19 17:28 07/29/19 17:39 Lasix IVPUSH 07/29/19 17:29 60 mg NOW ONE Administration Lidocaine HCl 10 ml 07/29/19 17:46 07/29/19 17:48 Xylocaine 2% Jelly MUCMEM 07/29/19 17:47 10 ml ONETIME ONE Administration - Radiology Interpretation Free Text/Narrative:: 63-year-old male who is mildly mentally handicapped presents to the ED due to respiratory distress and suspect failure. O2 sats only 82% on room air. He is morbidly obese. He is a type II diabetic controlled with insulin and oral medications. Blood sugar is 198 at the bedside. He states that he's been short of breath overnight and worse as the day has gone on today. Clinically he is markedly febrile on examination. He did not know this. Medics placed him on a nonrebreather mask at 8-10 L/m because of O2 sats of only 80% of the longterm. His hands are fairly cool to touch and therefore the pulse oximeter is not reading accurately. Gating 87% on [address] him on BiPAP at 14/7. FiO2 was started 50%. ABGs will be obtained. Saline lock will be started he will be given Lasix 60 mg IV as I can hear a few rales in his left base. He will have a complete septic workup. He will follow Martinez catheter inserted since he is incontinent of urine and cannot walk. Given Tylenol 975 mg orally for fever relief. - Re-Assessments/Exams Free Text/Narrative Re-Assessment/Exam: 07/29/19 17:49 doing well on BiPAP. Achieving sats of 98%. FiO2 will be decreased to 40%. Heart rate may remains 90. 07/29/19 18:02 initial blood gases show pH of 7.39. PCO2 is slightly elevated at 51.3 indicating mild respiratory failure due to hypercarbia. He is a CO2 retainer likely. PO2 was 166. The FiO2 on the BiPAP was reduced from 50-40%. Sats were 97.8%. 07/29/19 18:32 Initial white count is normal at 7.01. Differential shows 60% neutrophils and no band cells. Hemoglobin is 14.6 with hematocrit of 46.5 platelet count 180,000. PT is 10.7 with an INR of 0.98. PTT is 29. Sodium is 145 with potassium of 4.5. Chloride is 106 bicarbonate 34. And a gap is 9.5. Creatinine was 0.8 with a GFR greater than 60. Glucose was 221 he was 198 at the bedside. Lactic acid is 1.8. Calcium is 9.3. Magnesium 1.9. Total bilirubin is 0.3 AST is 14 with an ALT of 36. Alkaline phosphatase is 94. CK-MB fraction 1.8 with a troponin I of less than 0.017. C-reactive protein is mildly elevated 3.7. BNP is only 118. Total protein is 7.3 albumin 3.3. 07/29/19 18:45: Chest x-ray done portably reveals marked cardiomegaly and diffuse pulmonary vascular congestion both lower lobes and I think a component of pulmonary fibrosis as well. On comparison to previous films done in January of this year the congestion pattern is very similar. Is difficult for me to correlate the BNP of only 118 with the amount of vascular congestion on the chest x-ray. His O2 sats remained 99% on the BiPAP. Blood pressure is 118/68. His 88 and appears sinus on the monitor. Urinalysis obtained by catheterization reveals a trace of occult blood and 5-10 RBCs per high power field but no signs of an infective process. Therefore I cannot be sure that there is not a pneumonia hiding within the infiltrates in both lower lobes of his lungs. I'm going to treat him on speculation for pneumonia due to his elevated CRP and the sudden onset of hypoxia with a definite fever clinically. I was going to place him on Levaquin 750 mg IV but it may interact with his metformin and cause hypoglycemia. Therefore a better choice would be Rocephin 2 g IV and 500 mg of Zithromax 1gm IV empirically for suspect pneumonia. He is maintaining O2 sats are 98% on the BiPAP. Going to take him off BiPAP at present time and try him on a Venturi mask at 40%. 07/29/19 19:16 We were able to place him on a Venturi mask at 31% and achieve O2 sats of 93--94% in this fashion. Of note the patient does have sleep apnea and is on a CPAP machine which was not sent along with him. 07/29/19 19:22 02 sats drifted down to 91%. Therefore the Venturi mask was increased to 36% which is 6 L/m. 07/29/19 19:[address] Quinn concrete floater hospitalist and he will see the patient on the med surgery floor. The plan will be to admit him to bed 9 tentatively which is a bariatric room. Of note the patient will require BiPAP or CPAP overnight because he has sleep apnea syndrome 2. Morbid obesity. He also will need his insulin dose tonight. Departure - Departure Time of Disposition: 19:33 Disposition: Admitted As Inpatient 66 Condition: Fair Clinical Impression: Morbid obesity with BMI of 50.0-59.9, adult, Acute febrile illness, Fever of unknown origin Acute and chronic respiratory failure ([id number]) Qualifiers: Respiratory failure complication: hypoxia and hypercapnia Qualified Code(s): J96.21 - Acute and chronic respiratory failure with hypoxia; J96.22 - Acute and chronic respiratory failure with hypercapnia Type 2 diabetes mellitus Qualifiers: Diabetes mellitus chcf insulin use: with exterminator helper use Diabetes mellitus complication status: with hyperglycemia Qualified Code(s): E11.65 - Type 2 diabetes mellitus with hyperglycemia; Z79.4 - care home (current) use of insulin Pneumonia Qualifiers: Pneumonia type: due to Haemophilus influenzae Laterality: left Lung location: lower lobe of lung Qualified Code(s): J14 - Pneumonia due to Hemophilus influenzae - Discharge Information *PRESCRIPTION DRUG MONITORING PROGRAM REVIEWED*: Not Applicable *COPY OF PRESCRIPTION DRUG MONITORING REPORT IN PATIENT YESI: Not Applicable Referrals: Samuel Hoyos MD [Primary Care Provider] - Forms: ED Department Discharge - My Orders Last 24 Hours: My Active Orders 07/29/19 17:24 EKG Documentation Completion [RC] STAT Chest 1V Frontal [CR] Stat 07/29/19 17:25 Oxygen Therapy [RC] ASDIRECTED 07/29/19 17:26 Blood Glucose Check, Bedside [RC] ONETIME Blood Culture x2 Reflex Set [OM.PC] Stat Peripheral IV Insertion Adult [OM.PC] Stat 07/29/19 17:27 Peripheral IV Care [RC] . DIRECTED Sodium Chloride 0.9% [Saline Flush] 10 ml FLUSH ASDIRECTED PRN 07/29/19 17:40 CULTURE BLOOD [BC] Stat 07/29/19 17:45 Martinez Catheter Insertion [Insert Urinary Catheter] [OM.PC] Q24H 07/29/19 17:46 Urinary Catheter Assessment [RC] ASDIRECTED 07/29/19 17:50 RT BiPAP/CPAP [RC] ASDIRECTED 07/29/19 17:58 CULTURE BLOOD [BC] Stat 07/29/19 19:08 Azithromycin [Zithromax] 1,000 mg Sodium Chloride 0.9% [Normal Saline] 500 ml IV ONETIME 07/29/19 19:15 cefTRIAXone [Rocephin] 2 gm Sodium Chloride 0.9% [Normal Saline] 100 ml IV Q24H - Assessment/Plan Last 24 Hours: My Active Orders 07/29/19 17:24 EKG Documentation Completion [RC] STAT Chest 1V Frontal [CR] Stat 07/29/19 17:25 Oxygen Therapy [RC] ASDIRECTED 07/29/19 17:26 Blood Glucose Check, Bedside [RC] ONETIME Blood Culture x2 Reflex Set [OM.PC] Stat Peripheral IV Insertion Adult [OM.PC] Stat 07/29/19 17:27 Peripheral IV Care [RC] . DIRECTED Sodium Chloride 0.9% [Saline Flush] 10 ml FLUSH ASDIRECTED PRN 07/29/19 17:40 CULTURE BLOOD [BC] Stat 07/29/19 17:45 Martinez Catheter Insertion [Insert Urinary Catheter] [OM.PC] Q24H 07/29/19 17:46 Urinary Catheter Assessment [RC] ASDIRECTED 07/29/19 17:50 RT BiPAP/CPAP [RC] ASDIRECTED 07/29/19 17:58 CULTURE BLOOD [BC] Stat 07/29/19 19:08 Azithromycin [Zithromax] 1,000 mg Sodium Chloride 0.9% [Normal Saline] 500 ml IV ONETIME 07/29/19 19:15 cefTRIAXone [Rocephin] 2 gm Sodium Chloride 0.9% [Normal Saline] 100 ml IV Q24H
[2019-07-29] MEDS ORDERED: Sodium Chloride 0.9% 10 ML Syringe FLUSH PRN (17:27)
[2019-07-29] MEDS ORDERED: Acetaminophen 325 MG Tab PO ONE (17:28)
[2019-07-29] MEDS ORDERED: Furosemide 40 MG/4 ML VIAL IVPUSH ONE (17:28)
[2019-07-29] MEDS ORDERED: Lidocaine 2% Jelly 10 ML Urojet MUCMEM ONE (17:46)
[2019-07-29] MEDS ORDERED: Azithromycin 1,000 MG in Sodium Chloride 0.9% 500 ML IV ONE (19:08)
[2019-07-29] MEDS: cefTRIAXone 2 GM in Sodium Chloride 0.9% 100 ML IV SCH (19:15)
[2019-07-29] MEDS ORDERED: Acetaminophen 325 MG Tab PO PRN (21:23)
[2019-07-29] MEDS ORDERED: Ibuprofen 600 MG Tab PO PRN (21:23)
[2019-07-29] MEDS ORDERED: Ondansetron 4 MG/2 ML SDV IV PRN (21:23)
[2019-07-29] MEDS ORDERED: Albuterol 0.083% 2.5 MG/3 ML Neb Soln NEB PRN (21:23)
[2019-07-29] MEDS ORDERED: predniSONE 20 MG Tab PO ONE (21:39)
--- NOTE | 2019-07-29 21:39 | PCM.HP.2 ---
H&P History of Present Illness - General Date of Service: 07/29/19 Admit Problem/Dx: Admission Diagnosis/Problem Admission Diagnosis/Problem Acute on chronic respiratory failure - History of Present Illness Initial Comments - Free Text/Narative: 63-year-old male from [facility] resident who is a morbidly obese male with history of COPD and hypoxemia on 2 L nasal cannula normally at home presents to the emergency room with hypoxemia. Patient states that for at least a week he has had some increasing shortness of breath. He started having lower oxygen saturations over the weekend and the care home staff today found his oxygen saturations very low this afternoon. EMS was called and his saturations were found to be in the low 80s. Even on 10 L mask they had difficulty keeping his oxygenation in the upper 80s. Patient was alert and oriented when he arrived in the emergency room. He had moderate respiratory distress and was placed on BiPAP. Patient denies any fever, chills, or night sweats. He does have some mental limitations so answers questions simply and not completely. Patient does have a cough and occasionally has green sputum. In the emergency room they did find him to have a temperature of 100.4. Emergency room labs: CBC 7.0, hemoglobin 14.6, platelets 180, d-dimer less than 0.19, INR 0.98, APTT 29, troponin less than 0.017, BNP was 118, she wrecked her protein 3.7, sodium 145, potassium 4.5, chloride 106, bicarbonate 34, BUN 20, creatinine 0.8, platelet 198, UA WBC 0-5. ABG: PH 7.39, PCO2 of 51.3, PO2 166.0 on BiPAP, HCO3 30.3. There able to take him off BiPAP and put him to a Ventimask at 36%. Portable chest x-ray showed cardiomegaly with diffuse pulmonary vascular congestion with no definitive infiltrate. He was given Rocephin and Zithromax in the ER. EKG: Difficult to interpret because of low voltage due to obesity. Sinus rhythm with ventricular rate of 87 bpm. Left axis deviation. Neuro QRS complex. She really decreased QRS voltage. - Related Data Allergies/Adverse Reactions: Allergies Allergy/AdvReac Type Severity Reaction Status Date / Time No Known Allergies Allergy Verified 07/29/19 17:27 Home Medications: Home Meds Aspirin 81 mg PO DAILY 11/08/15 [History] FLUoxetine [PROzac] 60 mg PO DAILY 11/08/15 [History] Metoprolol Succinate [Toprol XL] 25 mg PO DAILY 11/08/15 [History] Rosuvastatin [Crestor] 10 mg PO DAILY 11/08/15 [History] Furosemide [Lasix] 40 mg PO DAILY 03/13/19 [History] Nystatin 1 applic TOP BID PRN 03/13/19 [History] Potassium Chloride [K-Tab ER] 20 meq PO DAILY 03/13/19 [History] Triamcinolone Acetonide [Triamcinolone Acetonide 0.1% Crm] 1 applic TOP BID PRN 03/13/19 [History] busPIRone HCl [busPIRone] 30 mg PO BEDTIME 03/13/19 [History] Albuterol/Ipratropium [DuoNeb 3.0-0.5 MG/3 ML] 3 ml NEB Q4H PRN #120 neb [Rx] Insulin Lispro [HumaLOG] 0 unit SUBCUT QIDACANDBED vial 03/20/19 [Rx] Nystatin [Nystatin Oral Syringe] 500,000 unit PO QID #20 syringe 03/20/19 [Rx] Ibuprofen 3 tab PO Q6HR PRN 07/29/19 [History] Insulin Glarg,Human.Rec.Analog [Lantus] 55 unit SUBCUT BEDTIME 07/29/19 [History ] Insulin Lispro [HumaLOG] 15 unit SUBCUT TIDMEALS 07/29/19 [History] OXcarbazepine [Trileptal] 300 mg PO BID 07/29/19 [History] metFORMIN [Glucophage XR] 1,000 mg PO DAILY 07/29/19 [History] Past Medical History HEENT History: Reports: Cataract Other HEENT History: Wears glasses Cardiovascular History: Reports: Heart Failure, Hypertension Other Cardiovascular History: Cardiomegaly Respiratory History: Reports: COPD, Sleep Apnea Other Respiratory History: uses CPAP Genitourinary History: Reports: Urinary Incontinence Neurological History: Reports: Seizure (He is on Trileptal 300 mg twice a day.) Psychiatric History: Reports: Anxiety, Depression, Developmental Delay Endocrine/Metabolic History: Reports: Diabetes, Type II (Controlled with oral medications and insulin.), Obesity/BMI 30+ Dermatologic History: Reports: Cellulitis Other Dermatologic History: xerosis cutis - Past Surgical History HEENT Surgical History: Reports: Cataract Surgery Social & Family History - Family History Family Medical History: Unobtainable Other HEENT Family History: Patient unsure of family medical history - Tobacco Use Smoking Status *Q: Never Smoker - Recreational Drug Use Recreational Drug Use: No - Living Situation & Occupation Living situation: Reports: Extended Care Facility (Lives in [facility] Occupation: Disabled H&P Review of Systems - Review of Systems: Review Of Systems: ROS reveals no pertinent complaints other than HPI. Exam - Exam Exam: See Below - Vital Signs Vital Signs: Last Vital Signs Temp 98.3 F 07/29/19 17:54 Pulse 88 07/29/19 17:54 Resp 25 H 07/29/19 17:54 BP 127/87 07/29/19 17:54 Pulse Ox 94 L 07/29/19 19:16 Weight: 400 lb - Exam Quality Assessment: Supplemental Oxygen General: Alert, Oriented, Other (Morbidly obese) HEENT: Conjunctiva Clear, Mucosa Moist & [place] Neck: Supple, Trachea Midline, 2 Lungs: Decreased Breath Sounds, Rales (Minimal bibasilar rales), Wheezing ( Anterior wheeze). No: Normal Respiratory Effort (Increased respiratory effort and rate.) Cardiovascular: Regular Rate, Regular Rhythm, Other (Distant heart sounds) GI/Abdominal Exam: Normal Bowel Sounds (Distant), Soft, Non-Tender, Distended ( Morbidly obese) Extremities: Pedal Edema, Other (Bilateral stasis dermatitis in the lower extremity) Skin: Warm, Dry, Intact Neurological: Cranial Nerves Intact Neuro Extensive - Mental Status: Alert, Normal Mood/Affect, Normal Cognition, Memory Intact Neuro Extensive - Motor, Sensory, Reflexes: CN II-XII Intact Psychiatric: Alert, Normal Affect, Normal Mood - Patient Data Lab Results Last 24 hrs: Laboratory Results - last 24 hr 07/29/19 07/29/19 07/29/19 Range/Units 17:26 17:32 17:40 WBC 7.01 (4.23-9.07) K/mm3 RBC 5.15 (4.63-6.08) M/mm3 Hgb 14.6 (13.7-17.5) gm/dl Hct 46.5 (40.1-51.0) % MCV 90.3 (79.0-92.2) fl MCH 28.3 (25.7-32.2) pg MCHC 31.4 L (32.2-35.5) g/dl RDW Std Deviation 48.7 H (35.1-43.9) fL Plt Count 180 (163-337) K/mm3 MPV 11.3 (9.4-12.3) fl Neutrophils % (Manual) 60 (40-60) % Band Neutrophils % 0 (0-10) % Lymphocytes % (Manual) 35 (20-40) % Atypical Lymphs % 0 % Monocytes % (Manual) 3 (2-10) % Eosinophils % (Manual) 2 (0.8-7.0) % Basophils % (Manual) 0 L (0.2-1.2) Platelet Estimate Adequate Plt Morphology Comment Normal RBC Morph Comment Normal PT (9.7-12.0) SECONDS INR APTT (22-31) SECONDS D-Dimer, Quantitative (0.19-0.50) mg/L Puncture Site Rt radial ABG pH 7.39 (7.35-7.45) ABG pCO2 51.3 H (35.0-45.0) mmHg ABG pO2 166.0 H* (80.0-100.0) mmHg ABG HCO3 30.3 H (22.0-26.0) meq/L ABG O2 Saturation 97.8 H (96.0-97.0) % ABG Base Excess 4.5 H (-2-2.0) Cheo Test Positive A-a Gradient 128 mmHg O2 Delivery Device Bipap FiO2 0.00 L (21.00-100.00) % PEEP 7.0 cmH20 Pressure Support 14.0 cmH2O Sodium (136-145) mEq/L Potassium (3.5-5.1) mEq/L Chloride (98-107) mEq/L Carbon Dioxide (21-32) mEq/L Anion Gap (5-15) BUN (7-18) mg/dL Creatinine (0.7-1.3) mg/dL Est Cr Clr Drug Dosing mL/min Estimated GFR (MDRD) (>60) mL/min BUN/Creatinine Ratio (14-18) Glucose (80-115) mg/dL POC Glucose 198 H (80-115) mg/dL Lactic Acid (0.4-2.0) mmol/L Calcium (8.5-10.1) mg/dL Magnesium (1.8-2.4) mg/dl Total Bilirubin (0.2-1.0) mg/dL AST (15-37) U/L ALT (16-63) U/L Alkaline Phosphatase (46-116) U/L CK-MB (CK-2) (0-3.6) ng/ml Troponin I (0.00-0.056) ng/mL C-Reactive Protein (<1.0) mg/dL NT-Pro-B Natriuret Pep (0-125) pg/mL Total Protein (6.4-8.2) g/dl Albumin (3.4-5.0) g/dl Globulin gm/dL Albumin/Globulin Ratio (1-2) Urine Color (Yellow) Urine Appearance (Clear) Urine pH (5.0-8.0) Ur Specific [place] (1.005-1.030) Urine Protein (Negative) Urine Glucose (UA) (Negative) Urine Ketones (Negative) Urine Occult Blood (Negative) Urine Nitrite (Negative) Urine Bilirubin (Negative) Urine Urobilinogen (0.2-1.0) Ur Leukocyte Esterase (Negative) Urine RBC (0-5) /hpf Urine WBC (0-5) /hpf Ur Squamous Epith Cells (0-5) /hpf Urine Bacteria (FEW) /hpf Urine Mucus (FEW) /hpf 07/29/19 07/29/19 07/29/19 Range/Units 17:40 17:40 17:40 WBC (4.23-9.07) K/mm3 RBC (4.63-6.08) M/mm3 Hgb (13.7-17.5) gm/dl Hct (40.1-51.0) % MCV (79.0-92.2) fl MCH (25.7-32.2) pg MCHC (32.2-35.5) g/dl RDW Std Deviation (35.1-43.9) fL Plt Count (163-337) K/mm3 MPV (9.4-12.3) fl Neutrophils % (Manual) (40-60) % Band Neutrophils % (0-10) % Lymphocytes % (Manual) (20-40) % Atypical Lymphs % % Monocytes % (Manual) (2-10) % Eosinophils % (Manual) (0.8-7.0) % Basophils % (Manual) (0.2-1.2) Platelet Estimate Plt Morphology Comment RBC Morph Comment PT (9.7-12.0) SECONDS INR APTT (22-31) SECONDS D-Dimer, Quantitative (0.19-0.50) mg/L Puncture Site ABG pH (7.35-7.45) ABG pCO2 (35.0-45.0) mmHg ABG pO2 (80.0-100.0) mmHg ABG HCO3 (22.0-26.0) meq/L ABG O2 Saturation (96.0-97.0) % ABG Base Excess (-2-2.0) Cheo Test A-a Gradient mmHg O2 Delivery Device FiO2 (21.00-100.00) % PEEP cmH20 Pressure Support cmH2O Sodium 145 (136-145) mEq/L Potassium 4.5 (3.5-5.1) mEq/L Chloride 106 (98-107) mEq/L Carbon Dioxide 34 H (21-32) mEq/L Anion Gap 9.5 (5-15) BUN 20 H (7-18) mg/dL Creatinine 0.8 (0.7-1.3) mg/dL Est Cr Clr Drug Dosing 103.74 mL/min Estimated GFR (MDRD) > 60 (>60) mL/min BUN/Creatinine Ratio 25.0 H (14-18) Glucose 221 H (80-115) mg/dL POC Glucose (80-115) mg/dL Lactic Acid 1.8 (0.4-2.0) mmol/L Calcium 9.3 (8.5-10.1) mg/dL Magnesium 1.9 (1.8-2.4) mg/dl Total Bilirubin 0.3 (0.2-1.0) mg/dL AST 14 L (15-37) U/L ALT 36 (16-63) U/L Alkaline Phosphatase 94 (46-116) U/L CK-MB (CK-2) 1.8 (0-3.6) ng/ml Troponin I < 0.017 (0.00-0.056) ng/mL C-Reactive Protein 3.7 H* (<1.0) mg/dL NT-Pro-B Natriuret Pep 118 (0-125) pg/mL Total Protein 7.3 (6.4-8.2) g/dl Albumin 3.3 L (3.4-5.0) g/dl Globulin 4.0 gm/dL Albumin/Globulin Ratio 0.8 L (1-2) Urine Color (Yellow) Urine Appearance (Clear) Urine pH (5.0-8.0) Ur Specific [place] (1.005-1.030) Urine Protein (Negative) Urine Glucose (UA) (Negative) Urine Ketones (Negative) Urine Occult Blood (Negative) Urine Nitrite (Negative) Urine Bilirubin (Negative) Urine Urobilinogen (0.2-1.0) Ur Leukocyte Esterase (Negative) Urine RBC (0-5) /hpf Urine WBC (0-5) /hpf Ur Squamous Epith Cells (0-5) /hpf Urine Bacteria (FEW) /hpf Urine Mucus (FEW) /hpf 07/29/19 07/29/19 07/29/19 Range/Units 17:58 17:58 18:30 WBC (4.23-9.07) K/mm3 RBC (4.63-6.08) M/mm3 Hgb (13.7-17.5) gm/dl Hct (40.1-51.0) % MCV (79.0-92.2) fl MCH (25.7-32.2) pg MCHC (32.2-35.5) g/dl RDW Std Deviation (35.1-43.9) fL Plt Count (163-337) K/mm3 MPV (9.4-12.3) fl Neutrophils % (Manual) (40-60) % Band Neutrophils % (0-10) % Lymphocytes % (Manual) (20-40) % Atypical Lymphs % % Monocytes % (Manual) (2-10) % Eosinophils % (Manual) (0.8-7.0) % Basophils % (Manual) (0.2-1.2) Platelet Estimate Plt Morphology Comment RBC Morph Comment PT 10.7 (9.7-12.0) SECONDS INR 0.98 APTT 29 (22-31) SECONDS D-Dimer, Quantitative < 0.19 L (0.19-0.50) mg/L Puncture Site ABG pH (7.35-7.45) ABG pCO2 (35.0-45.0) mmHg ABG pO2 (80.0-100.0) mmHg ABG HCO3 (22.0-26.0) meq/L ABG O2 Saturation (96.0-97.0) % ABG Base Excess (-2-2.0) Cheo Test A-a Gradient mmHg O2 Delivery Device FiO2 (21.00-100.00) % PEEP cmH20 Pressure Support cmH2O Sodium (136-145) mEq/L Potassium (3.5-5.1) mEq/L Chloride (98-107) mEq/L Carbon Dioxide (21-32) mEq/L Anion Gap (5-15) BUN (7-18) mg/dL Creatinine (0.7-1.3) mg/dL Est Cr Clr Drug Dosing mL/min Estimated GFR (MDRD) (>60) mL/min BUN/Creatinine Ratio (14-18) Glucose (80-115) mg/dL POC Glucose (80-115) mg/dL Lactic Acid (0.4-2.0) mmol/L Calcium (8.5-10.1) mg/dL Magnesium (1.8-2.4) mg/dl Total Bilirubin (0.2-1.0) mg/dL AST (15-37) U/L ALT (16-63) U/L Alkaline Phosphatase (46-116) U/L CK-MB (CK-2) (0-3.6) ng/ml Troponin I (0.00-0.056) ng/mL C-Reactive Protein (<1.0) mg/dL NT-Pro-B Natriuret Pep (0-125) pg/mL Total Protein (6.4-8.2) g/dl Albumin (3.4-5.0) g/dl Globulin gm/dL Albumin/Globulin Ratio (1-2) Urine Color Yellow (Yellow) Urine Appearance Clear (Clear) Urine pH 6.0 (5.0-8.0) Ur Specific [place] 1.020 (1.005-1.030) Urine Protein Negative (Negative) Urine Glucose (UA) Negative (Negative) Urine Ketones Negative (Negative) Urine Occult Blood Trace-intact H (Negative) Urine Nitrite Negative (Negative) Urine Bilirubin Negative (Negative) Urine Urobilinogen 0.2 (0.2-1.0) Ur Leukocyte Esterase Negative (Negative) Urine RBC 5-10 H (0-5) /hpf Urine WBC 0-5 (0-5) /hpf Ur Squamous Epith Cells 0-5 (0-5) /hpf Urine Bacteria Occasional (FEW) /hpf Urine Mucus Rare (FEW) /hpf 07/29/19 Range/Units 21:22 WBC (4.23-9.07) K/mm3 RBC (4.63-6.08) M/mm3 Hgb (13.7-17.5) gm/dl Hct (40.1-51.0) % MCV (79.0-92.2) fl MCH (25.7-32.2) pg MCHC (32.2-35.5) g/dl RDW Std Deviation (35.1-43.9) fL Plt Count (163-337) K/mm3 MPV (9.4-12.3) fl Neutrophils % (Manual) (40-60) % Band Neutrophils % (0-10) % Lymphocytes % (Manual) (20-40) % Atypical Lymphs % % Monocytes % (Manual) (2-10) % Eosinophils % (Manual) (0.8-7.0) % Basophils % (Manual) (0.2-1.2) Platelet Estimate Plt Morphology Comment RBC Morph Comment PT (9.7-12.0) SECONDS INR APTT (22-31) SECONDS D-Dimer, Quantitative (0.19-0.50) mg/L Puncture Site ABG pH (7.35-7.45) ABG pCO2 (35.0-45.0) mmHg ABG pO2 (80.0-100.0) mmHg ABG HCO3 (22.0-26.0) meq/L ABG O2 Saturation (96.0-97.0) % ABG Base Excess (-2-2.0) Cheo Test A-a Gradient mmHg O2 Delivery Device FiO2 (21.00-100.00) % PEEP cmH20 Pressure Support cmH2O Sodium (136-145) mEq/L Potassium (3.5-5.1) mEq/L Chloride (98-107) mEq/L Carbon Dioxide (21-32) mEq/L Anion Gap (5-15) BUN (7-18) mg/dL Creatinine (0.7-1.3) mg/dL Est Cr Clr Drug Dosing mL/min Estimated GFR (MDRD) (>60) mL/min BUN/Creatinine Ratio (14-18) Glucose (80-115) mg/dL POC Glucose 187 H (80-115) mg/dL Lactic Acid (0.4-2.0) mmol/L Calcium (8.5-10.1) mg/dL Magnesium (1.8-2.4) mg/dl Total Bilirubin (0.2-1.0) mg/dL AST (15-37) U/L ALT (16-63) U/L Alkaline Phosphatase (46-116) U/L CK-MB (CK-2) (0-3.6) ng/ml Troponin I (0.00-0.056) ng/mL C-Reactive Protein (<1.0) mg/dL NT-Pro-B Natriuret Pep (0-125) pg/mL Total Protein (6.4-8.2) g/dl Albumin (3.4-5.0) g/dl Globulin gm/dL Albumin/Globulin Ratio (1-2) Urine Color (Yellow) Urine Appearance (Clear) Urine pH (5.0-8.0) Ur Specific [place] (1.005-1.030) Urine Protein (Negative) Urine Glucose (UA) (Negative) Urine Ketones (Negative) Urine Occult Blood (Negative) Urine Nitrite (Negative) Urine Bilirubin (Negative) Urine Urobilinogen (0.2-1.0) Ur Leukocyte Esterase (Negative) Urine RBC (0-5) /hpf Urine WBC (0-5) /hpf Ur Squamous Epith Cells (0-5) /hpf Urine Bacteria (FEW) /hpf Urine Mucus (FEW) /hpf Result Diagrams: 07/29/19 17:40 07/29/19 17:40 Problem List Initiated/Reviewed/Updated: Yes Orders Last 24hrs: Active Orders 24 hr Category Date Time Status Admission Status [Patient Status] [ADT] Routine ADT 07/29/19 19:36 Active Blood Glucose Check, Bedside [RC] ONETIME Care 07/29/19 17:26 Active Blood Glucose Check, Bedside [RC] QIDACANDBED Care 07/29/19 21:37 Ordered Martinez Catheter Insertion [Insert Urinary Catheter] [OM. Care 07/29/19 17:45 Ordered PC] Q24H Intake and Output Strict [RC] ASDIRECTED Care 07/29/19 21:29 Ordered Oxygen Therapy [RC] ASDIRECTED Care 07/29/19 17:25 Active Oxygen Therapy [RC] PRN Care 07/29/19 21:24 Ordered Peripheral IV Care [RC] . DIRECTED Care 07/29/19 17:27 Active RT Aerosol Therapy [RC] ASDIRECTED Care 07/29/19 21:29 Ordered RT BiPAP/CPAP [RC] ASDIRECTED Care 07/29/19 17:50 Active Up ad Lo [RC] ASDIRECTED Care 07/29/19 21:23 Ordered Urinary Catheter Assessment [RC] ASDIRECTED Care 07/29/19 17:46 Active VTE/DVT Education [RC] PER UNIT ROUTINE Care 07/29/19 21:24 Ordered Vital Signs [RC] Q4H Care 07/29/19 21:24 Ordered OT Evaluation and Treatment [CONS] Routine Cons 07/29/19 21:33 Ordered PT Evaluation and Treatment [CONS] Routine Cons 07/29/19 21:33 Ordered Chest 1V Frontal [CR] Stat Exams 07/29/19 17:24 Taken C-REACTIVE PROTEIN [CHEM] AM Lab 07/30/19 05:11 Ordered C-REACTIVE PROTEIN [CHEM] AM Lab 07/31/19 05:11 Ordered C-REACTIVE PROTEIN [CHEM] AM Lab 08/01/19 05:11 Ordered C-REACTIVE PROTEIN [CHEM] AM Lab 08/02/19 05:11 Ordered C-REACTIVE PROTEIN [CHEM] AM Lab 08/03/19 05:11 Ordered CBC WITH AUTO DIFF [HEME] AM Lab 07/30/19 05:11 Ordered CBC WITH AUTO DIFF [HEME] AM Lab 07/31/19 05:11 Ordered CBC WITH AUTO DIFF [HEME] AM Lab 08/01/19 05:11 Ordered CBC WITH AUTO DIFF [HEME] AM Lab 08/02/19 05:11 Ordered CBC WITH AUTO DIFF [HEME] AM Lab 08/03/19 05:11 Ordered COMPREHENSIVE METABOLIC PN,CMP [CHEM] AM Lab 07/30/19 05:11 Ordered COMPREHENSIVE METABOLIC PN,CMP [CHEM] AM Lab 07/31/19 05:11 Ordered COMPREHENSIVE METABOLIC PN,CMP [CHEM] AM Lab 08/01/19 05:11 Ordered COMPREHENSIVE METABOLIC PN,CMP [CHEM] AM Lab 08/02/19 05:11 Ordered COMPREHENSIVE METABOLIC PN,CMP [CHEM] AM Lab 08/03/19 05:11 Ordered CULTURE BLOOD [BC] Stat Lab 07/29/19 17:40 Received CULTURE BLOOD [BC] Stat Lab 07/29/19 17:58 Received INFLUENZA A+B AG SCREEN [RM] Urgent Lab 07/29/19 21:34 Ordered LEGIONELLA ANTIGEN [MREF] Routine Lab 07/29/19 21:33 Ordered MAGNESIUM [CHEM] AM Lab 07/30/19 05:11 Ordered MAGNESIUM [CHEM] AM Lab 07/31/19 05:11 Ordered MAGNESIUM [CHEM] AM Lab 08/01/19 05:11 Ordered MAGNESIUM [CHEM] AM Lab 08/02/19 05:11 Ordered MAGNESIUM [CHEM] AM Lab 08/03/19 05:11 Ordered METH-RESIST S.AUR,MRSA BY PCR [MOLEC] Routine Lab 07/29/19 20:35 Received PRO B-TYPE NATRIUR PEPT,BNPPRO [CHEM] Routine Lab 07/30/19 05:00 Ordered RESPIRATORY PANEL Routine Lab 07/29/19 21:33 Ordered STREP PNEUMONIAE ANTIGEN [MREF] Routine Lab 07/29/19 21:33 Ordered TSH [CHEM] AM Lab 07/30/19 05:11 Ordered Acetaminophen [Tylenol] Med 07/29/19 21:23 Ordered 650 mg PO Q4H PRN Albuterol [Proventil Neb Soln] Med 07/29/19 21:23 Ordered 2.5 mg NEB Q2H PRN Albuterol/Ipratropium [DuoNeb 3.0-0.5 MG/3 ML] Med 07/29/19 21:30 Ordered 3 ml NEB Q4H Enoxaparin [Lovenox] Med 07/30/19 09:00 Ordered 40 mg SUBCUT BID Ibuprofen [Motrin] Med 07/29/19 21:23 Ordered 600 mg PO Q6H PRN Insulin Lispro [HumaLOG] Med 07/29/19 22:00 Ordered See Protocol SUBCUT QIDACANDBED Ondansetron [Zofran] Med 07/29/19 21:23 Ordered 4 mg IV Q4H PRN Sodium Chloride 0.9% [Saline Flush] Med 07/29/19 17:27 Active 10 ml FLUSH ASDIRECTED PRN cefTRIAXone [Rocephin] 2 gm Med 07/29/19 19:15 Active Sodium Chloride 0.9% [Normal Saline] 100 ml IV Q24H Blood Culture x2 Reflex Set [OM.PC] Stat Oth 07/29/19 17:26 Ordered Peripheral IV Insertion Adult [OM.PC] Stat Oth 07/29/19 17:26 Ordered Resuscitation Status Routine Resus Stat 07/29/19 21:23 Ordered Medication Orders Acetaminophen (Tylenol) 650 mg PO Q4H PRN PRN Reason: Pain (Mild 1-3)/fever Albuterol (Proventil Neb Soln) 2.5 mg NEB Q2H PRN PRN Reason: Shortness Of Breath/wheezing Albuterol/Ipratropium (Duoneb 3.0-0.5 Mg/3 Ml) 3 ml NEB Q4H [facility]Z ELENA Enoxaparin Sodium (Lovenox) 40 mg SUBCUT BID [facility] Ceftriaxone Sodium 2 gm/ (Sodium Chloride) 100 mls @ 200 mls/hr IV Q24H [facility] Last Admin: 07/29/19 19:15 Dose: 200 mls/hr Ibuprofen (Motrin) 600 mg PO Q6H PRN PRN Reason: Pain (moderate 4-6) Insulin Human Lispro (Humalog) 0 unit SUBCUT QIDACANDBED [facility]; Protocol Ondansetron HCl (Zofran) 4 mg IV Q4H PRN PRN Reason: Nausea/Vomiting Sodium Chloride (Saline Flush) 10 ml FLUSH ASDIRECTED PRN PRN Reason: Keep Vein Open Last Admin: 07/29/19 17:39 Dose: 10 ml Assessment/Plan Comment:: Assessment * Acute exacerbation of COPD with respiratory failure; hypoxia and hypercapnia. * It is unknown if he has had a formal workup and diagnosis of COPD or if it is just presumed. Hypoxemia and hypercapnia is likely worse 2/2 restrictive airway disease 2/2 obesity. * ABG initially showed elevated PCO2 and he presented with hypoxemia on oxygen saturation * Initially placed on BiPAP but was able to wean to Ventimask * Febrile illness with temperature of 100.4 in the emergency room * Started on Rocephin and Zithromax in ER * Type 2 Diabetes; insulin dependent * History of CHF, sleep apnea, morbid obesity, urinary in continence, seizure, HTN, cardiomegaly, anxiety, depression, developmental delay, status dermatitis Plan * Admit to medical floor on telemetry * Continue Rocephin and Zithromax * Start Prednisone 40 daily for COPD exacerbation. * Get respiratory panel, influenza screen, mycoplasma, procalcitonin * Blood and sputum cultures. * BiPAP tonight: setting 15/04 * FiO2 to keep SpO2 > 92 < 95% * Reconcile home meds: hold metformin * SSI in addition to home insulin. BS should increase 2/2 prednisone. * PT/OT consulted * Incentive spirometry. * VTE prophylaxis with Lovenox * Code status: Full Code * LOS 3-4 days. - Mortality Measure Prognosis:: Good
[2019-07-29] MEDS ORDERED: Nystatin Crm 30 GM Tube TOP PRN (21:44)
[2019-07-29] MEDS: Albuterol/Ipratropium 3.0-0.5 MG/3 ML Neb Soln NEB SCH (22:05)
[2019-07-29] MEDS: busPIRone 15 MG Tab PO SCH (22:41)
[2019-07-29] MEDS: Insulin Lispro 100 Units/ML 3 ML Vial SUBCUT SCH (22:45)
[2019-07-30] MEDS: Albuterol/Ipratropium 3.0-0.5 MG/3 ML Neb Soln NEB SCH ×6 (01:15→21:13)
--- NOTE | 2019-07-30 06:54 | CR ---
Chest: Portable view of the chest was obtained. Comparison: Prior chest x-ray of 03/14/19. Heart is enlarged. Pulmonary vessels are slightly increased which appear stable. No acute parenchymal change is otherwise seen. Bony structures are grossly intact. Impression: 1. Cardiomegaly and mild pulmonary vascular congestion. Findings are similar to prior exam. 2. Nothing acute is otherwise seen on portable chest x-ray. Diagnostic code #3
[2019-07-30] MEDS: predniSONE 20 MG Tab PO SCH (07:22)
[2019-07-30 08:19] LABS: HEMOGLOBIN A1C 8.8 % (4.50-6.20)
[2019-07-30] MEDS: Insulin Lispro 100 Units/ML 3 ML Vial SUBCUT SCH ×7 (08:52→21:41)
[2019-07-30] MEDS: Enoxaparin 40 MG/0.4 ML Syringe SUBCUT SCH ×2 (08:54→20:17)
[2019-07-30] MEDS: FLUoxetine 20 MG Cap PO SCH (08:58)
[2019-07-30] MEDS: Metoprolol Succinate 25 MG Tab.ER PO SCH (08:59)
[2019-07-30] MEDS: OXcarbazepine 300 MG Tab PO SCH ×2 (09:00→20:16)
[2019-07-30] MEDS: Rosuvastatin 10 MG Tab PO SCH (09:01)
[2019-07-30] MEDS: Aspirin 81 MG Tab.Chew PO SCH (09:01)
[2019-07-30] MEDS: Potassium Chloride 20 MEQ Tab.ER PO SCH (09:02)
[2019-07-30] MEDS: Furosemide 40 MG Tab PO SCH (09:02)
[2019-07-30] MEDS: Nystatin Susp 100,000 Unit/ML 5 ML Oral Syringe PO SCH ×2 (09:03→12:25)
--- NOTE | 2019-07-30 13:48 | PCM.PN ---
- General Info Date of Service: 07/30/19 Admission Dx/Problem (Free Text): Admission Diagnosis/Problem Admission Diagnosis/Problem Acute on chronic respiratory failure Subjective Update: Patient is back on home oxygen and states he is feeling better. - Review of Systems General: Reports: No Symptoms HEENT: Reports: No Symptoms Pulmonary: Reports: No Symptoms Cardiovascular: Reports: No Symptoms Gastrointestinal: Reports: No Symptoms Musculoskeletal: Reports: No Symptoms - Patient Data Vitals - Most Recent: Last Vital Signs Temp 98.8 F 07/30/19 12:05 Pulse 89 07/30/19 12:05 Resp 24 H 07/30/19 12:05 BP 137/56 L 07/30/19 12:05 Pulse Ox 91 L 07/30/19 12:48 Weight - Most Recent: 352 lb 3.2 oz I&O - Last 24 Hours: Intake & Output 07/29/19 07/30/19 07/30/19 22:59 06:59 14:59 Intake Total 650 510 Output Total 1650 600 Balance -1000 -90 Lab Results Last 24 Hours: Laboratory Results - last 24 hr 07/29/19 07/29/19 07/29/19 Range/Units 17:26 17:32 17:40 WBC 7.01 (4.23-9.07) K/mm3 RBC 5.15 (4.63-6.08) M/mm3 Hgb 14.6 (13.7-17.5) gm/dl Hct 46.5 (40.1-51.0) % MCV 90.3 (79.0-92.2) fl MCH 28.3 (25.7-32.2) pg MCHC 31.4 L (32.2-35.5) g/dl RDW Std Deviation 48.7 H (35.1-43.9) fL Plt Count 180 (163-337) K/mm3 MPV 11.3 (9.4-12.3) fl Neut % (Auto) (34.0-67.9) % Lymph % (Auto) (21.8-53.1) % Foard % (Auto) (5.3-12.2) % Eos % (Auto) (0.8-7.0) Baso % (Auto) (0.1-1.2) % Neut # (Auto) (1.78-5.38) K/mm3 Lymph # (Auto) (1.32-3.57) K/mm3 Foard # (Auto) (0.30-0.82) K/mm3 Eos # (Auto) (0.04-0.54) K/mm3 Baso # (Auto) (0.01-0.08) K/mm3 Neutrophils % (Manual) 60 (40-60) % Band Neutrophils % 0 (0-10) % Lymphocytes % (Manual) 35 (20-40) % Atypical Lymphs % 0 % Monocytes % (Manual) 3 (2-10) % Eosinophils % (Manual) 2 (0.8-7.0) % Basophils % (Manual) 0 L (0.2-1.2) Manual Slide Review Platelet Estimate Adequate Plt Morphology Comment Normal RBC Morph Comment Normal PT (9.7-12.0) SECONDS INR APTT (22-31) SECONDS D-Dimer, Quantitative (0.19-0.50) mg/L Puncture Site Rt radial ABG pH 7.39 (7.35-7.45) ABG pCO2 51.3 H (35.0-45.0) mmHg ABG pO2 166.0 H* (80.0-100.0) mmHg ABG HCO3 30.3 H (22.0-26.0) meq/L ABG O2 Saturation 97.8 H (96.0-97.0) % ABG Base Excess 4.5 H (-2-2.0) Cheo Test Positive A-a Gradient 128 mmHg O2 Delivery Device Bipap FiO2 0.00 L (21.00-100.00) % PEEP 7.0 cmH20 Pressure Support 14.0 cmH2O Sodium (136-145) mEq/L Potassium (3.5-5.1) mEq/L Chloride (98-107) mEq/L Carbon Dioxide (21-32) mEq/L Anion Gap (5-15) BUN (7-18) mg/dL Creatinine (0.7-1.3) mg/dL Est Cr Clr Drug Dosing mL/min Estimated GFR (MDRD) (>60) mL/min BUN/Creatinine Ratio (14-18) Glucose (80-115) mg/dL POC Glucose 198 H (80-115) mg/dL Hemoglobin A1c (4.50-6.20) % Lactic Acid (0.4-2.0) mmol/L Calcium (8.5-10.1) mg/dL Magnesium (1.8-2.4) mg/dl Total Bilirubin (0.2-1.0) mg/dL AST (15-37) U/L ALT (16-63) U/L Alkaline Phosphatase (46-116) U/L CK-MB (CK-2) (0-3.6) ng/ml Troponin I (0.00-0.056) ng/mL C-Reactive Protein (<1.0) mg/dL NT-Pro-B Natriuret Pep (0-125) pg/mL Total Protein (6.4-8.2) g/dl Albumin (3.4-5.0) g/dl Globulin gm/dL Albumin/Globulin Ratio (1-2) TSH 3rd Generation (0.358-3.74) uIU/mL Urine Color (Yellow) Urine Appearance (Clear) Urine pH (5.0-8.0) Ur Specific Phelps (1.005-1.030) Urine Protein (Negative) Urine Glucose (UA) (Negative) Urine Ketones (Negative) Urine Occult Blood (Negative) Urine Nitrite (Negative) Urine Bilirubin (Negative) Urine Urobilinogen (0.2-1.0) Ur Leukocyte Esterase (Negative) Urine RBC (0-5) /hpf Urine WBC (0-5) /hpf Ur Squamous Epith Cells (0-5) /hpf Urine Bacteria (FEW) /hpf Urine Mucus (FEW) /hpf Mycoplasma pneumon IgM (NEGATIVE) MRSA (PCR) 07/29/19 07/29/19 07/29/19 Range/Units 17:40 17:40 17:40 WBC (4.23-9.07) K/mm3 RBC (4.63-6.08) M/mm3 Hgb (13.7-17.5) gm/dl Hct (40.1-51.0) % MCV (79.0-92.2) fl MCH (25.7-32.2) pg MCHC (32.2-35.5) g/dl RDW Std Deviation (35.1-43.9) fL Plt Count (163-337) K/mm3 MPV (9.4-12.3) fl Neut % (Auto) (34.0-67.9) % Lymph % (Auto) (21.8-53.1) % Foard % (Auto) (5.3-12.2) % Eos % (Auto) (0.8-7.0) Baso % (Auto) (0.1-1.2) % Neut # (Auto) (1.78-5.38) K/mm3 Lymph # (Auto) (1.32-3.57) K/mm3 Foard # (Auto) (0.30-0.82) K/mm3 Eos # (Auto) (0.04-0.54) K/mm3 Baso # (Auto) (0.01-0.08) K/mm3 Neutrophils % (Manual) (40-60) % Band Neutrophils % (0-10) % Lymphocytes % (Manual) (20-40) % Atypical Lymphs % % Monocytes % (Manual) (2-10) % Eosinophils % (Manual) (0.8-7.0) % Basophils % (Manual) (0.2-1.2) Manual Slide Review Platelet Estimate Plt Morphology Comment RBC Morph Comment PT (9.7-12.0) SECONDS INR APTT (22-31) SECONDS D-Dimer, Quantitative (0.19-0.50) mg/L Puncture Site ABG pH (7.35-7.45) ABG pCO2 (35.0-45.0) mmHg ABG pO2 (80.0-100.0) mmHg ABG HCO3 (22.0-26.0) meq/L ABG O2 Saturation (96.0-97.0) % ABG Base Excess (-2-2.0) Cheo Test A-a Gradient mmHg O2 Delivery Device FiO2 (21.00-100.00) % PEEP cmH20 Pressure Support cmH2O Sodium 145 (136-145) mEq/L Potassium 4.5 (3.5-5.1) mEq/L Chloride 106 (98-107) mEq/L Carbon Dioxide 34 H (21-32) mEq/L Anion Gap 9.5 (5-15) BUN 20 H (7-18) mg/dL Creatinine 0.8 (0.7-1.3) mg/dL Est Cr Clr Drug Dosing 103.74 mL/min Estimated GFR (MDRD) > 60 (>60) mL/min BUN/Creatinine Ratio 25.0 H (14-18) Glucose 221 H (80-115) mg/dL POC Glucose (80-115) mg/dL Hemoglobin A1c (4.50-6.20) % Lactic Acid 1.8 (0.4-2.0) mmol/L Calcium 9.3 (8.5-10.1) mg/dL Magnesium 1.9 (1.8-2.4) mg/dl Total Bilirubin 0.3 (0.2-1.0) mg/dL AST 14 L (15-37) U/L ALT 36 (16-63) U/L Alkaline Phosphatase 94 (46-116) U/L CK-MB (CK-2) 1.8 (0-3.6) ng/ml Troponin I < 0.017 (0.00-0.056) ng/mL C-Reactive Protein 3.7 H* (<1.0) mg/dL NT-Pro-B Natriuret Pep 118 (0-125) pg/mL Total Protein 7.3 (6.4-8.2) g/dl Albumin 3.3 L (3.4-5.0) g/dl Globulin 4.0 gm/dL Albumin/Globulin Ratio 0.8 L (1-2) TSH 3rd Generation (0.358-3.74) uIU/mL Urine Color (Yellow) Urine Appearance (Clear) Urine pH (5.0-8.0) Ur Specific Phelps (1.005-1.030) Urine Protein (Negative) Urine Glucose (UA) (Negative) Urine Ketones (Negative) Urine Occult Blood (Negative) Urine Nitrite (Negative) Urine Bilirubin (Negative) Urine Urobilinogen (0.2-1.0) Ur Leukocyte Esterase (Negative) Urine RBC (0-5) /hpf Urine WBC (0-5) /hpf Ur Squamous Epith Cells (0-5) /hpf Urine Bacteria (FEW) /hpf Urine Mucus (FEW) /hpf Mycoplasma pneumon IgM (NEGATIVE) MRSA (PCR) 07/29/19 07/29/19 07/29/19 Range/Units 17:58 17:58 17:58 WBC (4.23-9.07) K/mm3 RBC (4.63-6.08) M/mm3 Hgb (13.7-17.5) gm/dl Hct (40.1-51.0) % MCV (79.0-92.2) fl MCH (25.7-32.2) pg MCHC (32.2-35.5) g/dl RDW Std Deviation (35.1-43.9) fL Plt Count (163-337) K/mm3 MPV (9.4-12.3) fl Neut % (Auto) (34.0-67.9) % Lymph % (Auto) (21.8-53.1) % Foard % (Auto) (5.3-12.2) % Eos % (Auto) (0.8-7.0) Baso % (Auto) (0.1-1.2) % Neut # (Auto) (1.78-5.38) K/mm3 Lymph # (Auto) (1.32-3.57) K/mm3 Foard # (Auto) (0.30-0.82) K/mm3 Eos # (Auto) (0.04-0.54) K/mm3 Baso # (Auto) (0.01-0.08) K/mm3 Neutrophils % (Manual) (40-60) % Band Neutrophils % (0-10) % Lymphocytes % (Manual) (20-40) % Atypical Lymphs % % Monocytes % (Manual) (2-10) % Eosinophils % (Manual) (0.8-7.0) % Basophils % (Manual) (0.2-1.2) Manual Slide Review Platelet Estimate Plt Morphology Comment RBC Morph Comment PT 10.7 (9.7-12.0) SECONDS INR 0.98 APTT 29 (22-31) SECONDS D-Dimer, Quantitative < 0.19 L (0.19-0.50) mg/L Puncture Site ABG pH (7.35-7.45) ABG pCO2 (35.0-45.0) mmHg ABG pO2 (80.0-100.0) mmHg ABG HCO3 (22.0-26.0) meq/L ABG O2 Saturation (96.0-97.0) % ABG Base Excess (-2-2.0) Cheo Test A-a Gradient mmHg O2 Delivery Device FiO2 (21.00-100.00) % PEEP cmH20 Pressure Support cmH2O Sodium (136-145) mEq/L Potassium (3.5-5.1) mEq/L Chloride (98-107) mEq/L Carbon Dioxide (21-32) mEq/L Anion Gap (5-15) BUN (7-18) mg/dL Creatinine (0.7-1.3) mg/dL Est Cr Clr Drug Dosing mL/min Estimated GFR (MDRD) (>60) mL/min BUN/Creatinine Ratio (14-18) Glucose (80-115) mg/dL POC Glucose (80-115) mg/dL Hemoglobin A1c (4.50-6.20) % Lactic Acid (0.4-2.0) mmol/L Calcium (8.5-10.1) mg/dL Magnesium (1.8-2.4) mg/dl Total Bilirubin (0.2-1.0) mg/dL AST (15-37) U/L ALT (16-63) U/L Alkaline Phosphatase (46-116) U/L CK-MB (CK-2) (0-3.6) ng/ml Troponin I (0.00-0.056) ng/mL C-Reactive Protein (<1.0) mg/dL NT-Pro-B Natriuret Pep (0-125) pg/mL Total Protein (6.4-8.2) g/dl Albumin (3.4-5.0) g/dl Globulin gm/dL Albumin/Globulin Ratio (1-2) TSH 3rd Generation (0.358-3.74) uIU/mL Urine Color (Yellow) Urine Appearance (Clear) Urine pH (5.0-8.0) Ur Specific Phelps (1.005-1.030) Urine Protein (Negative) Urine Glucose (UA) (Negative) Urine Ketones (Negative) Urine Occult Blood (Negative) Urine Nitrite (Negative) Urine Bilirubin (Negative) Urine Urobilinogen (0.2-1.0) Ur Leukocyte Esterase (Negative) Urine RBC (0-5) /hpf Urine WBC (0-5) /hpf Ur Squamous Epith Cells (0-5) /hpf Urine Bacteria (FEW) /hpf Urine Mucus (FEW) /hpf Mycoplasma pneumon IgM Negative (NEGATIVE) MRSA (PCR) 07/29/19 07/29/19 07/29/19 Range/Units 18:30 20:35 21:22 WBC (4.23-9.07) K/mm3 RBC (4.63-6.08) M/mm3 Hgb (13.7-17.5) gm/dl Hct (40.1-51.0) % MCV (79.0-92.2) fl MCH (25.7-32.2) pg MCHC (32.2-35.5) g/dl RDW Std Deviation (35.1-43.9) fL Plt Count (163-337) K/mm3 MPV (9.4-12.3) fl Neut % (Auto) (34.0-67.9) % Lymph % (Auto) (21.8-53.1) % Foard % (Auto) (5.3-12.2) % Eos % (Auto) (0.8-7.0) Baso % (Auto) (0.1-1.2) % Neut # (Auto) (1.78-5.38) K/mm3 Lymph # (Auto) (1.32-3.57) K/mm3 Foard # (Auto) (0.30-0.82) K/mm3 Eos # (Auto) (0.04-0.54) K/mm3 Baso # (Auto) (0.01-0.08) K/mm3 Neutrophils % (Manual) (40-60) % Band Neutrophils % (0-10) % Lymphocytes % (Manual) (20-40) % Atypical Lymphs % % Monocytes % (Manual) (2-10) % Eosinophils % (Manual) (0.8-7.0) % Basophils % (Manual) (0.2-1.2) Manual Slide Review Platelet Estimate Plt Morphology Comment RBC Morph Comment PT (9.7-12.0) SECONDS INR APTT (22-31) SECONDS D-Dimer, Quantitative (0.19-0.50) mg/L Puncture Site ABG pH (7.35-7.45) ABG pCO2 (35.0-45.0) mmHg ABG pO2 (80.0-100.0) mmHg ABG HCO3 (22.0-26.0) meq/L ABG O2 Saturation (96.0-97.0) % ABG Base Excess (-2-2.0) Cheo Test A-a Gradient mmHg O2 Delivery Device FiO2 (21.00-100.00) % PEEP cmH20 Pressure Support cmH2O Sodium (136-145) mEq/L Potassium (3.5-5.1) mEq/L Chloride (98-107) mEq/L Carbon Dioxide (21-32) mEq/L Anion Gap (5-15) BUN (7-18) mg/dL Creatinine (0.7-1.3) mg/dL Est Cr Clr Drug Dosing mL/min Estimated GFR (MDRD) (>60) mL/min BUN/Creatinine Ratio (14-18) Glucose (80-115) mg/dL POC Glucose 187 H (80-115) mg/dL Hemoglobin A1c (4.50-6.20) % Lactic Acid (0.4-2.0) mmol/L Calcium (8.5-10.1) mg/dL Magnesium (1.8-2.4) mg/dl Total Bilirubin (0.2-1.0) mg/dL AST (15-37) U/L ALT (16-63) U/L Alkaline Phosphatase (46-116) U/L CK-MB (CK-2) (0-3.6) ng/ml Troponin I (0.00-0.056) ng/mL C-Reactive Protein (<1.0) mg/dL NT-Pro-B Natriuret Pep (0-125) pg/mL Total Protein (6.4-8.2) g/dl Albumin (3.4-5.0) g/dl Globulin gm/dL Albumin/Globulin Ratio (1-2) TSH 3rd Generation (0.358-3.74) uIU/mL Urine Color Yellow (Yellow) Urine Appearance Clear (Clear) Urine pH 6.0 (5.0-8.0) Ur Specific Phelps 1.020 (1.005-1.030) Urine Protein Negative (Negative) Urine Glucose (UA) Negative (Negative) Urine Ketones Negative (Negative) Urine Occult Blood Trace-intact H (Negative) Urine Nitrite Negative (Negative) Urine Bilirubin Negative (Negative) Urine Urobilinogen 0.2 (0.2-1.0) Ur Leukocyte Esterase Negative (Negative) Urine RBC 5-10 H (0-5) /hpf Urine WBC 0-5 (0-5) /hpf Ur Squamous Epith Cells 0-5 (0-5) /hpf Urine Bacteria Occasional (FEW) /hpf Urine Mucus Rare (FEW) /hpf Mycoplasma pneumon IgM (NEGATIVE) MRSA (PCR) Negative 10/28/19 10/28/19 10/28/19 Range/Units 06:35 06:35 06:35 WBC 8.74 (4.23-9.07) K/mm3 RBC 5.26 (4.63-6.08) M/mm3 Hgb 14.9 (13.7-17.5) gm/dl Hct 47.3 (40.1-51.0) % MCV 89.9 (79.0-92.2) fl MCH 28.3 (25.7-32.2) pg MCHC 31.5 L (32.2-35.5) g/dl RDW Std Deviation 48.3 H (35.1-43.9) fL Plt Count 186 (163-337) K/mm3 MPV 11.7 (9.4-12.3) fl Neut % (Auto) 86.5 H (34.0-67.9) % Lymph % (Auto) 9.5 L (21.8-53.1) % Foard % (Auto) 3.5 L (5.3-12.2) % Eos % (Auto) 0.1 L (0.8-7.0) Baso % (Auto) 0.2 (0.1-1.2) % Neut # (Auto) 7.55 H (1.78-5.38) K/mm3 Lymph # (Auto) 0.83 L (1.32-3.57) K/mm3 Foard # (Auto) 0.31 (0.30-0.82) K/mm3 Eos # (Auto) 0.01 L (0.04-0.54) K/mm3 Baso # (Auto) 0.02 (0.01-0.08) K/mm3 Neutrophils % (Manual) (40-60) % Band Neutrophils % (0-10) % Lymphocytes % (Manual) (20-40) % Atypical Lymphs % % Monocytes % (Manual) (2-10) % Eosinophils % (Manual) (0.8-7.0) % Basophils % (Manual) (0.2-1.2) Manual Slide Review Abnormal smear Platelet Estimate Plt Morphology Comment RBC Morph Comment PT (9.7-12.0) SECONDS INR APTT (22-31) SECONDS D-Dimer, Quantitative (0.19-0.50) mg/L Puncture Site ABG pH (7.35-7.45) ABG pCO2 (35.0-45.0) mmHg ABG pO2 (80.0-100.0) mmHg ABG HCO3 (22.0-26.0) meq/L ABG O2 Saturation (96.0-97.0) % ABG Base Excess (-2-2.0) Cheo Test A-a Gradient mmHg O2 Delivery Device FiO2 (21.00-100.00) % PEEP cmH20 Pressure Support cmH2O Sodium 140 (136-145) mEq/L Potassium 4.6 (3.5-5.1) mEq/L Chloride 102 (98-107) mEq/L Carbon Dioxide 31 (21-32) mEq/L Anion Gap 11.6 (5-15) BUN 19 H (7-18) mg/dL Creatinine 0.9 (0.7-1.3) mg/dL Est Cr Clr Drug Dosing 86.74 mL/min Estimated GFR (MDRD) > 60 (>60) mL/min BUN/Creatinine Ratio 21.1 H (14-18) Glucose 319 H (80-115) mg/dL POC Glucose (80-115) mg/dL Hemoglobin A1c (4.50-6.20) % Lactic Acid (0.4-2.0) mmol/L Calcium 9.2 (8.5-10.1) mg/dL Magnesium 2.0 (1.8-2.4) mg/dl Total Bilirubin 0.5 (0.2-1.0) mg/dL AST 17 (15-37) U/L ALT 29 (16-63) U/L Alkaline Phosphatase 97 (46-116) U/L CK-MB (CK-2) (0-3.6) ng/ml Troponin I (0.00-0.056) ng/mL C-Reactive Protein 3.2 H* (<1.0) mg/dL NT-Pro-B Natriuret Pep 111 (0-125) pg/mL Total Protein 7.4 (6.4-8.2) g/dl Albumin 3.4 (3.4-5.0) g/dl Globulin 4.0 gm/dL Albumin/Globulin Ratio 0.9 L (1-2) TSH 3rd Generation 0.503 (0.358-3.74) uIU/mL Urine Color (Yellow) Urine Appearance (Clear) Urine pH (5.0-8.0) Ur Specific Phelps (1.005-1.030) Urine Protein (Negative) Urine Glucose (UA) (Negative) Urine Ketones (Negative) Urine Occult Blood (Negative) Urine Nitrite (Negative) Urine Bilirubin (Negative) Urine Urobilinogen (0.2-1.0) Ur Leukocyte Esterase (Negative) Urine RBC (0-5) /hpf Urine WBC (0-5) /hpf Ur Squamous Epith Cells (0-5) /hpf Urine Bacteria (FEW) /hpf Urine Mucus (FEW) /hpf Mycoplasma pneumon IgM (NEGATIVE) MRSA (PCR) 07/30/19 07/30/19 07/30/19 Range/Units 06:35 06:39 12:01 WBC (4.23-9.07) K/mm3 RBC (4.63-6.08) M/mm3 Hgb (13.7-17.5) gm/dl Hct (40.1-51.0) % MCV (79.0-92.2) fl MCH (25.7-32.2) pg MCHC (32.2-35.5) g/dl RDW Std Deviation (35.1-43.9) fL Plt Count (163-337) K/mm3 MPV (9.4-12.3) fl Neut % (Auto) (34.0-67.9) % Lymph % (Auto) (21.8-53.1) % Foard % (Auto) (5.3-12.2) % Eos % (Auto) (0.8-7.0) Baso % (Auto) (0.1-1.2) % Neut # (Auto) (1.78-5.38) K/mm3 Lymph # (Auto) (1.32-3.57) K/mm3 Foard # (Auto) (0.30-0.82) K/mm3 Eos # (Auto) (0.04-0.54) K/mm3 Baso # (Auto) (0.01-0.08) K/mm3 Neutrophils % (Manual) (40-60) % Band Neutrophils % (0-10) % Lymphocytes % (Manual) (20-40) % Atypical Lymphs % % Monocytes % (Manual) (2-10) % Eosinophils % (Manual) (0.8-7.0) % Basophils % (Manual) (0.2-1.2) Manual Slide Review Platelet Estimate Plt Morphology Comment RBC Morph Comment PT (9.7-12.0) SECONDS INR APTT (22-31) SECONDS D-Dimer, Quantitative (0.19-0.50) mg/L Puncture Site ABG pH (7.35-7.45) ABG pCO2 (35.0-45.0) mmHg ABG pO2 (80.0-100.0) mmHg ABG HCO3 (22.0-26.0) meq/L ABG O2 Saturation (96.0-97.0) % ABG Base Excess (-2-2.0) Cheo Test A-a Gradient mmHg O2 Delivery Device FiO2 (21.00-100.00) % PEEP cmH20 Pressure Support cmH2O Sodium (136-145) mEq/L Potassium (3.5-5.1) mEq/L Chloride (98-107) mEq/L Carbon Dioxide (21-32) mEq/L Anion Gap (5-15) BUN (7-18) mg/dL Creatinine (0.7-1.3) mg/dL Est Cr Clr Drug Dosing mL/min Estimated GFR (MDRD) (>60) mL/min BUN/Creatinine Ratio (14-18) Glucose (80-115) mg/dL POC Glucose 318 H 359 H (80-115) mg/dL Hemoglobin A1c 8.80 H (4.50-6.20) % Lactic Acid (0.4-2.0) mmol/L Calcium (8.5-10.1) mg/dL Magnesium (1.8-2.4) mg/dl Total Bilirubin (0.2-1.0) mg/dL AST (15-37) U/L ALT (16-63) U/L Alkaline Phosphatase (46-116) U/L CK-MB (CK-2) (0-3.6) ng/ml Troponin I (0.00-0.056) ng/mL C-Reactive Protein (<1.0) mg/dL NT-Pro-B Natriuret Pep (0-125) pg/mL Total Protein (6.4-8.2) g/dl Albumin (3.4-5.0) g/dl Globulin gm/dL Albumin/Globulin Ratio (1-2) TSH 3rd Generation (0.358-3.74) uIU/mL Urine Color (Yellow) Urine Appearance (Clear) Urine pH (5.0-8.0) Ur Specific Phelps (1.005-1.030) Urine Protein (Negative) Urine Glucose (UA) (Negative) Urine Ketones (Negative) Urine Occult Blood (Negative) Urine Nitrite (Negative) Urine Bilirubin (Negative) Urine Urobilinogen (0.2-1.0) Ur Leukocyte Esterase (Negative) Urine RBC (0-5) /hpf Urine WBC (0-5) /hpf Ur Squamous Epith Cells (0-5) /hpf Urine Bacteria (FEW) /hpf Urine Mucus (FEW) /hpf Mycoplasma pneumon IgM (NEGATIVE) MRSA (PCR) Kyle Results Last 24 Hours: Microbiology 07/29/19 22:50 Influenza Type A Antigen Screen - Final Nasal, Unspecified NEGATIVE INFLUENZA A VIRUS AG REFERENCE RANGE: NEGATIVE Influenza Type B Antigen Screen - Final NEGATIVE INFLUENZA B VIRUS AG REFERENCE RANGE: NEGATIVE Med Orders - Current: Current Medications Acetaminophen (Tylenol) 650 mg PO Q4H PRN PRN Reason: Pain (Mild 1-3)/fever Albuterol (Proventil Neb Soln) 2.5 mg NEB Q2H PRN PRN Reason: Shortness Of Breath/wheezing Albuterol/Ipratropium (Duoneb 3.0-0.5 Mg/3 Ml) 3 ml NEB Q4H [facility] Last Admin: 07/30/19 12:48 Dose: 3 ml Aspirin (Aspirin) 81 mg PO DAILY [facility] Last Admin: 07/30/19 09:01 Dose: 81 mg Azithromycin (Zithromax) 250 mg PO Q24H [facility] Stop: 08/03/19 19:01 Buspirone HCl (Buspar) 30 mg PO BEDTIME [facility] Last Admin: 07/29/19 22:41 Dose: 30 mg Enoxaparin Sodium (Lovenox) 40 mg SUBCUT BID [facility] Last Admin: 07/30/19 08:54 Dose: 40 mg Fluoxetine HCl (Prozac) 60 mg PO DAILY [facility] Last Admin: 07/30/19 08:58 Dose: 60 mg Furosemide (Lasix) 40 mg PO DAILY [facility] Last Admin: 07/30/19 09:02 Dose: 40 mg Ceftriaxone Sodium 2 gm/ (Sodium Chloride) 100 mls @ 200 mls/hr IV Q24H [facility] Last Admin: 07/29/19 19:15 Dose: 200 mls/hr Ibuprofen (Motrin) 600 mg PO Q6H PRN PRN Reason: Pain (moderate 4-6) Insulin Glargine (Lantus) 55 unit SUBCUT BEDTIME [facility] Insulin Glargine (Lantus) 15 unit SUBCUT QPM [facility] Insulin Human Lispro (Humalog) 15 unit SUBCUT TIDMEALS [facility] Last Admin: 07/30/19 12:25 Dose: 15 unit Insulin Human Lispro (Humalog) 0 unit SUBCUT QIDACANDBED [facility]; Protocol Metoprolol Succinate (Toprol Xl) 25 mg PO DAILY [facility] Last Admin: 07/30/19 08:59 Dose: 25 mg Nystatin (Nystatin Crm) 1 gm TOP BID PRN PRN Reason: ayad Nystatin (Nystatin Oral Syringe) 500,000 unit PO QID [facility] Last Admin: 07/30/19 12:25 Dose: 500,000 unit Ondansetron HCl (Zofran) 4 mg IV Q4H PRN PRN Reason: Nausea/Vomiting Oxcarbazepine (Trileptal) 300 mg PO BID [facility] Last Admin: 07/30/19 09:00 Dose: 300 mg Potassium Chloride (Klor-Con M20) 20 meq PO DAILY [facility] Last Admin: 07/30/19 09:02 Dose: 20 meq Prednisone (Prednisone) 40 mg PO WITHBREAKFAST [facility] Last Admin: 07/30/19 07:22 Dose: 40 mg Rosuvastatin Calcium (Crestor) 10 mg PO DAILY [facility] Last Admin: 07/30/19 09:01 Dose: 10 mg Sodium Chloride (Saline Flush) 10 ml FLUSH ASDIRECTED PRN PRN Reason: Keep Vein Open Last Admin: 07/29/19 17:39 Dose: 10 ml Discontinued Medications Acetaminophen (Tylenol) 975 mg PO NOW ONE Stop: 07/29/19 17:29 Last Admin: 07/29/19 17:39 Dose: 975 mg Furosemide (Lasix) 60 mg IVPUSH NOW ONE Stop: 07/29/19 17:29 Last Admin: 07/29/19 17:39 Dose: 60 mg Azithromycin 1,000 mg/ Sodium (Chloride) 500 mls @ 250 mls/hr IV ONETIME ONE Stop: 07/29/19 21:07 Last Admin: 07/29/19 19:46 Dose: 250 mls/hr Insulin Human Lispro (Humalog) 0 unit SUBCUT QIDACANDBED [facility]; Protocol Last Admin: 07/30/19 12:25 Dose: 5 unit Lidocaine HCl (Xylocaine 2% Jelly) 10 ml MUCMEM ONETIME ONE Stop: 07/29/19 17:47 Last Admin: 07/29/19 17:48 Dose: 10 ml Prednisone (Prednisone) 40 mg PO ONETIME ONE Stop: 07/29/19 21:40 Last Admin: 07/29/19 22:42 Dose: 40 mg Succinylcholine Chloride (Quelicin) Confirm Administered Dose 200 mg .ROUTE .STK -MED ONE Stop: 07/29/19 17:19 Last Admin: 07/30/19 08:30 Dose: Not Given - Exam Quality Assessment: Supplemental Oxygen General: Alert HEENT: Pupils Equal Neck: Supple Lungs: Clear to Auscultation, Normal Respiratory Effort Cardiovascular: Regular Rate, Regular Rhythm GI/Abdominal Exam: Normal Bowel Sounds, Soft, Distended (Morbidly obese) Extremities: Pedal Edema (2-3+ bilateral pitting edema) Skin: Warm, Dry, Intact Psy/Mental Status: Alert, Normal Affect, Normal Mood - Problem List Review Problem List Initiated/Reviewed/Updated: Yes - My Orders Last 24 Hours: My Active Orders 07/29/19 21:23 Up ad Lo [RC] ASDIRECTED Acetaminophen [Tylenol] 650 mg PO Q4H PRN Albuterol [Proventil Neb Soln] 2.5 mg NEB Q2H PRN Ibuprofen [Motrin] 600 mg PO Q6H PRN Ondansetron [Zofran] 4 mg IV Q4H PRN Resuscitation Status Routine 07/29/19 21:24 VTE/DVT Education [RC] PER UNIT ROUTINE Vital Signs [RC] Q4H 07/29/19 21:29 RT Aerosol Therapy [RC] ASDIRECTED 07/29/19 21:30 Albuterol/Ipratropium [DuoNeb 3.0-0.5 MG/3 ML] 3 ml NEB Q4H 07/29/19 21:33 OT Evaluation and Treatment [CONS] Routine PT Evaluation and Treatment [CONS] Routine 07/29/19 21:37 Blood Glucose Check, Bedside [RC] QIDACANDBED 07/29/19 21:41 CULTURE SPUTUM + SMEAR [RM] Routine 07/29/19 21:44 Nystatin [Nystatin Crm] 1 gm TOP BID PRN 07/29/19 21:50 RESPIRATORY PANEL Routine 07/29/19 22:00 busPIRone [Buspar] 30 mg PO BEDTIME 07/29/19 22:50 LEGIONELLA ANTIGEN [MREF] Routine STREP PNEUMONIAE ANTIGEN [MREF] Routine 07/30/19 06:35 PROCALCITONIN [REF] Routine 07/30/19 07:00 Insulin Lispro [HumaLOG] 15 unit SUBCUT TIDMEALS predniSONE 40 mg PO WITHBREAKFAST 07/30/19 09:00 Aspirin 81 mg PO DAILY Enoxaparin [Lovenox] 40 mg SUBCUT BID FLUoxetine [PROzac] 60 mg PO DAILY Furosemide [Lasix] 40 mg PO DAILY Metoprolol Succinate [Toprol XL] 25 mg PO DAILY Nystatin [Nystatin Oral Syringe] 500,000 unit PO QID OXcarbazepine [Trileptal] 300 mg PO BID Potassium Chloride [Klor-Con M20] 20 meq PO DAILY Rosuvastatin [Crestor] 10 mg PO DAILY 07/30/19 09:10 Intake and Output Strict [RC] Q2HR 07/30/19 13:40 Blood Glucose Check, Bedside [RC] QIDACANDBED 07/30/19 17:00 Insulin Lispro [HumaLOG] See Protocol SUBCUT QIDACANDBED 07/30/19 18:00 Insulin Glarg,Human.Rec.Analog [LantUS] 15 unit SUBCUT QPM 07/30/19 19:00 Azithromycin [Zithromax] 250 mg PO Q24H 07/30/19 21:00 Insulin Glarg,Human.Rec.Analog [LantUS] 55 unit SUBCUT BEDTIME 07/30/19 Breakfast ADA Diabetic [[place] [employer] Diet] [DIET] 07/31/19 05:11 C-REACTIVE PROTEIN [CHEM] AM CBC WITH AUTO DIFF [HEME] AM COMPREHENSIVE METABOLIC PN,CMP [CHEM] AM MAGNESIUM [CHEM] AM 08/01/19 05:11 C-REACTIVE PROTEIN [CHEM] AM CBC WITH AUTO DIFF [HEME] AM COMPREHENSIVE METABOLIC PN,CMP [CHEM] AM MAGNESIUM [CHEM] AM 08/02/19 05:11 C-REACTIVE PROTEIN [CHEM] AM CBC WITH AUTO DIFF [HEME] AM COMPREHENSIVE METABOLIC PN,CMP [CHEM] AM MAGNESIUM [CHEM] AM 08/03/19 05:11 C-REACTIVE PROTEIN [CHEM] AM CBC WITH AUTO DIFF [HEME] AM COMPREHENSIVE METABOLIC PN,CMP [CHEM] AM MAGNESIUM [CHEM] AM - Plan Plan:: Assessment * Acute exacerbation of COPD with respiratory failure; hypoxia and hypercapnia. * It is unknown if he has had a formal workup and diagnosis of COPD or if it is just presumed. Hypoxemia and hypercapnia is likely worse 2/2 restrictive airway disease 2/2 obesity. * ABG initially showed elevated PCO2 and he presented with hypoxemia on oxygen saturation * Initially placed on BiPAP but was able to wean to Ventimask * Febrile illness with temperature of 100.4 in the emergency room * Started on Rocephin and Zithromax in ER * Type 2 Diabetes; insulin dependent * Lantus not given last night. * History of CHF, sleep apnea, morbid obesity, urinary in continence, seizure, HTN, cardiomegaly, anxiety, depression, developmental delay, status dermatitis Plan * Admit to medical floor on telemetry * Continue Rocephin and Zithromax * Prednisone 40 daily for COPD exacerbation. * Get respiratory panel, influenza screen, mycoplasma, procalcitonin * Blood and sputum cultures. * BiPAP tonight: setting 14/7 * FiO2 to keep SpO2 > 92 < 95% * Reconcile home meds: hold metformin * Increase SSI to moderate in addition to home insulin. BS should increase 2/2 prednisone. * PT/OT consulted * Incentive spirometry. * VTE prophylaxis with Lovenox * Code status: Full Code * LOS 3-4 days.
[2019-07-30] MEDS ORDERED: Insulin Glarg,Human.Rec.Analog 100 UNIT/ML ML SUBCUT SCH ×4 (16:00→21:00)
[2019-07-30] MEDS ORDERED: Insulin Lispro 100 Units/ML 3 ML Vial SUBCUT SCH (17:00)
[2019-07-30] MEDS: cefTRIAXone 2 GM in Sodium Chloride 0.9% 100 ML IV SCH (18:27)
[2019-07-30] MEDS ORDERED: Azithromycin 250 MG Tab PO SCH (19:00)
[2019-07-30] MEDS: busPIRone 15 MG Tab PO SCH (20:16)
[2019-07-31] MEDS: Albuterol/Ipratropium 3.0-0.5 MG/3 ML Neb Soln NEB SCH ×3 (01:33→11:14)
[2019-07-31] MEDS: predniSONE 20 MG Tab PO SCH (06:03)
[2019-07-31] MEDS: Rosuvastatin 10 MG Tab PO SCH (08:28)
[2019-07-31] MEDS: OXcarbazepine 300 MG Tab PO SCH (08:29)
[2019-07-31] MEDS: Potassium Chloride 20 MEQ Tab.ER PO SCH (08:32)
[2019-07-31] MEDS: FLUoxetine 20 MG Cap PO SCH (08:32)
[2019-07-31] MEDS: Aspirin 81 MG Tab.Chew PO SCH (08:32)
[2019-07-31] MEDS: Furosemide 40 MG Tab PO SCH (08:33)
[2019-07-31] MEDS: Metoprolol Succinate 25 MG Tab.ER PO SCH (08:37)
[2019-07-31] MEDS: Enoxaparin 40 MG/0.4 ML Syringe SUBCUT SCH (08:40)
[2019-07-31] MEDS: Insulin Lispro 100 Units/ML 3 ML Vial SUBCUT SCH ×4 (08:43→11:07)
--- NOTE | 2019-07-31 11:57 | PCM.DCSUM1 ---
Discharge Summary - Hospital Course HPI Initial Comments: 63-year-old male from [facility] resident who is a morbidly obese male with history of COPD and hypoxemia on 2 L nasal cannula normally at home presents to the emergency room with hypoxemia. Patient states that for at least a week he has had some increasing shortness of breath. He started having lower oxygen saturations over the weekend and the intermediate staff today found his oxygen saturations very low this afternoon. EMS was called and his saturations were found to be in the low 80s. Even on 10 L mask they had difficulty keeping his oxygenation in the upper 80s. Patient was alert and oriented when he arrived in the emergency room. He had moderate respiratory distress and was placed on BiPAP. Patient denies any fever, chills, or night sweats. He does have some mental limitations so answers questions simply and not completely. Patient does have a cough and occasionally has green sputum. In the emergency room they did find him to have a temperature of 100.4. Emergency room labs: CBC 7.0, hemoglobin 14.6, platelets 180, d-dimer less than 0.19, INR 0.98, APTT 29, troponin less than 0.017, BNP was 118, she wrecked her protein 3.7, sodium 145, potassium 4.5, chloride 106, bicarbonate 34, BUN 20, creatinine 0.8, platelet 198, UA WBC 0-5. ABG: PH 7.39, PCO2 of 51.3, PO2 166.0 on BiPAP, HCO3 30.3. There able to take him off BiPAP and put him to a Ventimask at 36%. Portable chest x-ray showed cardiomegaly with diffuse pulmonary vascular congestion with no definitive infiltrate. He was given Rocephin and Zithromax in the ER. EKG: Difficult to interpret because of low voltage due to obesity. Sinus rhythm with ventricular rate of 87 bpm. Left axis deviation. Neuro QRS complex. She really decreased QRS voltage. Diagnosis: Stroke: No - Discharge Data Discharge Date: 07/31/19 Discharge Disposition: DC/Tfer to Long-Term Care 63 Condition: Good - Referral to Home Health Primary Care Physician: Samuel Hoyos MD - Patient Summary/Data Consults: Consultations 07/29/19 21:33 OT Evaluation and Treatment [CONS] Routine PT Evaluation and Treatment [CONS] Routine Hospital Course: * Acute exacerbation of COPD with respiratory failure; hypoxia and hypercapnia. * It is unknown if he has had a formal workup and diagnosis of COPD or if it is just presumed. Hypoxemia and hypercapnia is likely worse 2/2 restrictive airway disease 2/2 obesity. * ABG initially showed elevated PCO2 and he presented with hypoxemia on oxygen saturation * Initially placed on BiPAP but was able to wean to Ventimask * Febrile illness with temperature of 100.4 in the emergency room * Started on Rocephin and Zithromax in ER * Type 2 Diabetes; insulin dependent * Blood sugars have been elevated 2/2 prednison * History of CHF, sleep apnea, morbid obesity, urinary in continence, seizure, HTN, cardiomegaly, anxiety, depression, developmental delay, status dermatitis Plan * Admit to medical floor on telemetry * Continue Rocephin and Zithromax * Prednisone 40 daily for COPD exacerbation. * Respiratory panel - negative, influenza screen - negative, mycoplasma - negative, procalcitonin - negative * Blood - negative * Legionella - negative * Strep - Negative * BiPAP tonight: setting 15/04 * FiO2 to keep SpO2 > 92 < 95% * PT/OT consulted * Incentive spirometry. - Patient Instructions Diet: Heart Healthy Diet Driving: Do Not Drive Showering/Bathing: May Shower - Discharge Plan *PRESCRIPTION DRUG MONITORING PROGRAM REVIEWED*: Not Applicable *COPY OF PRESCRIPTION DRUG MONITORING REPORT IN PATIENT YESI: Not Applicable Prescriptions/Med Rec: Azithromycin [Zithromax] 250 mg PO Q24H #3 tablet Home Medications: Home Meds Aspirin 81 mg PO DAILY 11/08/15 [History] FLUoxetine [PROzac] 60 mg PO DAILY 11/08/15 [History] Metoprolol Succinate [Toprol XL] 25 mg PO DAILY 11/08/15 [History] Rosuvastatin [Crestor] 10 mg PO DAILY 11/08/15 [History] Furosemide [Lasix] 40 mg PO DAILY 03/13/19 [History] Nystatin 1 applic TOP BID PRN 03/13/19 [History] Potassium Chloride [K-Tab ER] 20 meq PO DAILY 03/13/19 [History] Triamcinolone Acetonide [Triamcinolone Acetonide 0.1% Crm] 1 applic TOP BID PRN 03/13/19 [History] busPIRone HCl [busPIRone] 30 mg PO BEDTIME 03/13/19 [History] Albuterol/Ipratropium [DuoNeb 3.0-0.5 MG/3 ML] 3 ml NEB Q4H PRN #120 neb [Rx] Insulin Lispro [HumaLOG] 0 unit SUBCUT QIDACANDBED vial 03/20/19 [Rx] Ibuprofen 3 tab PO Q6HR PRN 07/29/19 [History] Insulin Glarg,Human.Rec.Analog [Lantus] 55 unit SUBCUT BEDTIME 07/29/19 [History ] Insulin Lispro [HumaLOG] 15 unit SUBCUT TIDMEALS 07/29/19 [History] OXcarbazepine [Trileptal] 300 mg PO BID 07/29/19 [History] metFORMIN [Glucophage XR] 1,000 mg PO DAILY 07/29/19 [History] Azithromycin [Zithromax] 250 mg PO Q24H #3 tablet 07/31/19 [Rx] Oxygen Therapy Mode: Nasal Cannula Oxygen Flow Rate (L/min): 2 Maintain SpO2% greater than: 90 Patient Handouts: Chronic Obstructive Pulmonary Disease, Sepsis, Adult, Heart Failure Forms: ED Department Discharge Referrals: Samuel Hoyos MD [Primary Care Provider] - (August 20 at 1130) - Discharge Summary/Plan Comment DC Time >30 min.: Yes Discharge Summary/Plan Comment: No cause of significant hypoxemia found. He hasn't had significant hypoxemia since admission. Follow up with PCP this week. - General Info Date of Service: 07/31/19 Admission Dx/Problem (Free Text: Admission Diagnosis/Problem Admission Diagnosis/Problem Acute on chronic respiratory failure - Review of Systems General: Reports: No Symptoms HEENT: Reports: No Symptoms Pulmonary: Reports: No Symptoms Cardiovascular: Reports: No Symptoms - Patient Data Vitals - Most Recent: Last Vital Signs Temp 98.4 F 07/31/19 08:14 Pulse 90 07/31/19 08:37 Resp 20 07/31/19 08:14 BP 100/70 07/31/19 08:37 Pulse Ox 92 L 07/31/19 11:16 Weight - Most Recent: 347 lb 12.8 oz I&O - Last 24 hours: Intake & Output 07/30/19 07/31/19 07/31/19 22:59 06:59 14:59 Intake Total 800 600 Output Total 800 314 Balance 0 286 Lab Results - Last 24 hrs: Laboratory Results - last 24 hr 07/29/19 07/30/19 07/30/19 Range/Units 21:50 06:35 12:01 WBC (4.23-9.07) K/mm3 RBC (4.63-6.08) M/mm3 Hgb (13.7-17.5) gm/dl Hct (40.1-51.0) % MCV (79.0-92.2) fl MCH (25.7-32.2) pg MCHC (32.2-35.5) g/dl RDW Std Deviation (35.1-43.9) fL Plt Count (163-337) K/mm3 MPV (9.4-12.3) fl Neut % (Auto) (34.0-67.9) % Lymph % (Auto) (21.8-53.1) % Smith % (Auto) (5.3-12.2) % Eos % (Auto) (0.8-7.0) Baso % (Auto) (0.1-1.2) % Neut # (Auto) (1.78-5.38) K/mm3 Lymph # (Auto) (1.32-3.57) K/mm3 Smith # (Auto) (0.30-0.82) K/mm3 Eos # (Auto) (0.04-0.54) K/mm3 Baso # (Auto) (0.01-0.08) K/mm3 Sodium (136-145) mEq/L Potassium (3.5-5.1) mEq/L Chloride (98-107) mEq/L Carbon Dioxide (21-32) mEq/L Anion Gap (5-15) BUN (7-18) mg/dL Creatinine (0.7-1.3) mg/dL Est Cr Clr Drug Dosing mL/min Estimated GFR (MDRD) (>60) mL/min BUN/Creatinine Ratio (14-18) Glucose (80-115) mg/dL POC Glucose 359 H (80-115) mg/dL Calcium (8.5-10.1) mg/dL Magnesium (1.8-2.4) mg/dl Total Bilirubin (0.2-1.0) mg/dL AST (15-37) U/L ALT (16-63) U/L Alkaline Phosphatase (46-116) U/L C-Reactive Protein (<1.0) mg/dL Total Protein (6.4-8.2) g/dl Albumin (3.4-5.0) g/dl Globulin gm/dL Albumin/Globulin Ratio (1-2) Procalcitonin 0.07 (<0.10) ng/mL Adenovirus (PCR) Not detected (Not Detected) B. pertussis DNA (PCR) Not detected (Not Detected) B.parapertussis DNA PCR Not detected (Not Detected) C. pneumoniae DNA (PCR) Not detected (Not Detected) Coronavirus (PCR) Not detected (Not Detected) Human Metapneumovir PCR Not detected (Not Detected) Influenza A (RT-PCR) Not detected (Not Detected) Influenza B (RT-PCR) Not detected (Not Detected) M. pneumoniae (PCR) Not detected (Not Detected) Parainfluen 1,2,3,4 PCR Not detected (Not Detected) RSV (PCR) Not detected (Not Detected) Entero/Rhino (PCR) Not detected (Not Detected) 07/30/19 07/30/19 07/30/19 Range/Units 17:20 18:32 19:40 WBC (4.23-9.07) K/mm3 RBC (4.63-6.08) M/mm3 Hgb (13.7-17.5) gm/dl Hct (40.1-51.0) % MCV (79.0-92.2) fl MCH (25.7-32.2) pg MCHC (32.2-35.5) g/dl RDW Std Deviation (35.1-43.9) fL Plt Count (163-337) K/mm3 MPV (9.4-12.3) fl Neut % (Auto) (34.0-67.9) % Lymph % (Auto) (21.8-53.1) % Smith % (Auto) (5.3-12.2) % Eos % (Auto) (0.8-7.0) Baso % (Auto) (0.1-1.2) % Neut # (Auto) (1.78-5.38) K/mm3 Lymph # (Auto) (1.32-3.57) K/mm3 Smith # (Auto) (0.30-0.82) K/mm3 Eos # (Auto) (0.04-0.54) K/mm3 Baso # (Auto) (0.01-0.08) K/mm3 Sodium (136-145) mEq/L Potassium (3.5-5.1) mEq/L Chloride (98-107) mEq/L Carbon Dioxide (21-32) mEq/L Anion Gap (5-15) BUN (7-18) mg/dL Creatinine (0.7-1.3) mg/dL Est Cr Clr Drug Dosing mL/min Estimated GFR (MDRD) (>60) mL/min BUN/Creatinine Ratio (14-18) Glucose 415 H (80-115) mg/dL POC Glucose 344 H 302 H (80-115) mg/dL Calcium (8.5-10.1) mg/dL Magnesium (1.8-2.4) mg/dl Total Bilirubin (0.2-1.0) mg/dL AST (15-37) U/L ALT (16-63) U/L Alkaline Phosphatase (46-116) U/L C-Reactive Protein (<1.0) mg/dL Total Protein (6.4-8.2) g/dl Albumin (3.4-5.0) g/dl Globulin gm/dL Albumin/Globulin Ratio (1-2) Procalcitonin (<0.10) ng/mL Adenovirus (PCR) (Not Detected) B. pertussis DNA (PCR) (Not Detected) B.parapertussis DNA PCR (Not Detected) C. pneumoniae DNA (PCR) (Not Detected) Coronavirus (PCR) (Not Detected) Human Metapneumovir PCR (Not Detected) Influenza A (RT-PCR) (Not Detected) Influenza B (RT-PCR) (Not Detected) M. pneumoniae (PCR) (Not Detected) Parainfluen 1,2,3,4 PCR (Not Detected) RSV (PCR) (Not Detected) Entero/Rhino (PCR) (Not Detected) 07/30/19 07/31/19 07/31/19 Range/Units 20:58 06:00 06:04 WBC 9.47 H (4.23-9.07) K/mm3 RBC 4.86 (4.63-6.08) M/mm3 Hgb 13.9 (13.7-17.5) gm/dl Hct 43.6 (40.1-51.0) % MCV 89.7 (79.0-92.2) fl MCH 28.6 (25.7-32.2) pg MCHC 31.9 L (32.2-35.5) g/dl RDW Std Deviation 48.7 H (35.1-43.9) fL Plt Count 223 (163-337) K/mm3 MPV 12.2 (9.4-12.3) fl Neut % (Auto) 65.2 (34.0-67.9) % Lymph % (Auto) 20.7 L (21.8-53.1) % Smith % (Auto) 13.0 H (5.3-12.2) % Eos % (Auto) 0.7 L (0.8-7.0) Baso % (Auto) 0.2 (0.1-1.2) % Neut # (Auto) 6.17 H (1.78-5.38) K/mm3 Lymph # (Auto) 1.96 (1.32-3.57) K/mm3 Smith # (Auto) 1.23 H (0.30-0.82) K/mm3 Eos # (Auto) 0.07 (0.04-0.54) K/mm3 Baso # (Auto) 0.02 (0.01-0.08) K/mm3 Sodium (136-145) mEq/L Potassium (3.5-5.1) mEq/L Chloride (98-107) mEq/L Carbon Dioxide (21-32) mEq/L Anion Gap (5-15) BUN (7-18) mg/dL Creatinine (0.7-1.3) mg/dL Est Cr Clr Drug Dosing mL/min Estimated GFR (MDRD) (>60) mL/min BUN/Creatinine Ratio (14-18) Glucose (80-115) mg/dL POC Glucose 242 H 170 H (80-115) mg/dL Calcium (8.5-10.1) mg/dL Magnesium (1.8-2.4) mg/dl Total Bilirubin (0.2-1.0) mg/dL AST (15-37) U/L ALT (16-63) U/L Alkaline Phosphatase (46-116) U/L C-Reactive Protein (<1.0) mg/dL Total Protein (6.4-8.2) g/dl Albumin (3.4-5.0) g/dl Globulin gm/dL Albumin/Globulin Ratio (1-2) Procalcitonin (<0.10) ng/mL Adenovirus (PCR) (Not Detected) B. pertussis DNA (PCR) (Not Detected) B.parapertussis DNA PCR (Not Detected) C. pneumoniae DNA (PCR) (Not Detected) Coronavirus (PCR) (Not Detected) Human Metapneumovir PCR (Not Detected) Influenza A (RT-PCR) (Not Detected) Influenza B (RT-PCR) (Not Detected) M. pneumoniae (PCR) (Not Detected) Parainfluen 1,2,3,4 PCR (Not Detected) RSV (PCR) (Not Detected) Entero/Rhino (PCR) (Not Detected) 07/31/19 Range/Units 06:04 WBC (4.23-9.07) K/mm3 RBC (4.63-6.08) M/mm3 Hgb (13.7-17.5) gm/dl Hct (40.1-51.0) % MCV (79.0-92.2) fl MCH (25.7-32.2) pg MCHC (32.2-35.5) g/dl RDW Std Deviation (35.1-43.9) fL Plt Count (163-337) K/mm3 MPV (9.4-12.3) fl Neut % (Auto) (34.0-67.9) % Lymph % (Auto) (21.8-53.1) % Smith % (Auto) (5.3-12.2) % Eos % (Auto) (0.8-7.0) Baso % (Auto) (0.1-1.2) % Neut # (Auto) (1.78-5.38) K/mm3 Lymph # (Auto) (1.32-3.57) K/mm3 Smith # (Auto) (0.30-0.82) K/mm3 Eos # (Auto) (0.04-0.54) K/mm3 Baso # (Auto) (0.01-0.08) K/mm3 Sodium 145 (136-145) mEq/L Potassium 3.7 (3.5-5.1) mEq/L Chloride 105 (98-107) mEq/L Carbon Dioxide 33 H (21-32) mEq/L Anion Gap 10.7 (5-15) BUN 23 H (7-18) mg/dL Creatinine 0.9 (0.7-1.3) mg/dL Est Cr Clr Drug Dosing 86.74 mL/min Estimated GFR (MDRD) > 60 (>60) mL/min BUN/Creatinine Ratio 25.6 H (14-18) Glucose 154 H (80-115) mg/dL POC Glucose (80-115) mg/dL Calcium 8.9 (8.5-10.1) mg/dL Magnesium 2.0 (1.8-2.4) mg/dl Total Bilirubin 0.5 (0.2-1.0) mg/dL AST 8 L (15-37) U/L ALT 26 (16-63) U/L Alkaline Phosphatase 83 (46-116) U/L C-Reactive Protein 2.7 H* (<1.0) mg/dL Total Protein 6.9 (6.4-8.2) g/dl Albumin 3.2 L (3.4-5.0) g/dl Globulin 3.7 gm/dL Albumin/Globulin Ratio 0.9 L (1-2) Procalcitonin (<0.10) ng/mL Adenovirus (PCR) (Not Detected) B. pertussis DNA (PCR) (Not Detected) B.parapertussis DNA PCR (Not Detected) C. pneumoniae DNA (PCR) (Not Detected) Coronavirus (PCR) (Not Detected) Human Metapneumovir PCR (Not Detected) Influenza A (RT-PCR) (Not Detected) Influenza B (RT-PCR) (Not Detected) M. pneumoniae (PCR) (Not Detected) Parainfluen 1,2,3,4 PCR (Not Detected) RSV (PCR) (Not Detected) Entero/Rhino (PCR) (Not Detected) AYE Results - Last 24 hrs: Microbiology 07/29/19 22:50 Streptococcus pneumoniae Antigen (M - Final Urine 07/29/19 22:50 Legionella Urinary Antigen - Final Urine 07/29/19 17:58 Aerobic Blood Culture - Preliminary Blood - Venous NO GROWTH AFTER 1 DAY Anaerobic Blood Culture - Preliminary NO GROWTH AFTER 1 DAY 07/29/19 17:40 Aerobic Blood Culture - Preliminary Blood - Venous - Lab Draw NO GROWTH AFTER 1 DAY Anaerobic Blood Culture - Preliminary NO GROWTH AFTER 1 DAY Med Orders - Current: Current Medications Acetaminophen (Tylenol) 650 mg PO Q4H PRN PRN Reason: Pain (Mild 1-3)/fever Albuterol (Proventil Neb Soln) 2.5 mg NEB Q2H PRN PRN Reason: Shortness Of Breath/wheezing Albuterol/Ipratropium (Duoneb 3.0-0.5 Mg/3 Ml) 3 ml NEB Q4H [facility] Last Admin: 07/31/19 11:14 Dose: 3 ml Aspirin (Aspirin) 81 mg PO DAILY [facility] Last Admin: 07/31/19 08:32 Dose: 81 mg Azithromycin (Zithromax) 250 mg PO Q24H [facility] Stop: 08/03/19 19:01 Last Admin: 07/30/19 18:29 Dose: 250 mg Buspirone HCl (Buspar) 30 mg PO BEDTIME [facility] Last Admin: 07/30/19 20:16 Dose: 30 mg Enoxaparin Sodium (Lovenox) 40 mg SUBCUT BID [facility] Last Admin: 07/31/19 08:40 Dose: 40 mg Fluoxetine HCl (Prozac) 60 mg PO DAILY [facility] Last Admin: 07/31/19 08:32 Dose: 60 mg Furosemide (Lasix) 40 mg PO DAILY [facility] Last Admin: 07/31/19 08:33 Dose: 40 mg Ceftriaxone Sodium 2 gm/ (Sodium Chloride) 100 mls @ 200 mls/hr IV Q24H [facility] Last Admin: 07/30/19 18:27 Dose: 200 mls/hr Ibuprofen (Motrin) 600 mg PO Q6H PRN PRN Reason: Pain (moderate 4-6) Insulin Glargine (Lantus) 55 unit SUBCUT Q24H [facility] Last Admin: 07/30/19 17:38 Dose: 55 units Insulin Human Lispro (Humalog) 15 unit SUBCUT TIDMEALS [facility] Last Admin: 07/31/19 11:06 Dose: 15 unit Insulin Human Lispro (Humalog) 0 unit SUBCUT QIDACANDBED [facility]; Protocol Last Admin: 07/31/19 11:07 Dose: 8 unit Metoprolol Succinate (Toprol Xl) 25 mg PO DAILY [facility] Last Admin: 07/31/19 08:37 Dose: 25 mg Nystatin (Nystatin Crm) 1 gm TOP BID PRN PRN Reason: ayad Ondansetron HCl (Zofran) 4 mg IV Q4H PRN PRN Reason: Nausea/Vomiting Oxcarbazepine (Trileptal) 300 mg PO BID [facility] Last Admin: 07/31/19 08:29 Dose: 300 mg Potassium Chloride (Klor-Con M20) 20 meq PO DAILY [facility] Last Admin: 07/31/19 08:32 Dose: 20 meq Prednisone (Prednisone) 40 mg PO WITHBREAKFAST [facility] Last Admin: 07/31/19 06:03 Dose: 40 mg Rosuvastatin Calcium (Crestor) 10 mg PO DAILY [facility] Last Admin: 07/31/19 08:28 Dose: 10 mg Sodium Chloride (Saline Flush) 10 ml FLUSH ASDIRECTED PRN PRN Reason: Keep Vein Open Last Admin: 07/29/19 17:39 Dose: 10 ml Discontinued Medications Acetaminophen (Tylenol) 975 mg PO NOW ONE Stop: 07/29/19 17:29 Last Admin: 07/29/19 17:39 Dose: 975 mg Furosemide (Lasix) 60 mg IVPUSH NOW ONE Stop: 07/29/19 17:29 Last Admin: 07/29/19 17:39 Dose: 60 mg Azithromycin 1,000 mg/ Sodium (Chloride) 500 mls @ 250 mls/hr IV ONETIME ONE Stop: 07/29/19 21:07 Last Admin: 07/29/19 19:46 Dose: 250 mls/hr Insulin Glargine (Lantus) 55 unit SUBCUT BEDTIME [facility] Insulin Glargine (Lantus) 15 unit SUBCUT QPM [facility] Insulin Glargine (Lantus) 55 unit SUBCUT Q24H [facility] Last Admin: 07/30/19 17:41 Dose: Not Given Insulin Human Lispro (Humalog) 0 unit SUBCUT QIDACANDBED [facility]; Protocol Last Admin: 07/30/19 12:25 Dose: 5 unit Insulin Human Lispro (Humalog) 0 unit SUBCUT QIDACANDBED [facility]; Protocol Lidocaine HCl (Xylocaine 2% Jelly) 10 ml MUCMEM ONETIME ONE Stop: 07/29/19 17:47 Last Admin: 07/29/19 17:48 Dose: 10 ml Nystatin (Nystatin Oral Syringe) 500,000 unit PO QID [facility] Last Admin: 07/30/19 12:25 Dose: 500,000 unit Prednisone (Prednisone) 40 mg PO ONETIME ONE Stop: 07/29/19 21:40 Last Admin: 07/29/19 22:42 Dose: 40 mg Succinylcholine Chloride (Quelicin) Confirm Administered Dose 200 mg .ROUTE .STK -MED ONE Stop: 07/29/19 17:19 Last Admin: 07/30/19 08:30 Dose: Not Given - Exam Quality Assessment: Reports: Supplemental Oxygen General: Reports: Alert HEENT: Reports: Pupils Equal, Pupils Reactive, EOMI, Mucous Membr. Moist/[place] Neck: Reports: Supple Lungs: Reports: Clear to Auscultation, Normal Respiratory Effort Cardiovascular: Reports: Regular Rate, Regular Rhythm GI/Abdominal Exam: Normal Bowel Sounds, Soft, Non-Tender, No Organomegaly, No Distention, No Abnormal Bruit, No Mass Extremities: Normal Inspection, Normal Range of Motion, Non-Tender, No Pedal Edema, Normal Capillary Refill Neurological: Reports: No New Focal Deficit
[2019-07-31 12:13] VITALS: BP 133/72; PULSE 86
== END 2019-07-31 14:53 | DRG 189 ==
LOC: JD.ED 17:18 → JD.MS 19:57
PROVIDERS: ADMIT Family Medicine; ATTEND Family Medicine
PROC: 5A09357 Assistance with Respiratory Ventilation, Less than 24 Consecutive Hours, Continuous Positive Airway Pressure (ICD-10-PCS; principal; 2019-07-29)
DX: J14 Pneumonia due to Hemophilus influenzae (principal); J96.01 Acute respiratory failure with hypoxia; R09.02 Hypoxemia; R06.89 Other abnormalities of breathing; J44.1 Chronic obstructive pulmonary disease with (acute) exacerbation; E11.65 Type 2 diabetes mellitus with hyperglycemia; Z68.43 Body mass index [BMI] 50.0-59.9, adult; J96.02 Acute respiratory failure with hypercapnia; E66.01 Morbid (severe) obesity due to excess calories; R50.9 Fever, unspecified; E11.9 Type 2 diabetes mellitus without complications; G40.909 Epilepsy, unspecified, not intractable, without status epilepticus; F79 Unspecified intellectual disabilities; I50.9 Heart failure, unspecified; G47.30 Sleep apnea, unspecified; Z79.84 Long term (current) use of oral hypoglycemic drugs; I11.0 Hypertensive heart disease with heart failure; R32 Unspecified urinary incontinence; F41.9 Anxiety disorder, unspecified; F32.9 Major depressive disorder, single episode, unspecified; R62.50 Unspecified lack of expected normal physiological development in childhood; I87.2 Venous insufficiency (chronic) (peripheral); Z79.82 Long term (current) use of aspirin; Z79.899 Other long term (current) drug therapy; Z79.4 Long term (current) use of insulin; Z98.49 Cataract extraction status, unspecified eye; Z99.81 Dependence on supplemental oxygen
CPT/HCPCS: 36415; 36600; 71045; 71045-26; 80053; 81001; 82553; 82803; 82947; 82962; 83036; 83605; 83735; 83880; 84145; 84443; 84484; 85007; 85025; 85027; 85379; 85610; 85730; 86140; 86738; 87040; 87486; 87581; 87632; 87641; 87798; 87804; 87899; 93005; 93010; 94640; 94660; 94760; 94761; 96365; 96375; 97116-GP; 97162-GP; 97165-GO; 97530-GO; 99285; 99285-25; A9270-GY; J0456; J0696; J1650; J1815-GY; J1940; J7030; J7040; J7620-GY